=== PATIENT | male | born 1975 | race Caucasian/White ===

== ENCOUNTER 2021-10-15 10:24 | Emergency (ER) | payer MEDICAID, SELFPAY ==
[2021-10-15 10:43] VITALS: BP 158/100; PULSE 83; RESP 18; TEMP 36; O2SAT 98; BMI 33.9
--- NOTE | 2021-10-15 10:55 | ED_ITS ---
HPI - Alcohol General Chief Complaint: ETOH/Substance Use Stated Complaint: Alcohol withdrawals/detox Time Seen by Provider: 10/15/21 10:54 Source: patient Mode of arrival: ambulatory Limitations: no limitations History of Present Illness MD complaint: alcohol withdrawal, alcohol dependence and desires rehab Last drink: Hours (ago) (took a shot this AM) Chronic alcohol use: Yes Previous visits for alcohol intoxication: Yes Recent trauma: No Associated symptoms: nausea and tremors Treatments prior to arrival: none Related Data Allergies Allergy/AdvReac Type Severity Reaction Status Date / Time codeine [CODEINE] Allergy Unknown CONSTIPATIO Verified 10/15/21 10:42 N Review of Systems Review of Systems: Constitutional : No Fever, No Chills ENT/Mouth : No Ear Pain, No Nasal Congestion, No sore throat Eyes: No Eye Pain, No Swelling, No Redness Cardiovascular : No Chest Pain, No SOB Respiratory : No Cough, No Sputum, No Dyspnea Gastrointestinal : pos Nausea, pos Vomiting, No Diarrhea, No Hematochezia, No Melena Genitourinary : No Dysuria, No Urinary Frequency, No Hematuria Musculoskeletal : No Myalgias Skin : No Skin Lesions, No rash Neuro : pos Weakness, No Numbness, No Paresthesias, No Dizziness, No Headache Psych : positive Anxiety, positive Depression, no SI/HI Heme/Lymph: No Lymphadenopathy Endocrine : No Polyuria, No Polydipsia All other systems reviewed and are negative [facility] Past Medical History Attestation statement: The following information was validated with the patient. Medical History Alcoholism HTN (hypertension) Substance abuse Social History Social History (Updated 10/15/21 @ 11:29 by Elaina Saunders DO) Alcohol intake: current Patient Tobacco Use Status: Current someday Tobacco user Substance Use Type: Crack/Cocaine Advance Directives: No Advance Directives Information Provided: Yes Physical Exam Vital Signs: Vital Signs: Last Vital Signs Temp 96.8 F 10/15/21 10:43 Pulse 96 10/15/21 14:50 Resp 20 10/15/21 14:50 BP 150/81 H 10/15/21 14:50 Pulse Ox 98 10/15/21 10:43 BMI result Body Mass Index 33.9 Appearance: Alert. Oriented X3. No acute distress. Anxious Eyes: Pupils equal, round and reactive to light. ENT: Pharynx normal. Neck: Normal inspection. Neck supple. CVS: tachycardic heart rate and rhythm. Pulses normal. Respiratory: No respiratory distress. Breath sounds normal. Abdomen: Soft and nontender. Skin: Skin warm and dry. Normal skin color. Normal skin turgor. Extremities: No lower extremity edema. No calf ttp Neuro: Oriented X 3. No motor deficit. No sensory deficit. slight tremor Course Course Course Narrative: patint looks much better at this time trying to get a bed with detox - recovery team helping patient looks much better, medically cleared for detox MDM - Alcohol MDM Narrative Medical decision making narrative: 46 yo male with hx of HTN, ETOH abuse rel apsed 5 months ago, did use cocaine recently here with c/o n/v and feeling shaky at this time will need labs, IVF, IV ativan for withdrawal. Will attempt to improve him if no response will admit vs detox - recovery coaches aware. Lab Data Result diagrams: 10/15/21 11:27 10/15/21 11:27 Labs: Lab Results 10/15/21 10/15/21 10/15/21 Range/Units 11:27 11:27 11:27 WBC 8.8 (4.8-10.8) X10*3/uL RBC 4.85 (4.60-5.80) X10*6/uL Hgb 14.8 (14.0-18.0) g/dl Hct 43.5 (42.0-52.0) % MCV 89.7 (80.0-98.0) fL MCH 30.5 (27.0-33.0) pg MCHC 34.0 (31.0-36.0) g/dl RDW 15.4 (11.0-16.0) % Plt Count 370 (160-400) X10*3/uL MPV 8.2 L (9.4-12.4) fL Immature Gran % (Auto) 0.3 (0.0-0.4) % Neut % (Auto) 83.0 H (45-73) % Lymph % (Auto) 11.9 L (20-40) % [place] % (Auto) 4.1 (2-11) % Eos % (Auto) 0.0 (0-4) % Baso % (Auto) 0.7 (0-2) % Lymph # (Auto) 1.0 L (1.2-4.9) X10*3/uL [place] # (Auto) 0.4 (0.1-1.2) X10*3/uL Eos # (Auto) 0.0 (0.0-0.4) X10*3/uL Baso # (Auto) 0.1 (0.0-0.2) X10*3/uL Abs Immat Gran (auto) 0.03 (0.00-0.03) X10*3/uL Absolute Neuts (auto) 7.3 (2.0-8.3) x10*3/uL Absolute Nucleated RBC 0.000 (0.0-0.012) X10*3/uL Nucleated RBC % (auto) 0.0 (0.0-0.2) /100WBC Sodium 141 (135-145) mmol/L Potassium 4.0 (3.3-5.1) mmol/L Chloride 105 (96-108) mmol/L Carbon Dioxide 21 L (22-29) mmol/L Anion Gap 19 (12-20) BUN 14 (9-16) mg/dL Creatinine 0.95 (0.5-1.4) mg/dL Estim Creat Clear Calc 102.7 Estimated GFR > 60 Random Glucose 112 (60-115) mg/dL Calcium 9.7 (8.4-10.2) mg/dL Magnesium 1.6 (1.6-2.6) mg/dL Total Bilirubin 0.6 (0.0-1.0) mg/dL Direct Bilirubin 0.2 (0.0-0.5) mg/dL AST 40 H (5-37) U/L ALT 36 (0-40) U/L Alkaline Phosphatase 96 (39-117) U/L Total Protein 8.0 (6.5-8.0) g/dL Albumin 4.5 (3.5-5.0) g/dL Lipase 57 (8-78) U/L Urine Opiates Screen (Not Detect) Urine Fentanyl Screen (Not Detect) Ur Barbiturates Screen (Not Detect) Ur Phencyclidine Scrn (Not Detect) Ur Amphetamines Screen (Not Detect) U Benzodiazepines Scrn (Not Detect) Urine Cocaine Screen (Not Detect) U Marijuana (THC) Screen (Not Detect) Ethyl Alcohol mg/dL COVID-19 (MATILDE) Negative (Negative) COVID-19 Clin Com See Note 10/15/21 10/15/21 Range/Units 11:27 13:36 WBC (4.8-10.8) X10*3/uL RBC (4.60-5.80) X10*6/uL Hgb (14.0-18.0) g/dl Hct (42.0-52.0) % MCV (80.0-98.0) fL MCH (27.0-33.0) pg MCHC (31.0-36.0) g/dl RDW (11.0-16.0) % Plt Count (160-400) X10*3/uL MPV (9.4-12.4) fL Immature Gran % (Auto) (0.0-0.4) % Neut % (Auto) (45-73) % Lymph % (Auto) (20-40) % [place] % (Auto) (2-11) % Eos % (Auto) (0-4) % Baso % (Auto) (0-2) % Lymph # (Auto) (1.2-4.9) X10*3/uL [place] # (Auto) (0.1-1.2) X10*3/uL Eos # (Auto) (0.0-0.4) X10*3/uL Baso # (Auto) (0.0-0.2) X10*3/uL Abs Immat Gran (auto) (0.00-0.03) X10*3/uL Absolute Neuts (auto) (2.0-8.3) x10*3/uL Absolute Nucleated RBC (0.0-0.012) X10*3/uL Nucleated RBC % (auto) (0.0-0.2) /100WBC Sodium (135-145) mmol/L Potassium (3.3-5.1) mmol/L Chloride (96-108) mmol/L Carbon Dioxide (22-29) mmol/L Anion Gap (12-20) BUN (9-16) mg/dL Creatinine (0.5-1.4) mg/dL Estim Creat Clear Calc Estimated GFR Random Glucose (60-115) mg/dL Calcium (8.4-10.2) mg/dL Magnesium (1.6-2.6) mg/dL Total Bilirubin (0.0-1.0) mg/dL Direct Bilirubin (0.0-0.5) mg/dL AST (5-37) U/L ALT (0-40) U/L Alkaline Phosphatase (39-117) U/L Total Protein (6.5-8.0) g/dL Albumin (3.5-5.0) g/dL Lipase (8-78) U/L Urine Opiates Screen Not Detected (Not Detect) Urine Fentanyl Screen POSITIVE H (Not Detect) Ur Barbiturates Screen Not Detected (Not Detect) Ur Phencyclidine Scrn Not Detected (Not Detect) Ur Amphetamines Screen Not Detected (Not Detect) U Benzodiazepines Scrn Not Detected (Not Detect) Urine Cocaine Screen POSITIVE H (Not Detect) U Marijuana (THC) Screen POSITIVE H (Not Detect) Ethyl Alcohol 34 mg/dL COVID-19 (MATILDE) (Negative) COVID-19 Clin Com ECG Data ECG #1: Attestation: I personally reviewed and interpreted this ECG as follows: ECG interpretation date: 10/15/21 ECG interpretation time: 12:02 Interpretation: Rate: 87 Rhythm: NSR [place]: left Normal P waves. Normal JOHN. incomplete RBBB ST T wave : normal no KOKO qTC: normal prior studies: no acute ischemia The study has been interpreted contemporaneously by me. . Discharge Plan Discharge Clinical Impression: Alcohol withdrawal syndrome Patient Disposition: Home, Self-Care Instructions: Abuse of Alcohol (ED), Alcohol Withdrawal (ED) Additional Instructions: return to ED for any worsening symptoms or concerns please go to detox
--- NOTE | 2021-10-15 11:05 | ECG_ITS ---
Test Reason : ETOH Blood Pressure : / mmHG Vent. Rate : 087 BPM Atrial Rate : 087 BPM P-R Int : 162 ms QRS Dur : 098 ms QT Int : 358 ms P-R-T Axes : 053 -26 012 degrees QTc Int : 430 ms Normal sinus rhythm with sinus arrhythmia Incomplete right bundle branch block Borderline ECG When compared with ECG of 13-MAR-2004 21:54, No significant change was found Referred By: Elaina Saunders Electronically Signed By:Malcom Leslie
[2021-10-15 11:33] LABS: MANUAL DIFF FLAG NO
[2021-10-15] MEDS: 0.9 % Sodium Chloride 1,000 ML 999 ML IVCONT ×2 (11:34→12:43)
[2021-10-15] MEDS: LORazepam 2 MG/ML VIAL IVPUSH (11:34)
[2021-10-15] MEDS: ondansetron HCL 4 MG/2 ML VIAL IVPUSH (11:34)
[2021-10-15 11:35] LABS: Basophils Absolute Auto 0.1 X10*3/uL (0.0-0.2); Basophils Percent Auto 0.7 % (0-2); Hematocrit 43.5 % (42.0-52.0); Hemoglobin 14.8 g/dl (14.0-18.0); Imm Gran Abs Auto 0.03 X10*3/uL (0.00-0.03); Imm Gran Pct Auto 0.3 % (0.0-0.4); Lymphocytes Percent Auto 11.9 % (20-40); Mean Corpuscular Hemoglobin 30.5 pg (27.0-33.0); Mean Corpuscular Volume 89.7 fL (80.0-98.0); Mean Platelet Volume 8.2 fL (9.4-12.4); Monocytes Absolute Auto 0.4 X10*3/uL (0.1-1.2); Monocytes Percent Auto 4.1 % (2-11); Neutrophils Absolute Auto 7.3 x10*3/uL (2.0-8.3); Platelet Count 370 X10*3/uL (160-400); Red Blood Count 4.85 X10*6/uL (4.60-5.80); Red Cell Distribution Width 15.4 % (11.0-16.0); White Blood Count 8.8 X10*3/uL (4.8-10.8)
[2021-10-15 11:49] LABS: Ethanol 34 mg/dL
[2021-10-15 11:54] LABS: Alanine Aminotransferase 36 U/L (0-40); Albumin Level 4.5 g/dL (3.5-5.0); Alkaline Phosphatase 96 U/L (39-117); Anion Gap 19 (12-20); Aspartate Amino Transferase 40 U/L (5-37); Bilirubin Direct 0.2 mg/dL (0.0-0.5); Bilirubin Total 0.6 mg/dL (0.0-1.0); Blood Urea Nitrogen 14 mg/dL (9-16); Calcium 9.7 mg/dL (8.4-10.2); Carbon Dioxide 21 mmol/L (22-29); Chloride 105 mmol/L (96-108); Creatinine Clr Calc Pharmacy 102.7; Estimated Glomerular Filt Rate > 60; Glucose Random 112 mg/dL (60-115); Lipase 57 U/L (8-78); Magnesium 1.6 mg/dL (1.6-2.6); Sodium 141 mmol/L (135-145)
[2021-10-15 12:05] LABS: COVID-19 Test Negative (Negative)
--- NOTE | 2021-10-15 12:30 | MHC.RECOVSUP ---
? Reason for consult:Recovery Support o Current location:ED22 o Identified substance use concern: ETOH - Withdrawal - Seeking ATS (detox) - Support ? Intervention: o ATS bed search started/completed/in process o MAT started or to be started o Community resources provided o Harm reduction discussion ? Plan: o Referral to CCC o Bed search in progress to o Patient to follow up with [facility] after discharge ? Additional information: Patient seeking detox, currently have a bed pending with [facility]. Patient given community resources and pt waiting for a bed.
[2021-10-15] MEDS: chlordiazePOXIDE HCl 25 MG CAPSULE 50 MG PO (13:48)
[2021-10-15 13:51] VITALS: BP 152/113; PULSE 105; RESP 14
[2021-10-15 14:01] LABS: Amphetamine Screen Urine Not Detected (Not Detect); Barbiturates, Urine Not Detected (Not Detect); Benzodiazepines Screen Urine Not Detected (Not Detect); Cannabinoid Screen Urine POSITIVE (Not Detect); Cocaine Screen Urine POSITIVE (Not Detect); Fentanyl, urine POSITIVE (Not Detect); Opiate Screen Urine Not Detected (Not Detect); Phencyclidine Screen Urine Not Detected (Not Detect)
[2021-10-15 14:50] VITALS: BP 150/81; PULSE 96; RESP 20
--- NOTE | 2021-10-15 15:41 | MHC.RECOVRN ---
Pt accepted to [facility] ATS in [place]. Pt will have clothes/belongings dropped off at [facility] around 7PM and can then be discharged to [facility]. Oma at [facility] aware that pt will be presenting around 9PM. Discussed with Dr. Saunders as well as CARE Team.
[2021-10-15] MEDS: chlordiazePOXIDE HCl 25 MG CAPSULE 75 MG PO (16:00)
== END 2021-10-15 18:12 | disposition home or self-care (01) ==
PROVIDERS: Emergency Provider Emergency Medicine
DX: F10.239 Alcohol dependence with withdrawal, unspecified (principal); Y90.1 Blood alcohol level of 20-39 mg/100 ml; R11.0 Nausea; R25.1 Tremor, unspecified; Z20.822 Contact with and (suspected) exposure to COVID-19; Z79.899 Other long term (current) drug therapy
CPT/HCPCS: 36415; 80048; 80076; 80307; 82077; 83690; 83735; 85025; 87635; 93005; 96361; 96374; 96375; 99284; J2060; J2405

== ENCOUNTER 2021-10-28 14:38 | Emergency (ER) | payer MEDICAID, SELFPAY ==
[2021-10-28 14:55] VITALS: BP 128/85; BP 200/100; PULSE 100; PULSE 102; RESP 18; O2SAT 94; O2SAT 99; BMI 33.9
--- NOTE | 2021-10-28 15:09 | ED.GENADULT ---
HPI - General Adult General Chief complaint: ETOH/Substance Use Stated complaint: ETOH,CHRONIC BACK PAIN,HIGH BP 200/112 Time Seen by Provider: 10/28/21 14:42 Source: patient, EMS and old records reviewed History of Present Illness HPI narrative: Patient with several medical complaints. 1. Back pain, acute on chronic. Patient with a history of spondylolisthesis L5 on S1. Has been on gabapentin for this in the past but has no primary care physician and is not taking any meds current week. No recent traumas other than a fall. No bowel or bladder incontinence. Complains of pain radiating down his leg. He states it is 10 on 10 and the worst it has ever been. 2. Alcohol use disorder. Patient with recent visit here, 2 weeks ago for alcohol withdrawal. At the time he was placed and detox and was tear. He was there for 4 days but left stating the Valium made him sick. He states he had 10 shots today. Denies withdrawal symptoms at the moment. He states he needs a ?level 4 ?detox center. He has not been any other detox facilities other than the 1 in was 2. 3. Hypertension. Patient states he used to be on propranolol for hypertension but since he has no PCP has not been on any medications. Blood pressure was systolic of 200 for EMS. Currently in the emergency department is much better controlled 128/85. 4. Homelessness. Patient called an ambulance from his tent in [facility] He has a primary care appointment set up in December, but that is an emergent [place]. He states he will take a bus if needed. He states he has had 2 doses of COVID-19 vaccine, last 1 in May Related Data Allergies Allergy/AdvReac Type Severity Reaction Status Date / Time codeine [CODEINE] Allergy Unknown CONSTIPATIO Verified 10/15/21 10:42 N diazepam [From Valium] AdvReac Hypertensio Verified 10/28/21 15:01 n Review of Systems Constitutional: Constitutional: Denies fever(s) Cardiovascular: Comments: No chest pain Respiratory: Comments: No cough or difficulty breathing Gastrointestinal: Comments: No nausea vomiting Musculoskeletal: Comments: Back pain radiating down leg Integumentary/Breasts: Comments: No rash Neurologic: Comments: Difficulty walking but no other signs of weakness PMFSH Past Medical History Medical History Alcoholism HTN (hypertension) Substance abuse Social History Social History (Updated 10/15/21 @ 11:29 by Elaina Saunders DO) Alcohol intake: current Patient Tobacco Use Status: Current someday Tobacco user Substance Use Type: Crack/Cocaine Advance Directives: No Advance Directives Information Provided: No Physical Exam Vital Signs: Vital Signs: Last Vital Signs Pulse 102 H 10/28/21 14:55 Resp 18 10/28/21 14:55 BP 128/85 10/28/21 14:55 Pulse Ox 99 10/28/21 14:55 BMI result Body Mass Index 33.9 Course Course Course Narrative: Alcohol use disorder Acute on chronic back pain with radiculopathy without evidence of neurologic compromise Hypertension, untreated Homelessness Ativan and Toradol and gabapentin ordered, but patient stated he wanted to leave to have a cigarette and left AMA before treatment here in the emergency department. Ambulates without difficulty We encouraged he stay and seek help but he declines. Although likely intoxicated, he is not slurring his words and appears capable of making his own healthcare decisions, and does not have any apparent immediately life or limb threatening conditions Discharge Plan Discharge Clinical Impression: Alcohol use disorder, moderate, dependence Sciatica Qualifiers: Laterality: unspecified laterality Qualified Code(s): M54.30 - Sciatica, unspecified side Patient Disposition: Left Against Medical Advice Instructions: Alcohol Use Disorder (ED), Sciatica (ED)
--- NOTE | 2021-10-28 15:19 | PC.NURSE ---
pt ambulating around the ed with a steady gait. he was asking to go out to smoke a cigarette, he was educated on the policy and that he cannot leave campus an ER pt. He then became verbally abrasive and collected his belongings and left the ED. is aware that the patient has eloped.
== END 2021-10-28 15:20 | disposition left against medical advice (07) ==
PROVIDERS: Emergency Provider Emergency Medicine
DX: F10.20 Alcohol dependence, uncomplicated (principal); Y90.9 Presence of alcohol in blood, level not specified; M54.40 Lumbago with sciatica, unspecified side; I10 Essential (primary) hypertension; F14.10 Cocaine abuse, uncomplicated
CPT/HCPCS: 99281

== ENCOUNTER 2021-10-29 15:08 | Emergency (ER) | payer MEDICAID, SELFPAY ==
[2021-10-29] MEDS: LORazepam 1 MG TABLET 2 MG PO (16:04)
[2021-10-29] MEDS: Ibuprofen 600 MG TABLET PO (16:22)
[2021-10-29] MEDS: Acetaminophen 325 MG TABLET 650 MG PO (16:22)
[2021-10-29 16:30] VITALS: BP 180/112; PULSE 111; RESP 18; TEMP 36.8; O2SAT 97; BMI 33.9
--- NOTE | 2021-10-29 16:55 | PC.NURSE ---
Patient escorted by staff and security in to pod was able to communicate issues with this nurse and EXPELL[employer] WORKER Carlos. Aware of plan of care to have labs drawn and speak with CARE team. Will continue to monitor.
[2021-10-29 17:10] LABS: MANUAL DIFF FLAG NO
[2021-10-29 17:13] LABS: Basophils Absolute Auto 0.1 X10*3/uL (0.0-0.2); Basophils Percent Auto 0.9 % (0-2); Eosinophils Absolute Auto 0.1 X10*3/uL (0.0-0.4); Eosinophils Percent Auto 0.8 % (0-4); Hematocrit 42.9 % (42.0-52.0); Hemoglobin 14.5 g/dl (14.0-18.0); Imm Gran Abs Auto 0.06 X10*3/uL (0.00-0.03); Imm Gran Pct Auto 0.6 % (0.0-0.4); Lymphocytes Percent Auto 28.6 % (20-40); Mean Corpuscular HGB Conc 33.8 g/dl (31.0-36.0); Mean Corpuscular Hemoglobin 29.9 pg (27.0-33.0); Mean Corpuscular Volume 88.5 fL (80.0-98.0); Mean Platelet Volume 8.5 fL (9.4-12.4); Monocytes Absolute Auto 0.6 X10*3/uL (0.1-1.2); Monocytes Percent Auto 6.1 % (2-11); Neutrophils Absolute Auto 6.7 x10*3/uL (2.0-8.3); Platelet Count 384 X10*3/uL (160-400); Red Blood Count 4.85 X10*6/uL (4.60-5.80); Red Cell Distribution Width 14.7 % (11.0-16.0); White Blood Count 10.5 X10*3/uL (4.8-10.8)
[2021-10-29 17:28] LABS: Ethanol 57 mg/dL
[2021-10-29 17:29] LABS: COVID-19 Test Negative (Negative); IDNOW Serial# 9DD0AD1C
[2021-10-29 17:31] LABS: Amphetamine Screen Urine Not Detected (Not Detect); Barbiturates, Urine Not Detected (Not Detect); Benzodiazepines Screen Urine POSITIVE (Not Detect); Cannabinoid Screen Urine POSITIVE (Not Detect); Cocaine Screen Urine Not Detected (Not Detect); Fentanyl, urine Not Detected (Not Detect); Opiate Screen Urine Not Detected (Not Detect); Phencyclidine Screen Urine Not Detected (Not Detect)
[2021-10-29 17:32] LABS: Alanine Aminotransferase 47 U/L (0-40); Albumin Level 4.4 g/dL (3.5-5.0); Alkaline Phosphatase 114 U/L (39-117); Anion Gap 14 (12-20); Aspartate Amino Transferase 35 U/L (5-37); Bilirubin Total 0.4 mg/dL (0.0-1.0); Blood Urea Nitrogen 9 mg/dL (9-16); Calcium 9.9 mg/dL (8.4-10.2); Carbon Dioxide 25 mmol/L (22-29); Chloride 107 mmol/L (96-108); Creatinine Clr Calc Pharmacy 86.3; Estimated Glomerular Filt Rate > 60; Glucose Random 89 mg/dL (60-115); Sodium 142 mmol/L (135-145); Total Protein 7.8 g/dL (6.5-8.0)
--- NOTE | 2021-10-29 17:59 | PC.NURSE ---
speaking to crisis staff at this time
--- NOTE | 2021-10-29 18:14 | ED.PSYCH ---
HPI - Psych General Chief Complaint: Psychiatric Symptoms Stated Complaint: Crisis Time Seen by Provider: 10/29/21 15:53 Source: patient Mode of arrival: ambulatory Limitations: no limitations History of Present Illness HPI Narrative: Patient presents to ED for medical and psych clearance for detox. Patient spoke with a detox program was informed that he would need to be seen and cleared medically and evaluated by crisis due to psych history. Patient was in parking lot and became aggressive toward myself and ED staff when he realized his can not stay with him in the ED due to no visitor rule due to covid pandemic. As per patient is not compliant with psych meds and she want him to be evaluated. Patient was not suicidal/ homicidal. believes crisis and detox evaluation is necesarry so patient was Section 12 and brought to the ED. Patient and states he has a bed at a detox program and just needs be medically and crisis evaluated. Related Data Allergies Allergy/AdvReac Type Severity Reaction Status Date / Time codeine [CODEINE] Allergy Unknown CONSTIPATIO Verified 10/15/21 10:42 N diazepam [From Valium] AdvReac Hypertensio Verified 10/28/21 15:01 n Review of Systems Review of Systems: Yes all other systems are reviewed and are negative [facility] Past Medical History Medical History Alcoholism HTN (hypertension) Substance abuse Social History Social History (Updated 10/15/21 @ 11:29 by Elaina Saunders DO) Alcohol intake: current Patient Tobacco Use Status: Current someday Tobacco user Substance Use Type: Crack/Cocaine Advance Directives: No Advance Directives Information Provided: No Physical Exam Vital Signs: Vital Signs: Last Vital Signs Temp 98.3 F 10/29/21 18:24 Pulse 110 H 10/29/21 18:24 Resp 16 10/29/21 18:24 BP 145/115 H 10/29/21 18:24 Pulse Ox 97 10/29/21 18:24 BMI result Body Mass Index 33.9 Const: General: cooperative, healthy appearing, comfortable, no acute distress, well developed, alert, awake and Physically active Orientation/consciousness: patient oriented x3 HENMT: Head: Yes normal to inspection, Yes No palpable skull fracture present, Yes normocephalic, Yes atraumatic and No abrasion Eyes: General: appearance normal, both eyes and all related structures Neck: Neck: Yes normal visual inspection, Yes full ROM, Yes no lymphadenopathy, Yes no meningeal signs, Yes trachea midline, Yes supple, No anterior neck swelling and No tender Chest: Chest palpation & inspection: normal inspection of the chest and normal palpation of entire chest wall Resp: Effort & Inspection: normal respiratory effort and able to speak in complete sentences Auscultation: clear to auscultation bilaterally Cardio: Jugular venous distension: no JVD Heart sounds: S1 normal heart sound present and S2 normal heart sound present GI: Inspection: Yes normal to inspection and No abdominal wall ecchymosis Palpation (GI): Soft to palpation, not firm, nontender, no guarding and not rigid : General: No CVA tenderness and Yes no CVA tenderness Back/Spine/Pelvis: Back: no CVA tenderness, No CVA tenderness and No back tenderness Skin: General skin exam: no rashes or lesions noted and elasticity normal Neuro: General: patient oriented x3, gait normal, no meningeal signs and CN's II-XI intact bilaterally Cranial nerves: Yes CN's II-XII intact bilaterally Extrem: General: Yes normal to inspection and Yes full ROM Psych: Appearance: grossly normal, well kempt and not disheveled Course Course Course Narrative: Labs and care team. Patient hypertensive due to blood pressure being taking well patient was arguing with security and medical staff. Reevaluation(s) Reevaluation #1: Patient labs are normal. Patient medically clean. Care team consulted Leonila evaluated patient states patient could be discharged and given referral for outpatient detox for detox. Patient will call detox program where he has a bed tomorrow morning to go to facility. patient picked up by . Patient is A0x3 and calm. Time: 18:16 MDM - Psych MDM Narrative Medical decision making narrative: Detox Lab Data Result diagrams: 10/29/21 17:05 10/29/21 17:05 Labs: Lab Results 10/29/21 10/29/21 10/29/21 Range/Units 17:05 17:05 17:05 WBC 10.5 (4.8-10.8) X10*3/uL RBC 4.85 (4.60-5.80) X10*6/uL Hgb 14.5 (14.0-18.0) g/dl Hct 42.9 (42.0-52.0) % MCV 88.5 (80.0-98.0) fL MCH 29.9 (27.0-33.0) pg MCHC 33.8 (31.0-36.0) g/dl RDW 14.7 (11.0-16.0) % Plt Count 384 (160-400) X10*3/uL MPV 8.5 L (9.4-12.4) fL Immature Gran % (Auto) 0.6 H (0.0-0.4) % Neut % (Auto) 63.0 (45-73) % Lymph % (Auto) 28.6 (20-40) % [place] % (Auto) 6.1 (2-11) % Eos % (Auto) 0.8 (0-4) % Baso % (Auto) 0.9 (0-2) % Lymph # (Auto) 3.0 (1.2-4.9) X10*3/uL [place] # (Auto) 0.6 (0.1-1.2) X10*3/uL Eos # (Auto) 0.1 (0.0-0.4) X10*3/uL Baso # (Auto) 0.1 (0.0-0.2) X10*3/uL Abs Immat Gran (auto) 0.06 H (0.00-0.03) X10*3/uL Absolute Neuts (auto) 6.7 (2.0-8.3) x10*3/uL Absolute Nucleated RBC 0.000 (0.0-0.012) X10*3/uL Nucleated RBC % (auto) 0.0 (0.0-0.2) /100WBC Sodium 142 (135-145) mmol/L Potassium 4.0 (3.3-5.1) mmol/L Chloride 107 (96-108) mmol/L Carbon Dioxide 25 (22-29) mmol/L Anion Gap 14 (12-20) BUN 9 (9-16) mg/dL Creatinine 1.13 (0.5-1.4) mg/dL Estim Creat Clear Calc 86.3 Estimated GFR > 60 Random Glucose 89 (60-115) mg/dL Calcium 9.9 (8.4-10.2) mg/dL Total Bilirubin 0.4 (0.0-1.0) mg/dL AST 35 (5-37) U/L ALT 47 H (0-40) U/L Alkaline Phosphatase 114 (39-117) U/L Total Protein 7.8 (6.5-8.0) g/dL Albumin 4.4 (3.5-5.0) g/dL Urine Opiates Screen (Not Detect) Urine Fentanyl Screen (Not Detect) Ur Barbiturates Screen (Not Detect) Ur Phencyclidine Scrn (Not Detect) Ur Amphetamines Screen (Not Detect) U Benzodiazepines Scrn (Not Detect) Urine Cocaine Screen (Not Detect) U Marijuana (THC) Screen (Not Detect) Ethyl Alcohol mg/dL COVID-19 (MATILDE) Negative (Negative) COVID-19 Clin Com See Note 10/29/21 10/29/21 Range/Units 17:05 17:05 WBC (4.8-10.8) X10*3/uL RBC (4.60-5.80) X10*6/uL Hgb (14.0-18.0) g/dl Hct (42.0-52.0) % MCV (80.0-98.0) fL MCH (27.0-33.0) pg MCHC (31.0-36.0) g/dl RDW (11.0-16.0) % Plt Count (160-400) X10*3/uL MPV (9.4-12.4) fL Immature Gran % (Auto) (0.0-0.4) % Neut % (Auto) (45-73) % Lymph % (Auto) (20-40) % [place] % (Auto) (2-11) % Eos % (Auto) (0-4) % Baso % (Auto) (0-2) % Lymph # (Auto) (1.2-4.9) X10*3/uL [place] # (Auto) (0.1-1.2) X10*3/uL Eos # (Auto) (0.0-0.4) X10*3/uL Baso # (Auto) (0.0-0.2) X10*3/uL Abs Immat Gran (auto) (0.00-0.03) X10*3/uL Absolute Neuts (auto) (2.0-8.3) x10*3/uL Absolute Nucleated RBC (0.0-0.012) X10*3/uL Nucleated RBC % (auto) (0.0-0.2) /100WBC Sodium (135-145) mmol/L Potassium (3.3-5.1) mmol/L Chloride (96-108) mmol/L Carbon Dioxide (22-29) mmol/L Anion Gap (12-20) BUN (9-16) mg/dL Creatinine (0.5-1.4) mg/dL Estim Creat Clear Calc Estimated GFR Random Glucose (60-115) mg/dL Calcium (8.4-10.2) mg/dL Total Bilirubin (0.0-1.0) mg/dL AST (5-37) U/L ALT (0-40) U/L Alkaline Phosphatase (39-117) U/L Total Protein (6.5-8.0) g/dL Albumin (3.5-5.0) g/dL Urine Opiates Screen Not Detected (Not Detect) Urine Fentanyl Screen Not Detected (Not Detect) Ur Barbiturates Screen Not Detected (Not Detect) Ur Phencyclidine Scrn Not Detected (Not Detect) Ur Amphetamines Screen Not Detected (Not Detect) U Benzodiazepines Scrn POSITIVE H (Not Detect) Urine Cocaine Screen Not Detected (Not Detect) U Marijuana (THC) Screen POSITIVE H (Not Detect) Ethyl Alcohol 57 mg/dL COVID-19 (MATILDE) (Negative) COVID-19 Clin Com Discharge Plan Discharge Clinical Impression: Alcohol use Patient Disposition: Home, Self-Care Instructions: Alcohol Use Disorder (ED) Additional Instructions: You were cleared by crisis. Your medical cleared for detox. Please call your detox program for your bed tomorrow morning. Return to the ED immediately for any suicidal/homicidal ideation, auditory/visual hallucinations, physical complaints, or any other concerning symptoms. Please follow-up with therapist and Primary care provider Discharge Date/Time: 10/29/21 18:27 Print Language: Salvadorean
[2021-10-29 18:24] VITALS: BP 145/115; PULSE 110; RESP 16; TEMP 36.8; O2SAT 97
--- NOTE | 2021-10-29 18:25 | PC.NURSE ---
Patient is alert and oriented x 4 lung sounds are clear skin is pink warm and dry speaks in full sentences without difficulty. verbalized understanding of discharge instruction left with detox paperwork and belongings
== END 2021-10-29 18:27 | disposition home or self-care (01) ==
PROVIDERS: Physician Assistant; Emergency Provider Emergency Medicine
DX: F10.20 Alcohol dependence, uncomplicated (principal); Y90.2 Blood alcohol level of 40-59 mg/100 ml; I10 Essential (primary) hypertension; Z91.14 Patient's other noncompliance with medication regimen; Z20.822 Contact with and (suspected) exposure to COVID-19
CPT/HCPCS: 36415; 80053; 80307; 82077; 85025; 87635; 99283; 99284

== ENCOUNTER 2024-09-04 11:09 | Emergency (ER) | payer MEDICAID, SELFPAY ==
--- NOTE | ~2024-09-04 | US_ITS ---
EXAMINATION: US TRIPLEX LOWER EXTREMITY, RIGHT CLINICAL INFORMATION: Pain evaluate for DVT COMPARISON: Ultrasound lower extremity venous Doppler right from 06/23/2019 TECHNIQUE: Color-flow triplex imaging with spectral analysis and compression Doppler were performed on the right lower extremity. FINDINGS: Respiratory variation, normal compression and augmented flow are noted throughout the right lower extremity. The visualized common femoral vein, superficial femoral vein, profunda femoral vein, popliteal vein and midcalf peroneal and posterior tibial venous segments show no evidence of deep venous thrombosis. Contralateral common femoral vein is patent. There is no Haynes's cyst. Region of the right mid lateral side is unremarkable. US/US venous duplex LE RT IMPRESSION: No evidence of deep venous thrombosis involving the right lower extremity. Electronically signed by: Dada Persaud MD 09/04/2024 12:02 PM EDT
--- NOTE | 2024-09-04 11:21 | ED.GENADULT ---
HPI - General Adult General Chief complaint: General Medical Stated complaint: blood clot r leg-sent by pcp Time Seen by Provider: 09/04/24 11:30 Source: patient Mode of arrival: ambulatory Limitations: no limitations History of Present Illness ED Provider: Jayden Finney HPI narrative: Patient is a 49-year-old male who presents emergency department for evaluation of right lower extremity pain and swelling over the past 2 months to his anterior thigh. He states he has not sought evaluation for this yet. Denies numbness or tingling to the leg. Denies history of VTE/malignancy. Reports no fevers or chills. Endorses history of IV drug abuse, but not over the past 3 months Related Data Allergies Allergy/AdvReac Type Severity Reaction Status Date / Time codeine [CODEINE] Allergy Unknown CONSTIPATIO Verified 09/04/24 11:23 N diazepam [From Valium] AdvReac Hypertensio Verified 09/04/24 11:23 n Review of Systems Review of Systems: Yes all other systems are reviewed and are negative PMFSH Past Medical History Attestation statement: The following information was validated with the patient. Source: old records reviewed Medical History Substance abuse HTN (hypertension) Alcoholism Social History Social History (Updated 10/15/21 @ 11:29 by Pricilla Saunders DO) Alcohol intake: current Patient Tobacco Use Status: Current someday Tobacco user Substance Use Type: Crack/Cocaine Advance Directives: No Advance Directives Information Provided: No Do you have a plan to hurt others: No Plan Physical Exam ED Vital Signs: Vital Signs - 24 hr 09/04/24 11:22 Temperature 98.2 F Pulse Rate 64 Respiratory Rate 18 Blood Pressure 151/79 H Pulse Oximetry 100 Oxygen Delivery Method Room Air BMI result Body Mass Index 36.8 Appearance: Alert.?Oriented to person, place and time. No acute distress.?Normal affect. CVS: Heart sounds normal. Normal heart rate and rhythm.? Pulses normal.?? Respiratory: No respiratory distress.? Lung sounds clear to auscultation bilaterally?? Abdomen: Soft and non-tender. Normoactive bowel sounds. Skin: Skin warm and dry.? Normal skin color.? Neuro: Moves all extremities spontaneously. Sensation intact bilaterally.Ambulates with normal steady gait. Course Course Course Narrative: This is a rapid medical exam. Deferred additional HPI, ROS, PE to primary provider. 49 yo male with history of HTN, DJD, sciatica, COPD, mental health, former OUD/alcohol use (previous IVDA, >3 months ago) here with complaints of right leg swelling/pain x 2 months. Will obtain labs, US Rosangela Ortiz APRN Medical Decision Making Medical Decision Making [facility] Narrative: Patient is a 49-year-old male past medical history HTN, DJD, sciatica, COPD, mental health, former OUD/alcohol use (previous IVDA, >3 months ago) presenting for evaluation of right lower extremity redness swelling and pain as per HPI. Serum labs as well as a venous duplex ultrasound were ordered from initial triage; CBC without leukocytosis, has a mild normocytic anemia that does not meet transfusion criteria, no thrombocytopenia. Normal coag studies. No electrolyte derangement. No ROSALBA. LFTs within normal range. At the time of my initial evaluation patient was wearing pants had yet to change into a hospital attire, when I re-presented to the room pump house technician was at bedside performing scan, following this patient walked out of the emergency department reporting to registration that he needed to have a cigarette. I saw no evidence of erythema of the extremity to appreciate any obvious asymmetrical swelling, was unable to assess for reported warmth or whether there was any tenderness to this area on examination before he left. Venous duplex ultrasound has resulted and is without evidence of DVT. Pulses were palpated, I suspect it is unlikely that he had an arterial occlusion extremity not cool or pulseless. Differential Diagnosis Differential Diagnoses: The differential diagnosis associated with the presentation includes (See narrative above) Admission/Observation Consideration of admission/observation: Escalation of care including admission/observation considered (See narrative above) Lab Data [facility] Lab Attestation statement: I reviewed the patient's lab results. (See narrative above) 09/04/24 11:32 09/04/24 11:32 Labs: Lab Results 09/04/24 Range/Units 11:32 WBC 8.1 (4.8-10.8) X10*3/uL RBC 4.34 L (4.60-5.80) X10*6/uL Hgb 12.9 L (14.0-18.0) g/dl Hct 37.8 L (42.0-52.0) % MCV 87.1 (80.0-98.0) fL MCH 29.7 (27.0-33.0) pg MCHC 34.1 (31.0-36.0) g/dl RDW 13.9 (11.0-16.0) % Plt Count 312 (160-400) X10*3/uL MPV 9.0 L (9.4-12.4) fL Immature Gran % (Auto) 0.4 (0.0-0.4) % Neut % (Auto) 61.4 (45-73) % Lymph % (Auto) 22.5 (20-40) % [place] % (Auto) 12.0 H (2-11) % Eos % (Auto) 2.8 (0-4) % Baso % (Auto) 0.9 (0-2) % Lymph # (Auto) 1.8 (1.2-4.9) X10*3/uL [place] # (Auto) 1.0 (0.1-1.2) X10*3/uL Eos # (Auto) 0.2 (0.0-0.4) X10*3/uL Baso # (Auto) 0.1 (0.0-0.2) X10*3/uL Abs Immat Gran (auto) 0.03 (0.00-0.03) X10*3/uL Absolute Neuts (auto) 5.0 (2.0-8.3) x10*3/uL Absolute Nucleated RBC 0.000 (0.0-0.012) X10*3/uL Nucleated RBC % (auto) 0.0 (0.0-0.2) /100WBC PT 11.1 (10.9-12.4) SEC INR 1.0 (0.9-1.1) Sodium 136 (135-145) mmol/L Potassium 4.3 (3.3-5.1) mmol/L Chloride 104 (96-108) mmol/L Carbon Dioxide 26 (22-29) mmol/L Anion Gap 10 L (12-20) BUN 14 (9-16) mg/dL Creatinine 0.86 (0.5-1.4) mg/dL Estim Creat Clear Calc 114.5 Estimated GFR > 60 Random Glucose 89 (60-115) mg/dL Calcium 9.3 D (8.4-10.2) mg/dL Total Bilirubin 0.3 (0.0-1.0) mg/dL AST 16 (5-37) U/L ALT 19 (0-40) U/L Alkaline Phosphatase 82 (39-117) U/L Total Protein 7.1 (6.5-8.0) g/dL Albumin 4.2 (3.5-5.0) g/dL Independent Interpretation I performed an independent interpretation of an: Ultrasound (No DVT) Radiology Impression Discussion of test interpretation with radiology: I have reviewed the radiologist's reading. Radiologist Impression: US/US venous duplex LE RT IMPRESSION: No evidence of deep venous thrombosis involving the right lower extremity. External Record Review External record reviewed: Outpatient record Discharge Plan Discharge Clinical Impression: Lower extremity pain, right Patient Disposition: Left W/O Completing Treatment Print Language: Macedonian
[2024-09-04 11:22] VITALS: BP 151/79; PULSE 64; RESP 18; TEMP 36.8; O2SAT 100; BMI 36.8
[2024-09-04 11:43] LABS: MANUAL DIFF FLAG NO
[2024-09-04 11:45] LABS: Basophils Absolute Auto 0.1 X10*3/uL (0.0-0.2); Basophils Percent Auto 0.9 % (0-2); Eosinophils Absolute Auto 0.2 X10*3/uL (0.0-0.4); Eosinophils Percent Auto 2.8 % (0-4); Hematocrit 37.8 % (42.0-52.0); Hemoglobin 12.9 g/dl (14.0-18.0); Imm Gran Abs Auto 0.03 X10*3/uL (0.00-0.03); Imm Gran Pct Auto 0.4 % (0.0-0.4); Lymphocytes Absolute Auto 1.8 X10*3/uL (1.2-4.9); Lymphocytes Percent Auto 22.5 % (20-40); Mean Corpuscular HGB Conc 34.1 g/dl (31.0-36.0); Mean Corpuscular Hemoglobin 29.7 pg (27.0-33.0); Mean Corpuscular Volume 87.1 fL (80.0-98.0); Neutrophils Percent Auto 61.4 % (45-73); Platelet Count 312 X10*3/uL (160-400); Red Blood Count 4.34 X10*6/uL (4.60-5.80); Red Cell Distribution Width 13.9 % (11.0-16.0); White Blood Count 8.1 X10*3/uL (4.8-10.8)
[2024-09-04 11:50] LABS: Prothrombin Time 11.1 SEC (10.9-12.4)
[2024-09-04 12:06] LABS: Alanine Aminotransferase 19 U/L (0-40); Albumin Level 4.2 g/dL (3.5-5.0); Alkaline Phosphatase 82 U/L (39-117); Anion Gap 10 (12-20); Aspartate Amino Transferase 16 U/L (5-37); Bilirubin Total 0.3 mg/dL (0.0-1.0); Blood Urea Nitrogen 14 mg/dL (9-16); Calcium 9.3 mg/dL (8.4-10.2); Carbon Dioxide 26 mmol/L (22-29); Chloride 104 mmol/L (96-108); Creatinine Clr Calc Pharmacy 114.5; Estimated Glomerular Filt Rate > 60; Glucose Random 89 mg/dL (60-115); Potassium 4.3 mmol/L (3.3-5.1); Sodium 136 mmol/L (135-145); Total Protein 7.1 g/dL (6.5-8.0)
[2024-09-04 13:04] VITALS: BP 00/00; PULSE 0; RESP 0; TEMP -17.7; TEMP 0; O2SAT 0
== END 2024-09-04 13:06 | disposition home or self-care (01) ==
PROVIDERS: Nurse Practitioner Family; Emergency Provider Emergency Medicine; PCP Family Medicine
DX: M79.604 Pain in right leg (principal); R60.0 Localized edema; I10 Essential (primary) hypertension; Z79.899 Other long term (current) drug therapy
CPT/HCPCS: 36415; 80053; 85025; 85610; 93971; 99282; 99283

== ENCOUNTER 2024-09-18 11:52 | Emergency (ER) | payer MEDICAID, SELFPAY ==
--- NOTE | 2024-09-18 11:54 | ED.GENADULT ---
HPI - General Adult General Chief complaint: Dizziness Stated complaint: dizzy-?blood sugar Source: patient Mode of arrival: ambulatory Limitations: no limitations History of Present Illness ED Provider: Amparo Nowak PA-C HPI narrative: Patient is a 49 year old assigned male at with a history of HTN and pre-diabetes presenting to the emergency department today requesting to have his blood sugar checked. Patient states that he has been having dizziness and feeling off. Patient states that he is concerned it is his sugar because he was told fairly recently that he is pre-diabetic. Patient denies any lightheadedness, abdominal pain, nausea, vomiting, fever, chills, blurry vision, double vision, loss of vision, chest pain, difficulty breathing, shortness of breath, back pain, night sweats, pain with urination, increased urinary frequency, increased urinary urgency, blood in his urine or stool, syncope or a near syncopal episode, recent trauma or falls, bowel incontinence, bladder incontinence, or any other complaints at this time. Relieving factors: none Exacerbating factors: none Associated symptoms: denies other symptoms Treatments prior to arrival: none Related Data Allergies Allergy/AdvReac Type Severity Reaction Status Date / Time codeine [CODEINE] Allergy Unknown CONSTIPATIO Verified 09/18/24 11:58 N diazepam [From Valium] AdvReac Hypertensio Verified 09/04/24 11:23 n Review of Systems Constitutional: Constitutional: Reports no additional constitutional complaints, Denies chills, Denies fever(s) and Denies night sweats Eyes: Eyes: Reports no additional eye complaints, Denies blurry vision, Denies change in vision, Denies diplopia, Denies eye discharge, Denies loss of vision and Denies eye pain ENT: Reports dizziness Cardiovascular: Cardiovascular: Reports no additional cardiovascular complaints, Denies chest pain, Denies lightheadedness, Denies Loss of Consciousness and Denies dyspnea Respiratory: Respiratory: Reports no additional respiratory complaints and Denies dyspnea Gastrointestinal: Gastrointestinal: Reports no additional gastrointestinal complaints, Denies abdominal pain, Denies melena, Denies hematochezia, Denies change in bowel habits and Denies change in stool character Genitourinary: Genitourinary: Reports no additional male genitourinary complaints, Denies hematuria, Denies oliguria, Denies difficulty urinating, Denies dysuria, Denies urinary frequency, Denies urinary hesitancy, Denies urinary incontinence and Denies urinary urgency Musculoskeletal: Musculoskeletal: Reports no additional musculoskeletal complaints, Denies numbness and Denies tingling Neurologic: Reports dizziness, Denies loss of vision, Denies numbness and Denies tingling Psychiatric: Psychiatric: Reports no additional psychiatric complaints Endocrine: Endocrine: Reports no additional endocrine complaints Hematologic/Lymphatic: Hematologic/Lymphatic: Reports no additional hematologic/lymphatic complaints Allergic/Immunologic: Allergic/Immunologic: Reports no additional allergic/immunologic complaints [facility] Past Medical History Attestation statement: The following information was validated with the patient. Source: old records reviewed and nursing notes reviewed Medical History Substance abuse HTN (hypertension) Alcoholism Social History Social History Alcohol intake: current Patient Tobacco Use Status: Current someday Tobacco user Substance Use Type: Crack/Cocaine Advance Directives: No Advance Directives Information Provided: No Physical Exam ED Vital Signs: Vital Signs - 24 hr 09/18/24 11:57 Temperature 95.8 F L Pulse Rate 74 Respiratory Rate 20 Blood Pressure 141/89 H Pulse Oximetry 95 Oxygen Delivery Method Room Air BMI result Body Mass Index 35.0 Const General: cooperative, no acute distress, alert and awake Nutritional Appearance: well nourished Orientation/consciousness: patient oriented x3 Limitations: no limitations HENMT Head: Yes normal to inspection and Yes atraumatic Ears: hearing grossly normal bilaterally and external ears normal General nose exam: Normal external nose present, no nasal discharge noted and no epistaxis Face and sinus: Yes normal facial exam, No abrasion and No laceration Mouth: Normal oral and palatal mucosa present, no drooling and no muffled voice Eyes General: appearance normal, both eyes and all related structures Periorbital: periorbital findings normal Eyelids: Yes eyelids normal Conjunctivae: conjunctivae normal Pupils: Equal, round and reactive pupils present EOM: EOMs intact bilaterally Neck Neck: Yes normal visual inspection, Yes full ROM and Yes no lymphadenopathy Chest Chest palpation & inspection: normal inspection of the chest Resp Effort & Inspection: normal respiratory effort and able to speak in complete sentences GI Inspection: Yes normal to inspection Neuro General: patient oriented x3 and moves all extremities Cranial nerves: Yes Equal, round and reactive pupils present Cognition (Neuro): normal cognition Extrem General: Yes normal to inspection, Yes full ROM and Yes capillary refill normal Psych Appearance: grossly normal Mental Status: mental status grossly normal Affect: normal affect Attitude: cooperative Thought process: Normal thought process present Thought content: Normal thought content present Insight: Good insight present (Psych) Course Course Course Narrative: RME performed by Amparo Nowak PA-C. Patient is a 49 year old assigned male at presenting to the emergency department with concerns about blood sugar. Patient states he has been having dizziness over the last few hours and is feeling unstable while riding his bike. Detailed physical exam and review of systems are deferred to the restaurant inspector. EKG, labs, imaging, and swabs ordered. Patient placed back in the waiting room pending room availability and results. Medical Decision Making Medical Decision Making [facility] Narrative: Patient is a 49 year old assigned male at with a history of HTN and pre-diabetes presenting to the emergency department today with dizziness. Patient's limited physical exam performed in triage was unremarkable. Patient's blood work was unremarkable. Patient's EKG was unremarkable. Patient left the department without completing treatment. Patient left the department before myself or any of the other emergency department clinicians could explain to or review with the patient; physical exam findings, test results, need or lack there of for additional testing, need or lack there of for a procedure to be performed, need or lack there of for hospital admission / transfer, need or lack there of for prescription medication, treatment options, or a treatment plan. Differential Diagnosis Differential Diagnoses: The differential diagnosis associated with the presentation includes Dizziness Hypoglycemia Admission/Observation Consideration of admission/observation: Escalation of care including admission/observation considered Patient would have been admitted to the hospital had he completed his work up and it had any findings where hospital admission was appropriate, his clinical presentation warranted hospital admission, had myself or any other emergency sales department supervisor had the ability to discuss need or lack there of for hospital admission, and the patient hadn't left the department without completing treatment. Lab Data [facility] Lab Attestation statement: I reviewed the patient's lab results. My interpretation of these results are in the [facility] Rationale portion of this note. 09/18/24 12:17 09/18/24 12:17 Labs: Lab Results 09/18/24 09/18/24 Range/Units 12:02 12:17 WBC 8.1 (4.8-10.8) X10*3/uL RBC 4.80 (4.60-5.80) X10*6/uL Hgb 14.1 (14.0-18.0) g/dl Hct 40.7 L (42.0-52.0) % MCV 84.8 (80.0-98.0) fL MCH 29.4 (27.0-33.0) pg MCHC 34.6 (31.0-36.0) g/dl RDW 13.5 (11.0-16.0) % Plt Count 342 (160-400) X10*3/uL MPV 8.9 L (9.4-12.4) fL Immature Gran % (Auto) 0.2 (0.0-0.4) % Neut % (Auto) 51.1 (45-73) % Lymph % (Auto) 33.9 (20-40) % [place] % (Auto) 6.4 (2-11) % Eos % (Auto) 7.0 H (0-4) % Baso % (Auto) 1.4 (0-2) % Lymph # (Auto) 2.7 (1.2-4.9) X10*3/uL [place] # (Auto) 0.5 (0.1-1.2) X10*3/uL Eos # (Auto) 0.6 H (0.0-0.4) X10*3/uL Baso # (Auto) 0.1 (0.0-0.2) X10*3/uL Abs Immat Gran (auto) 0.02 (0.00-0.03) X10*3/uL Absolute Neuts (auto) 4.1 (2.0-8.3) x10*3/uL Absolute Nucleated RBC 0.000 (0.0-0.012) X10*3/uL Nucleated RBC % (auto) 0.0 (0.0-0.2) /100WBC Sodium 141 (135-145) mmol/L Potassium 4.4 (3.3-5.1) mmol/L Chloride 107 (96-108) mmol/L Carbon Dioxide 21 L (22-29) mmol/L Anion Gap 17 (12-20) BUN 15 (9-16) mg/dL Creatinine 1.05 (0.5-1.4) mg/dL Estim Creat Clear Calc 91.3 Estimated GFR > 60 POC Glucose 110 (60-115) mg/dL Random Glucose 134 H (60-115) mg/dL Calcium 9.9 D (8.4-10.2) mg/dL Magnesium 2.1 (1.6-2.6) mg/dL Total Bilirubin 0.3 (0.0-1.0) mg/dL AST 17 (5-37) U/L ALT 16 (0-40) U/L Alkaline Phosphatase 98 (39-117) U/L Troponin I High Sens < 2.7 (<3.5-35.0) ng/L Total Protein 8.0 (6.5-8.0) g/dL Albumin 4.7 (3.5-5.0) g/dL TSH 1.79 (0.32-4.0) uIU/mL Influenza Type A (PCR) NEGATIVE (Negative) Influenza Type B (PCR) NEGATIVE (Negative) RSV RNA Qual (PCR) NEGATIVE (Negative) SARS-CoV-2 RNA (RT-PCR) NEGATIVE (Negative) Independent Interpretation I performed an independent interpretation of an: Plain X-Ray Interpretation: My interpretation is in agreement with the radiologist's impression of this imaging study. EXAMINATION: US TRIPLEX LOWER EXTREMITY, RIGHT CLINICAL INFORMATION: Pain evaluate for DVT COMPARISON: Ultrasound lower extremity venous Doppler right from 06/23/2019 TECHNIQUE: Color-flow triplex imaging with spectral analysis and compression. Doppler were performed on the right lower extremity. FINDINGS: Respiratory variation, normal compression and augmented flow are noted throughout the right lower extremity. The visualized common femoral vein, superficial femoral vein, profunda femoral vein, popliteal vein and midcalf peroneal and posterior tibial venous segments show no evidence of deep venous thrombosis. Contralateral common femoral vein is patent. There is no Haynes's cyst. Region of the right mid lateral side is unremarkable. US/US venous duplex LE RT IMPRESSION: No evidence of deep venous thrombosis involving the right lower extremity. Electronically signed by: Dada Persaud MD 09/04/2024 12:02 PM EDT Dictated By: Dada Persaud MD Signed By: Electronically signed by Dada Persaud MD 09/04/24 1202 Radiology Impression Discussion of test interpretation with radiology: I have reviewed the radiologist's reading. Discharge Plan Discharge Clinical Impression: Dizziness Patient Disposition: Left W/O Completing Treatment Discharge Date/Time: 09/18/24 14:48
--- NOTE | 2024-09-18 11:56 | ECG_ITS ---
Test Reason : DIZZINESS Blood Pressure : / mmHG Vent. Rate : 065 BPM Atrial Rate : 065 BPM P-R Int : 144 ms QRS Dur : 086 ms QT Int : 406 ms P-R-T Axes : 017 -17 003 degrees QTc Int : 422 ms Normal sinus rhythm Minimal voltage criteria for LVH, may be normal variant ( R in aVL ) Borderline ECG When compared with ECG of 15-OCT-2021 11:55, No significant change was found Referred By: Amparo Nowak Electronically Signed By:Malcom Leslie
[2024-09-18 11:57] VITALS: BP 141/89; PULSE 74; RESP 20; TEMP 35.4; O2SAT 95; BMI 35.0
[2024-09-18 12:23] LABS: MANUAL DIFF FLAG NO
[2024-09-18 12:25] LABS: Basophils Absolute Auto 0.1 X10*3/uL (0.0-0.2); Basophils Percent Auto 1.4 % (0-2); Eosinophils Absolute Auto 0.6 X10*3/uL (0.0-0.4); Hematocrit 40.7 % (42.0-52.0); Hemoglobin 14.1 g/dl (14.0-18.0); Imm Gran Abs Auto 0.02 X10*3/uL (0.00-0.03); Imm Gran Pct Auto 0.2 % (0.0-0.4); Lymphocytes Absolute Auto 2.7 X10*3/uL (1.2-4.9); Lymphocytes Percent Auto 33.9 % (20-40); Mean Corpuscular HGB Conc 34.6 g/dl (31.0-36.0); Mean Corpuscular Hemoglobin 29.4 pg (27.0-33.0); Mean Corpuscular Volume 84.8 fL (80.0-98.0); Mean Platelet Volume 8.9 fL (9.4-12.4); Monocytes Absolute Auto 0.5 X10*3/uL (0.1-1.2); Monocytes Percent Auto 6.4 % (2-11); Neutrophils Absolute Auto 4.1 x10*3/uL (2.0-8.3); Neutrophils Percent Auto 51.1 % (45-73); Platelet Count 342 X10*3/uL (160-400); Red Cell Distribution Width 13.5 % (11.0-16.0); White Blood Count 8.1 X10*3/uL (4.8-10.8)
[2024-09-18 12:38] LABS: Alanine Aminotransferase 16 U/L (0-40); Albumin Level 4.7 g/dL (3.5-5.0); Alkaline Phosphatase 98 U/L (39-117); Anion Gap 17 (12-20); Aspartate Amino Transferase 17 U/L (5-37); Bilirubin Total 0.3 mg/dL (0.0-1.0); Blood Urea Nitrogen 15 mg/dL (9-16); Calcium 9.9 mg/dL (8.4-10.2); Carbon Dioxide 21 mmol/L (22-29); Chloride 107 mmol/L (96-108); Creatinine Clr Calc Pharmacy 91.3; Estimated Glomerular Filt Rate > 60; Glucose Random 134 mg/dL (60-115); Magnesium 2.1 mg/dL (1.6-2.6); Potassium 4.4 mmol/L (3.3-5.1); Sodium 141 mmol/L (135-145)
[2024-09-18 12:46] LABS: Troponin-I High Sensitivity < 2.7 ng/L (<3.5-35.0)
[2024-09-18 12:59] LABS: TSH reflex Free T4 1.79 uIU/mL (0.32-4.0)
[2024-09-18 13:05] LABS: Influenza A PCR NEGATIVE (Negative); Influenza B PCR NEGATIVE (Negative); Resp Syncy Virus RNA Qual PCR NEGATIVE (Negative); SARS COV2 PCR INHOUSE NEGATIVE (Negative)
[2024-09-18 13:19] LABS: Glucose, Whole Blood 110 mg/dL (60-115)
== END 2024-09-18 14:48 | disposition left against medical advice (07) ==
LOC: HO.ED 14:20
PROVIDERS: Physician Assistant Medical; Emergency Provider Emergency Medicine; PCP Family Medicine
DX: R42 Dizziness and giddiness (principal); R73.03 Prediabetes; R94.31 Abnormal electrocardiogram [ECG] [EKG]; Z03.818 Encounter for observation for suspected exposure to other biological agents ruled out; Z79.899 Other long term (current) drug therapy
CPT/HCPCS: 0241U; 36415; 80053; 82947; 83735; 84443; 84484; 85025; 93005; 99283

== ENCOUNTER → 2024-09-18 11:56 | Outpatient (BNV) | payer MEDICAID, SELFPAY | PROVIDERS: Emergency Provider Emergency Medicine; PCP Family Medicine; Visit Provider Internal Medicine Cardiovascular Disease | DX: R42 Dizziness and giddiness (principal); R94.31 Abnormal electrocardiogram [ECG] [EKG] | CPT/HCPCS: 93010 ==

== ENCOUNTER 2024-09-28 12:40 | Outpatient (REF) | payer MEDICAID, SELFPAY ==
[2024-09-28 13:02] LABS: MANUAL DIFF FLAG NO
[2024-09-28 13:49] LABS: Basophils Absolute Auto 0.1 X10*3/uL (0.0-0.2); Basophils Percent Auto 0.9 % (0-2); Eosinophils Absolute Auto 0.4 X10*3/uL (0.0-0.4); Eosinophils Percent Auto 5.1 % (0-4); Hematocrit 39.5 % (42.0-52.0); Hemoglobin 13.1 g/dl (14.0-18.0); Imm Gran Abs Auto 0.04 X10*3/uL (0.00-0.03); Imm Gran Pct Auto 0.5 % (0.0-0.4); Lymphocytes Absolute Auto 2.7 X10*3/uL (1.2-4.9); Lymphocytes Percent Auto 36.1 % (20-40); Mean Corpuscular HGB Conc 33.2 g/dl (31.0-36.0); Mean Corpuscular Hemoglobin 28.9 pg (27.0-33.0); Mean Platelet Volume 9.3 fL (9.4-12.4); Monocytes Absolute Auto 0.6 X10*3/uL (0.1-1.2); Monocytes Percent Auto 7.7 % (2-11); Neutrophils Absolute Auto 3.7 x10*3/uL (2.0-8.3); Neutrophils Percent Auto 49.7 % (45-73); Platelet Count 340 X10*3/uL (160-400); Red Blood Count 4.54 X10*6/uL (4.60-5.80); Red Cell Distribution Width 13.6 % (11.0-16.0); White Blood Count 7.5 X10*3/uL (4.8-10.8)
[2024-09-28 13:59] LABS: Estimated Average Glucose 111 mg/dL; Hemoglobin A1C 131.0413 umol/L; Hemoglobin A1c % 5.5 % (<6.0); Total Hemoglobin (HGBA1C) 3538.3364 umol/L
[2024-09-28 14:19] LABS: Alanine Aminotransferase 20 U/L (0-40); Albumin Level 4.4 g/dL (3.5-5.0); Alkaline Phosphatase 87 U/L (39-117); Anion Gap 11 (12-20); Aspartate Amino Transferase 18 U/L (5-37); Bilirubin Total 0.3 mg/dL (0.0-1.0); Blood Urea Nitrogen 13 mg/dL (9-16); Calcium 9.6 mg/dL (8.4-10.2); Carbon Dioxide 30 mmol/L (22-29); Chloride 104 mmol/L (96-108); Cholesterol 234 mg/dL (<200); Estimated Glomerular Filt Rate > 60; Glucose Random 91 mg/dL (60-115); HDL Cholesterol 40 mg/dL (>40); LDL Cholesterol Calculated 136 mg/dL (<100); Potassium 4.8 mmol/L (3.3-5.1); Sodium 140 mmol/L (135-145); Total Protein 7.4 g/dL (6.5-8.0); Triglycerides 292 mg/dL (<150)
[2024-09-29 11:27] LABS: Free Prostate Spec Ag 0.8 ng/mL; Percent Free Prostate Spec Ag 14 % (calc) (>25); Prostate Specific Ag Total 5.9 ng/mL (< OR = 4.0)
== END 2024-09-28 12:41 | disposition home or self-care (01) ==
LOC: HO.LAB 12:40
PROVIDERS: PCP Family Medicine; Visit Provider Family Medicine
DX: R97.20 Elevated prostate specific antigen [PSA] (principal); Z79.899 Other long term (current) drug therapy
CPT/HCPCS: 36415; 80053; 80061; 83036; 84154; 85025

== ENCOUNTER 2024-10-04 09:18 | Outpatient (AMB) | payer MEDICAID, SELFPAY ==
--- NOTE | 2024-10-04 09:38 | MHC.AM.SUB ---
Intake Visit Reasons: Intake Allergies codeine [CODEINE] Allergy (Unknown, Verified 09/18/24 11:58) CONSTIPATION diazepam [From Valium] Adverse Reaction (Verified 09/04/24 11:23) Hypertension HPI HPI Intake: Details: Patient presents for intake and continuation of treatment of OUD Currently on methadone 150mg daily Less than one year on methadone Reports he does not like methadone --constipation, groggy Would like to switch back to buprenorphine mono product Suboxone makes him vomit When prescribed Subutex he was taking it for a few months He states he remembers feeling best on this medication He acknowledges that he has not had much time in recovery in the community Numerous incarcerations 10-12 detox admissions 2 [address] (self referred) Alcohol -last drink in July -reports extensive withdrawal hx, unclear if seizures ever occurred Social: -recently moved into a room in [place] -previously homeless -identifies his cousin as a support -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 Kingsley Review of Systems Const Reports as per HPI and Reports no additional complaints Physical Exam Const General: cooperative, healthy appearing and well groomed Nutritional Appearance: average body habitus Orientation/consciousness: patient oriented x3 Limitations: no limitations Neuro General: patient oriented x3 Psych Appearance: well kempt Speech and movement: Clear speech present Affect: normal affect and Animated affect present (at times ) Attitude: cooperative Thought process: Circumstantial thought process present Thought content: Normal thought content present Insight: Fair insight present (Psych) Judgement: Fair judgement present (Psych) Assessment & Plan Assessment & Plan (1) Opioid use disorder, severe, dependence: Code(s): F11.20 - Opioid dependence, uncomplicated Category: Medical Plan: plan to transition to buprenorphine mono product from methadone continue methadone for now and at next visit plan for transition --using tabs TIAGO signed to obtain lab work from PCP office (2) Alcohol use disorder, severe, dependence: Code(s): F10.20 - Alcohol dependence, uncomplicated Category: Medical Plan: relapse prevention discussion follow up 3 weeks [facility] Medical History Substance abuse HTN (hypertension) Alcoholism Social History Alcohol intake: current Patient Tobacco Use Status: Current someday Tobacco user Substance Use Type: Crack/Cocaine MAT Intake Nursing Intake Reason for visit: would like to switch from methadone to suboxone Are you currently using?: Yes What are you taking?: heroine Referral Source: [facility] Details: Patient is not forthecoming regarding his drug use, when asking him health questions he continued to give me his phone to read his my chart history. Substance Abuse History Substance Abuse History (includes route, frequency and quantity): Heroin, Methadone and Alcohol Age of first use: didn't discuss Details: Patient initially states I drink thats it when questioned why he was on methadone he said Oh I shoot coke, and then because they messed me up with meds I had to use heroine . Social History Children: 4 Current mode of transportation?: uses pt1 Where are you currently residing?: Rents a room in [place] Drug Use Have you ever shared needles?: Yes Have you ever belonged to a needle exchange program?: Yes Do you buy needles at a pharmacy?: Yes Have you ever overdosed?: Yes Number of lifetime overdoses: 1 Have you ever been hospitalized for an overdose?: Yes Was Naloxone administered?: Yes Recovery History Have you had any periods of recovery?: No
== END 2024-10-04 10:19 | disposition home or self-care (01) ==
PROVIDERS: PCP Family Medicine; Visit Provider Nurse Practitioner Psychiatric/Mental Health
DX: F11.20 Opioid dependence, uncomplicated (principal); F10.20 Alcohol dependence, uncomplicated
CPT/HCPCS: 99204

== ENCOUNTER → 2024-10-04 09:18 | Outpatient (BNVA) | payer MEDICAID, SELFPAY | PROVIDERS: PCP Family Medicine; Visit Provider Nurse Practitioner Psychiatric/Mental Health | DX: F11.20 Opioid dependence, uncomplicated (principal); F10.20 Alcohol dependence, uncomplicated; Z51.81 Encounter for therapeutic drug level monitoring | CPT/HCPCS: 99212 ==

== ENCOUNTER 2024-10-14 08:05 | Emergency (ER) | payer MEDICAID, SELFPAY ==
--- NOTE | ~2024-10-14 | CT_ITS ---
EXAMINATION: CT FACIAL BONES WITH CONTRAST CLINICAL INFORMATION: Dental abscess on the right. COMPARISON: None available. TECHNIQUE: Contiguous axial images through the maxillofacial bones using 3 mm collimation following the IV contrast administration 85 cc Omnipaque 350 strength without reported immediate complications. Soft tissue and bone algorithm. Sagittal and coronal reformatted images acquired. This CT examination was performed using dose optimization techniques as appropriate, variously including the following: *Automated exposure control *Adjustment of mA and/or kV according to patient size (this includes techniques or standardized protocols for targeted exams where dose is matched to indication/reason for exam; i.e. extremities or head) *Use of iterative reconstruction technique DLP: 447 mGy-cm FINDINGS: Periapical hypodensity at the maxillary alveolar ridge of the right second molar. There is a 10 mm x 8 mm fluid collection along the buccal margin of the maxillary right second molar. I do not see gross lingual extension. Polypoid mucosal thickening, maxillary sinuses. Old traumatic deformities in the nasal bones. [employer] spaces, parapharyngeal spaces and carotid spaces demonstrate no gross mass or fluid collection. There is thickening of the lingual epiglottic midline ligament. Tympanic cavities and mastoid cells are aerated. No fluid collections masses or hematoma in the intraconal or extraconal compartments of the orbits. Salivary glands demonstrate no gross masses or calcifications. Prominent lymph nodes likely reactive. CT/CT facial bones w IV con IMPRESSION: Periapical abscess with a 10 x 8 mm buccal margin extension centered at the maxillary right second molar. Electronically signed by: Emeka Robison MD 10/14/2024 12:00 PM [facility]
[2024-10-14 08:06] VITALS: BP 164/98; PULSE 69; RESP 18; TEMP 36; O2SAT 100; BMI 35.6
--- NOTE | 2024-10-14 08:35 | ED.DENTAL ---
HPI - Dental/Oral General Chief complaint: Dental/Oral Stated complaint: Dental pain Time Seen by Provider: 10/14/24 08:35 Source: patient Mode of arrival: ambulatory Limitations: no limitations History of Present Illness ED Provider: Tate FOURNIER Narrative: Patient is a 49-year-old male presenting to the emergency department with complaint of severe dental pain since yesterday. Reports that he had a root canal with a crown 2 months ago, ever since has had sensitivity in that area. This past week began using nicotine gum to quit smoking, and pain has increased. Overnight pain was so severe he almost called 911. Took Tylenol and ibuprofen without relief. This morning he woke with right sided facial swelling. Denies fevers, discharge/drainage. MD Complaint: tooth pain Location: Tooth # Teeth map: 1. buccal gingival erythema and tenderness, no fluctuance, crown intact Onset (ago): day(s) Duration: worsening Severity: severe Relieving factors: nothing Exacerbating factors: chewing Treatment prior to arrival: oral analgesic Related Data Previous Rx's ?Medication ?Instructions ?Recorded amoxicillin 875 mg-potassium 1 tab PO BID #20 tabs 10/14/24 clavulanate 125 mg tablet ibuprofen 600 mg tablet 600 mg PO Q6H PRN pain #20 tabs 10/14/24 Allergies Allergy/AdvReac Type Severity Reaction Status Date / Time codeine [CODEINE] Allergy Unknown CONSTIPATIO Verified 10/14/24 08:09 N diazepam [From Valium] AdvReac Hypertensio Verified 10/14/24 08:09 n Review of Systems Review of Systems: As per HPI. Yes all other systems are reviewed and are negative Constitutional: Constitutional: Reports as per HPI [facility] Past Medical History Medical History Substance abuse HTN (hypertension) Alcoholism Social History Social History Alcohol intake: current Patient Tobacco Use Status: Current someday Tobacco user Substance Use Type: Crack/Cocaine Advance Directives: No Advance Directives Information Provided: Yes Physical Exam Vital Signs: Vital Signs: Last Vital Signs Temp 98.0 F 10/14/24 11:19 Pulse 53 10/14/24 11:19 Resp 13 10/14/24 11:19 BP 149/73 H 10/14/24 11:19 Pulse Ox 98 10/14/24 11:19 O2 Del Method Room Air 10/14/24 11:19 BMI result Body Mass Index 35.6 Vital signs have been reviewed and appear to be correct. Blood pressure elevated. Heart rate normal. Respiratory rate normal. Temperature normal. Oxygen saturation normal. Const: General: cooperative, healthy appearing and no acute distress Orientation/consciousness: oriented to person, oriented to place, oriented to time and patient oriented x3 Limitations: no limitations HEENT: Head: Yes normocephalic and Yes atraumatic Ears: external ears normal General nose exam: Normal external nose present Face and sinus: No face symmetric (right sided swelling to cheek) and Yes sinus tenderness (maxillary) Mouth: Normal oral and palatal mucosa present, lip normal, tongue normal, oropharynx normal and moist mucous membranes Teeth and gingiva: dentition normal Teeth image: 1. buccal gingival erythema and tenderness, no fluctuance, crown intact Throat: Yes uvula midline and No uvular edema Eyes: Pupils: Equal, round and reactive pupils present Neck: Neck: Yes normal visual inspection, Yes no lymphadenopathy and Yes supple Resp: Effort & Inspection: normal respiratory effort and able to speak in complete sentences Auscultation: clear to auscultation bilaterally Cardio: Rate: regular rate Rhythm: regular rhythm Heart sounds: S1 normal heart sound present and S2 normal heart sound present GI: Palpation (GI): Soft to palpation and nontender Auscultation: normoactive bowel sounds : General: Yes no CVA tenderness Back/Spine/Pelvis: Back: no CVA tenderness Skin: General skin exam: elasticity normal and turgor normal Neuro: General: oriented to person, oriented to place, oriented to time, patient oriented x3, moves all extremities, no focal motor deficits and CN's II-XI intact bilaterally Cranial nerves: Yes Equal, round and reactive pupils present Cognition (Neuro): normal cognition Extrem: General: Yes full ROM, Yes no pedal edema and Yes no calf tenderness Psych: Mental Status: mental status grossly normal Affect: normal affect Thought process: Normal thought process present Medications Administered Discontinued Medications Generic Name Dose Route Start Last Admin Trade Name Freq PRN Reason Stop Dose Admin Iohexol 85 ml 10/14/24 09:54 10/14/24 09:54 Iohexol 350 Mg/Ml 75 Ml Infus..Btl IV 10/14/24 09:55 85 ml ONCE ONE Administration Ketorolac Tromethamine 30 mg 10/14/24 08:39 10/14/24 09:10 Ketorolac Tromethamine 30 Mg/Ml Vial IM 10/14/24 08:40 30 mg ONCE ONE Administration Medical Decision Making Medical Decision Making [facility] Narrative: Patient is a 49-year-old male presenting to the emergency department with complaint of severe dental pain since yesterday. On exam patient is awake, A+Ox3, BP elevated likely due to pain, VS otherwise WNL, afebrile, normal neurological exam without focal deficits, physical exam findings as above. Given reported symptoms and physical exam findings, initial differential includes dental infection, dental abscess. Do not suspect Jose's angina. Labs notable for no leukocytosis. CT notable for periapical abscess. My interpretation is in agreement with the radiologist's interpretation. Upon reassessment, abscess now palpable. Topical lidocaine applied. Abscess drained as per procedure note, patient tolerated well. Will discharge on Augmentin. Instructed patient to schedule follow up appointment with dentist as soon as possible. Return precautions discussed. Patient verbalized understanding of and agreement with plan. Differential Diagnosis Differential Diagnoses: The differential diagnosis associated with the presentation includes As per [facility] Admission/Observation Consideration of admission/observation: Escalation of care including admission/observation considered Patient would have been admitted to the hospital had their work up had any findings where hospital admission was appropriate and their clinical presentation warranted hospital admission. Lab Data [facility] Lab Attestation statement: I reviewed the patient's lab results. As per [facility] 10/14/24 09:15 10/14/24 09:15 Labs: Lab Results 10/14/24 Range/Units 09:15 WBC 10.2 (4.8-10.8) X10*3/uL RBC 4.30 L (4.60-5.80) X10*6/uL Hgb 12.7 L (14.0-18.0) g/dl Hct 37.1 L (42.0-52.0) % MCV 86.3 (80.0-98.0) fL MCH 29.5 (27.0-33.0) pg MCHC 34.2 (31.0-36.0) g/dl RDW 13.3 (11.0-16.0) % Plt Count 309 (160-400) X10*3/uL MPV 8.9 L (9.4-12.4) fL Immature Gran % (Auto) 0.5 H (0.0-0.4) % Neut % (Auto) 70.9 (45-73) % Lymph % (Auto) 17.2 L (20-40) % [place] % (Auto) 7.3 (2-11) % Eos % (Auto) 3.2 (0-4) % Baso % (Auto) 0.9 (0-2) % Lymph # (Auto) 1.8 (1.2-4.9) X10*3/uL [place] # (Auto) 0.8 (0.1-1.2) X10*3/uL Eos # (Auto) 0.3 (0.0-0.4) X10*3/uL Baso # (Auto) 0.1 (0.0-0.2) X10*3/uL Abs Immat Gran (auto) 0.05 H (0.00-0.03) X10*3/uL Absolute Neuts (auto) 7.3 (2.0-8.3) x10*3/uL Absolute Nucleated RBC 0.000 (0.0-0.012) X10*3/uL Nucleated RBC % (auto) 0.0 (0.0-0.2) /100WBC Sodium 141 (135-145) mmol/L Potassium 3.9 (3.3-5.1) mmol/L Chloride 109 H (96-108) mmol/L Carbon Dioxide 27 (22-29) mmol/L Anion Gap 9 L (12-20) BUN 9 (9-16) mg/dL Creatinine 0.75 (0.5-1.4) mg/dL Estim Creat Clear Calc 129.0 Estimated GFR > 60 Random Glucose 124 H (60-115) mg/dL Calcium 9.6 (8.4-10.2) mg/dL Total Bilirubin 0.3 (0.0-1.0) mg/dL AST 18 (5-37) U/L ALT 21 (0-40) U/L Alkaline Phosphatase 81 (39-117) U/L Total Protein 7.0 (6.5-8.0) g/dL Albumin 4.0 (3.5-5.0) g/dL Independent Interpretation I performed an independent interpretation of an: CT Scan Interpretation: CT notable for periapical abscess. Radiology Impression Discussion of test interpretation with radiology: I have reviewed the radiologist's reading. Radiologist Impression: CT/CT facial bones w IV con IMPRESSION: Periapical abscess with a 10 x 8 mm buccal margin extension centered at the maxillary right second molar. External Record Review External record reviewed: Inpatient record, Office record and Outpatient record Prescription Management I considered prescription management with: Pain Medication and Antibiotic Procedures Abscess I/D Site: oral (periapical right upper) Side (if applicable): right Local Anesthetic: other anesthetic (topical lidocaine) Technique: needle aspiration Amount of fluid expressed (mL): 1 Discharge Plan Discharge Clinical Impression: Dental abscess Patient Disposition: Home, Self-Care Instructions: Dental Abscess (ED) Additional Instructions: You were evaluated in the emergency department today for complaint of dental pain. You are being treated for a dental abscess/infection with antibiotics. Please complete the full course of antibiotics as prescribed even if your symptoms improve. IT IS IMPORTANT THAT YOU FOLLOW UP WITH YOUR DENTIST. We recommend that you take 600 mg of ibuprofen or 650 mg Tylenol every 6 hours as needed for pain. If necessary, you can alternate these medications every 3 hours. For example, at 9:00 a.m. take Tylenol, then at noon take ibuprofen, then at 3:00 p.m. take Tylenol, etc.. Return to the emergency department if you develop worsening pain, swelling, difficulty swallowing, difficulty breathing, fever, or any other concerning symptoms. Prescriptions: New amoxicillin-pot clavulanate 875-125 mg tablet 1 tab PO BID Qty: 20 0RF ibuprofen 600 mg tablet 600 mg PO Q6H PRN (Reason: pain) Qty: 20 0RF Print Language: Ivorian
[2024-10-14] MEDS: Ketorolac Tromethamine 30 MG/ML VIAL IM (09:10)
[2024-10-14 09:24] LABS: MANUAL DIFF FLAG NO
[2024-10-14 09:27] LABS: Basophils Absolute Auto 0.1 X10*3/uL (0.0-0.2); Basophils Percent Auto 0.9 % (0-2); Eosinophils Absolute Auto 0.3 X10*3/uL (0.0-0.4); Eosinophils Percent Auto 3.2 % (0-4); Hematocrit 37.1 % (42.0-52.0); Hemoglobin 12.7 g/dl (14.0-18.0); Imm Gran Abs Auto 0.05 X10*3/uL (0.00-0.03); Imm Gran Pct Auto 0.5 % (0.0-0.4); Lymphocytes Absolute Auto 1.8 X10*3/uL (1.2-4.9); Lymphocytes Percent Auto 17.2 % (20-40); Mean Corpuscular HGB Conc 34.2 g/dl (31.0-36.0); Mean Corpuscular Hemoglobin 29.5 pg (27.0-33.0); Mean Corpuscular Volume 86.3 fL (80.0-98.0); Mean Platelet Volume 8.9 fL (9.4-12.4); Monocytes Absolute Auto 0.8 X10*3/uL (0.1-1.2); Monocytes Percent Auto 7.3 % (2-11); Neutrophils Absolute Auto 7.3 x10*3/uL (2.0-8.3); Neutrophils Percent Auto 70.9 % (45-73); Platelet Count 309 X10*3/uL (160-400); Red Cell Distribution Width 13.3 % (11.0-16.0); White Blood Count 10.2 X10*3/uL (4.8-10.8)
[2024-10-14 09:43] LABS: Alanine Aminotransferase 21 U/L (0-40); Alkaline Phosphatase 81 U/L (39-117); Anion Gap 9 (12-20); Aspartate Amino Transferase 18 U/L (5-37); Bilirubin Total 0.3 mg/dL (0.0-1.0); Blood Urea Nitrogen 9 mg/dL (9-16); Calcium 9.6 mg/dL (8.4-10.2); Carbon Dioxide 27 mmol/L (22-29); Chloride 109 mmol/L (96-108); Estimated Glomerular Filt Rate > 60; Glucose Random 124 mg/dL (60-115); Potassium 3.9 mmol/L (3.3-5.1); Sodium 141 mmol/L (135-145)
[2024-10-14] MEDS: iohexoL 350 MG/ML 75 ML INFUS..BTL 85 ML IV (09:54)
[2024-10-14 11:19] VITALS: BP 149/73; PULSE 53; RESP 13; TEMP 36.7; O2SAT 98
[2024-10-14 13:52] VITALS: BP 149/73; PULSE 53; RESP 13; TEMP 36.7; O2SAT 98
== END 2024-10-14 13:53 | disposition home or self-care (01) ==
PROVIDERS: Registered Nurse Emergency; Emergency Provider Emergency Medicine Emergency Medical Services; PCP Family Medicine
DX: K04.7 Periapical abscess without sinus (principal); K08.89 Other specified disorders of teeth and supporting structures; F19.10 Other psychoactive substance abuse, uncomplicated; F17.210 Nicotine dependence, cigarettes, uncomplicated
CPT/HCPCS: 36415; 41800; 70487; 80053; 85025; 96372; 99283; 99284; J1885; Q9967

== ENCOUNTER → 2024-10-14 08:38 | Outpatient (BNV) | payer MEDICAID, SELFPAY | PROVIDERS: Emergency Provider Emergency Medicine Emergency Medical Services; PCP Family Medicine; Visit Provider Radiology Diagnostic Radiology | DX: K04.7 Periapical abscess without sinus (principal) | CPT/HCPCS: 70487 ==

== ENCOUNTER 2024-10-28 09:01 | Outpatient (AMB) | payer MEDICAID, SELFPAY ==
--- NOTE | 2024-10-28 09:28 | A.OFFVISCC_ITS ---
Intake Visit Reasons: MAT Office Allergies codeine [CODEINE] Allergy (Unknown, Verified 10/14/24 08:09) CONSTIPATION diazepam [From Valium] Adverse Reaction (Verified 10/14/24 08:09) Hypertension HPI HPI MAT Office: Details: Patient presents for follow up for OUD Plan to transition to buprenorphine from Suboxone [facility] -aware of transition plan Reviewed transition plan verbally and in writing Discussed what to expect, how to address side effects and slowing down cross taper if needed Records from PCP reviewed medication list to be updated Review of Systems Const Reports as per HPI and Reports no additional complaints Physical Exam Const General: cooperative, healthy appearing, no acute distress and well groomed Orientation/consciousness: patient oriented x3 Limitations: no limitations Neuro General: patient oriented x3 Psych Appearance: well kempt Speech and movement: Normal speech and movement present Affect: normal affect Attitude: cooperative Thought process: Normal thought process present Thought content: Normal thought content present Insight: Good insight present (Psych) Judgement: Good judgement present (Psych) Assessment & Plan Assessment & Plan (1) Opioid use disorder, severe, dependence: Code(s): F11.20 - Opioid dependence, uncomplicated Category: Medical Plan: * will start cross titration once buprenorphine picked up * RN to check in next week * follow up with t/w 10 days (2) Alcohol use disorder, severe, dependence: Code(s): F10.20 - Alcohol dependence, uncomplicated Category: Medical Plan: * relapse prevention discussion Medications: New buprenorphine HCl 8 mg sublingual TID 21 tabs 0RF buprenorphine HCl 2 mg sublingual BID 8 tabs 0RF PFSH Medical History Substance abuse HTN (hypertension) Alcoholism Social History Alcohol intake: current Patient Tobacco Use Status: Current someday Tobacco user Substance Use Type: Crack/Cocaine
== END 2024-10-28 10:11 | disposition home or self-care (01) ==
PROVIDERS: PCP Family Medicine; Visit Provider Nurse Practitioner Psychiatric/Mental Health
DX: F11.20 Opioid dependence, uncomplicated (principal); F10.20 Alcohol dependence, uncomplicated
CPT/HCPCS: 99214

== ENCOUNTER → 2024-10-28 09:01 | Outpatient (BNVA) | payer MEDICAID, SELFPAY | PROVIDERS: PCP Family Medicine; Visit Provider Nurse Practitioner Psychiatric/Mental Health | DX: F11.20 Opioid dependence, uncomplicated (principal); F10.20 Alcohol dependence, uncomplicated; Z51.81 Encounter for therapeutic drug level monitoring | CPT/HCPCS: 99212 ==

== ENCOUNTER → 2024-11-03 12:59 | Outpatient (BNVA) | payer MEDICAID, SELFPAY | PROVIDERS: PCP Family Medicine ==

== ENCOUNTER 2024-11-07 12:52 | Outpatient (AMB) | payer MEDICAID, SELFPAY ==
--- NOTE | 2024-11-07 13:11 | MHC.AM.SUB ---
Intake Visit Reasons: MAT Office Allergies codeine [CODEINE] Allergy (Unknown, Verified 10/14/24 08:09) CONSTIPATION diazepam [From Valium] Adverse Reaction (Verified 10/14/24 08:09) Hypertension HPI HPI MAT Office: Details: Patient presents for follow up Taking 8mgBID Should stop methadone now --informed patient of that Denies any side effects Tolerating transition due for refill on 11/10 Applying for work Review of Systems Const Reports as per HPI and Reports no additional complaints Physical Exam Const General: cooperative, healthy appearing, no acute distress and well groomed Orientation/consciousness: patient oriented x3 Limitations: no limitations Neuro General: patient oriented x3 Psych Appearance: well kempt Speech and movement: Normal speech and movement present Affect: normal affect Attitude: cooperative Thought process: Normal thought process present Thought content: Normal thought content present Insight: Good insight present (Psych) Judgement: Good judgement present (Psych) Assessment & Plan Assessment & Plan (1) Opioid use disorder, severe, dependence: Code(s): F11.20 - Opioid dependence, uncomplicated Category: Medical Plan: should be completely off of methadone buprenorphine 8mg TID follow up one week (2) Alcohol use disorder, severe, dependence: Code(s): F10.20 - Alcohol dependence, uncomplicated Category: Medical Plan: relapse prevention discussion [facility] Medical History Substance abuse HTN (hypertension) Alcoholism Social History Alcohol intake: current Patient Tobacco Use Status: Current someday Tobacco user Substance Use Type: Crack/Cocaine
== END 2024-11-07 13:42 | disposition home or self-care (01) ==
PROVIDERS: PCP Family Medicine; Visit Provider Nurse Practitioner Psychiatric/Mental Health
DX: F11.20 Opioid dependence, uncomplicated (principal); F10.20 Alcohol dependence, uncomplicated
CPT/HCPCS: 99214

== ENCOUNTER → 2024-11-07 12:52 | Outpatient (BNVA) | payer MEDICAID, SELFPAY | PROVIDERS: PCP Family Medicine; Visit Provider Nurse Practitioner Psychiatric/Mental Health | DX: F11.20 Opioid dependence, uncomplicated (principal); F10.20 Alcohol dependence, uncomplicated | CPT/HCPCS: 99212 ==

== ENCOUNTER 2024-11-16 10:31 | Outpatient (AMB) | payer MEDICAID, SELFPAY ==
--- NOTE | 2024-11-16 10:51 | A.OFFVISCC_ITS ---
Intake Visit Reasons: MAT Office Allergies codeine [CODEINE] Allergy (Unknown, Verified 10/14/24 08:09) CONSTIPATION diazepam [From Valium] Adverse Reaction (Verified 10/14/24 08:09) Hypertension HPI HPI MAT Office: Details: Patient presents for follow up Currently taking 8mg TID nausea in AM --subsided body aches in the AM and late in the day sleeping okay--some sweating, but not awful nightmares related to drinking taking 7am 1pm and 7pm Review of Systems Const Reports as per HPI Physical Exam Const General: cooperative, healthy appearing, anxious and well groomed Nutritional Appearance: average body habitus Orientation/consciousness: patient oriented x3 Limitations: no limitations Neuro General: patient oriented x3 Psych Appearance: well kempt Speech and movement: Normal speech and movement present Affect: normal affect and Anxious affect present Attitude: cooperative Thought process: Normal thought process present Thought content: Normal thought content present Insight: Good insight present (Psych) Judgement: Good judgement present (Psych) PFSH Medical History Substance abuse HTN (hypertension) Alcoholism Social History Alcohol intake: current Patient Tobacco Use Status: Current someday Tobacco user Substance Use Type: Crack/Cocaine Assessment & Plan Assessment & Plan (1) Opioid use disorder, severe, dependence: Code(s): F11.20 - Opioid dependence, uncomplicated Category: Medical Plan: * continue suboxone at current dose * relapse prevention discussion * follow up one week (2) Alcohol use disorder, severe, dependence: Code(s): F10.20 - Alcohol dependence, uncomplicated Category: Medical Plan: * relapse prevention discussion Medications: Refilled buprenorphine HCl 8 mg sublingual TID 21 tabs 0RF
== END 2024-11-16 11:27 | disposition home or self-care (01) ==
PROVIDERS: PCP Family Medicine; Visit Provider Nurse Practitioner Psychiatric/Mental Health
DX: F11.20 Opioid dependence, uncomplicated (principal); F10.20 Alcohol dependence, uncomplicated
CPT/HCPCS: 99214

== ENCOUNTER → 2024-11-16 10:31 | Outpatient (BNVA) | payer MEDICAID, SELFPAY | PROVIDERS: PCP Family Medicine; Visit Provider Nurse Practitioner Psychiatric/Mental Health | DX: F11.20 Opioid dependence, uncomplicated (principal); F10.20 Alcohol dependence, uncomplicated | CPT/HCPCS: 99212 ==

== ENCOUNTER 2024-11-23 09:59 | Outpatient (AMB) | payer MEDICAID, SELFPAY ==
--- NOTE | 2024-11-23 10:41 | A.OFFVISCC_ITS ---
Intake Visit Reasons: MAT Office Allergies codeine [CODEINE] Allergy (Unknown, Verified 10/14/24 08:09) CONSTIPATION diazepam [From Valium] Adverse Reaction (Verified 10/14/24 08:09) Hypertension HPI HPI MAT Office: Details: Patient presents for OUD treatment follow up Currently prescribed Suboxone 24mg daily Taking 16mg in AM and 8mg later in the day Reporting increase in cravings Has been trying to keep busy --working, meetings discussed increasing dose patient agreeable--unclear if insurance will cover 4x/day, patient aware of this Review of Systems Const Reports as per HPI Physical Exam Const General: cooperative, healthy appearing, anxious and well groomed Nutritional Appearance: average body habitus Orientation/consciousness: patient oriented x3 Limitations: no limitations Neuro General: patient oriented x3 Psych Appearance: well kempt Speech and movement: Normal speech and movement present Affect: normal affect and Anxious affect present Attitude: cooperative Thought process: Normal thought process present Thought content: Normal thought content present Insight: Good insight present (Psych) Judgement: Good judgement present (Psych) [facility] Medical History Substance abuse HTN (hypertension) Alcoholism Social History Alcohol intake: current Patient Tobacco Use Status: Current someday Tobacco user Substance Use Type: Crack/Cocaine Assessment & Plan Assessment & Plan (1) Opioid use disorder, severe, dependence: Code(s): F11.20 - Opioid dependence, uncomplicated Category: Medical Plan: * increase suboxone to 8mg QID--if approved by insurance * follow up one week (2) Alcohol use disorder, severe, dependence: Code(s): F10.20 - Alcohol dependence, uncomplicated Category: Medical Plan: * relapse prevention discussion * continue AA meetings Medications: New polyethylene glycol 3350 17 grams PO DAILY PRN 238 grams 0RF constipation Changed From buprenorphine HCl 8 mg sublingual TID 21 tabs 0RF To buprenorphine HCl 8 mg sublingual QID 28 tabs 0RF Discontinued amoxicillin-pot clavulanate 875-125 mg Discontinued Reason: Patient Completed Course 1 tab PO BID 20 tabs 0RF buprenorphine HCl Discontinued Reason: Doctor's Order 2 mg sublingual BID 8 tabs 0RF
== END 2024-11-23 10:56 | disposition home or self-care (01) ==
PROVIDERS: PCP Family Medicine; Visit Provider Nurse Practitioner Psychiatric/Mental Health
DX: F11.20 Opioid dependence, uncomplicated (principal); F10.20 Alcohol dependence, uncomplicated
CPT/HCPCS: 99214

== ENCOUNTER → 2024-11-23 09:59 | Outpatient (BNVA) | payer MEDICAID, SELFPAY | PROVIDERS: PCP Family Medicine; Visit Provider Nurse Practitioner Psychiatric/Mental Health | DX: F11.20 Opioid dependence, uncomplicated (principal); F10.20 Alcohol dependence, uncomplicated; Z51.81 Encounter for therapeutic drug level monitoring | CPT/HCPCS: 99212 ==

== ENCOUNTER 2024-11-29 07:36 | Outpatient (REF) | payer MEDICAID, SELFPAY ==
--- NOTE | ~2024-11-29 | XR_ITS ---
EXAMINATION: XR KNEE 4 OR MORE VIEWS RIGHT HISTORY: ON GOING HIP AND KNEE PAIN COMPARISON: There are no prior studies available for comparison. FINDINGS: Four views of the right knee are submitted. Osseous mineralization is normal. There is no fracture or dislocation. The joint spaces are preserved. The soft tissues are unremarkable. XR/XR knee RT 4V IMPRESSION: Unremarkable examination of the right knee. Electronically signed by: Fuentes Dewitt MD 11/29/2024 01:26 PM [facility]
--- NOTE | ~2024-11-29 | XR_ITS ---
EXAMINATION: XR HIP 2 OR MORE VIEWS RIGHT HISTORY: ON GOING HIP PAIN COMPARISON: There are no prior studies for comparison. FINDINGS: Two views of the right hip are submitted. Osseous mineralization is normal. There is no fracture or dislocation. The joint space is maintained. The soft tissues are unremarkable. XR/XR hip RT min 2V IMPRESSION: Unremarkable examination of the right hip. Electronically signed by: Fuentes Dewitt MD 11/29/2024 01:26 PM [facility]
== END 2024-11-29 07:37 | disposition home or self-care (01) ==
LOC: HO.XRAY 07:36
PROVIDERS: PCP Family Medicine; Visit Provider Family Medicine
DX: M25.551 Pain in right hip (principal); M24.851 Other specific joint derangements of right hip, not elsewhere classified
CPT/HCPCS: 73502; 73564

== ENCOUNTER → 2024-11-29 07:41 | Outpatient (BNV) | payer MEDICAID, SELFPAY | PROVIDERS: PCP Family Medicine; Visit Provider Radiology Diagnostic Radiology | DX: M25.561 Pain in right knee (principal); M25.551 Pain in right hip | CPT/HCPCS: 73502; 73564 ==

== ENCOUNTER 2024-11-30 10:29 | Outpatient (AMB) | payer MEDICAID, SELFPAY ==
--- NOTE | 2024-11-30 10:42 | MHC.AM.SUB ---
Intake Visit Reasons: MAT Office Allergies codeine [CODEINE] Allergy (Unknown, Verified 10/14/24 08:09) CONSTIPATION diazepam [From Valium] Adverse Reaction (Verified 10/14/24 08:09) Hypertension HPI HPI MAT Office: Details: Patient presents for XOCHILT treatment follow up Dose increased last week to 8mg QID finds that it was helpful with cravings Received a stay away order from his residence Slept on the floor of [employer] last evening send rx to [facility] pharmacy follow up 2 weeks Review of Systems Const Reports as per HPI and Reports difficulty sleeping Physical Exam Const General: cooperative and well groomed Orientation/consciousness: patient oriented x3 Limitations: no limitations Neuro General: patient oriented x3 Psych Appearance: well kempt Speech and movement: Normal speech and movement present Affect: Blunted affect present Attitude: cooperative Thought process: Circumstantial thought process present Thought content: Normal thought content present Insight: Good insight present (Psych) Judgement: Good judgement present (Psych) PFSH Medical History Substance abuse HTN (hypertension) Alcoholism Social History Alcohol intake: current Patient Tobacco Use Status: Current someday Tobacco user Substance Use Type: Crack/Cocaine Assessment & Plan Assessment & Plan (1) Opioid use disorder, severe, dependence: Code(s): F11.20 - Opioid dependence, uncomplicated Category: Medical Plan: continue suboxone at current dose follow up 2 weeks Medications: Refilled buprenorphine HCl 8 mg sublingual QID 56 tabs 0RF
--- OUTSIDE RECORDS SUMMARY | 2024-11-30 11:38 | XMS_ITS | Clinical Summary ---
Author Organization [employer] Address [address] [place] [address] [address] [place] [address] Care Team Providers Care Human Performance Consultant Name Role Phone Roberta Wilde MD Primary Care Provider [phone] Allergies Active Allergy Reactions Criticality Noted Date Comments Codeine 06/01/2021 Other reaction(s): constipation Medications * This document contains information received from the source organization and may not represent a complete record from that organization. nicotine polacrilex (Nicorette) 4 MG gumIndications: Cigarette nicotine dependence without complication Chew 1 each (4 mg) if needed for smoking cessation. 100 each 11 09/07/20 24 Active traZODone (Desyrel) 50 MG tabletIndicatio ns:Antisocial personality disorder (CMS/HCC) Take 1 tablet (50 mg) by mouth if needed at bedtime for sleep. 90 tablet 10/10/20 24 025 Active sertraline (Zoloft) 100 MG tabletIndicatio ns:Antisocial personality disorder (CMS/HCC) Take 1 tablet (100 mg) by mouth Once per day. 90 tablet 10/10/20 24 025 Active propranolol (Inderal) 40 MG tabletIndicatio ns:Antisocial personality disorder (CMS/HCC),Impul se control disorder Take 1 tablet (40 mg) by mouth 2 times daily. 180 tablet 10/10/20 24 025 Active gabapentin (Neurontin) 600 MG tabletIndicatio ns:Chronic midline low back pain with bilateral sciatica,Alcoho l use disorder, severe, in early remission (CMS/HCC) Take 1 tablet (600 mg) by mouth 3 times daily. 90 tablet 10/10/20 24 Active cetirizine (ZyrTEC) 10 MG tabletIndicatio ns:Allergic rhinitis, unspecified seasonality, unspecified trigger Take 1 tablet (10 mg) by mouth if needed each day for allergies. 90 tablet 10/10/20 24 025 Active carBAMazepine (TEGretol) 200 MG tabletIndicatio ns:Antisocial personality disorder (CMS/HCC) Take 1 tablet (200 mg) by mouth 2 times daily. 180 tablet 10/10/20 24 025 Active ARIPiprazole (Abilify) 5 MG tabletIndicatio ns:Antisocial personality disorder (CMS/HCC) Take 1 tablet (5 mg) by mouth Once per day. 90 tablet 10/10/20 24 025 Active tiZANidine (Zanaflex) 4 MG tabletIndicatio ns:Chronic midline low back pain with bilateral sciatica Take 1 tablet (4 mg) by mouth 3 times daily for 20 days. 60 tablet 10/12/20 24 Active fluticasone (Flonase) 50 MCG/ACT nasal sprayIndication s:Allergic rhinitis, unspecified seasonality, unspecified trigger Administer 2 sprays into each nostril Once per day. 16 g 11 10/12/20 24 025 Active lidocaine (Lidoderm) 5 % patchIndication s:Chronic midline low back pain with bilateral sciatica Apply 1 patch topically Once per day. 30 patch 2 10/12/20 24 Active albuterol (Ventolin HFA) 108 (90 Base) MCG/ACT inhalerIndicati ons:Mild intermittent asthma, unspecified whether complicated Inhale 2 puffs every 4 (four) hours if needed for wheezing or shortness of breath. 8 g 5 10/12/20 24 025 Active busPIRone (Buspar) 30 MG tabletIndicatio ns:Antisocial personality disorder (CMS/HCC) Take 1 tablet (30 mg) by mouth 2 times daily. 180 tablet 10/26/20 24 025 Active methylphenidate (Ritalin) 10 MG tabletIndicatio ns:Antisocial personality disorder (CMS/HCC),ADHD, impulsive type,Impulse control disorder Take 1 tablet (10 mg) by mouth at noon and 1 tablet (10 mg) in the evening. Do all this for 28 days. 56 tablet 10/26/20 24 Active tamsulosin (Flomax) 0.4 MG 24 hr capsuleIndicati ons:Abnormal prostate specific antigen (PSA) Take 1 capsule (0.4 mg) by mouth Once per day. 90 capsule 11/23/19 25 025 Active lisdexamfetamin e (Vyvanse) 50 MG capsuleIndicati ons:Antisocial personality disorder (CMS/HCC),ADHD, impulsive type Take 1 capsule (50 mg) by mouth in the morning for 9 days. 9 capsule 11/23/19 25 025 Active acetaminophen (Tylenol) 500 MG tabletIndicatio ns:Chronic midline low back pain with bilateral sciatica Take 2 tablets (1,000 mg) by mouth 3 times daily. 540 tablet 08/18/20 24 025 tamsulosin (Flomax) 0.4 MG 24 hr capsuleIndicati ons:Abnormal prostate specific antigen (PSA) Take 1 capsule (0.4 mg) by mouth Once per day. 90 capsule 10/10/20 24 025 Discontinued(R eorder (will not trigger notification to Pharmacy)) lisdexamfetamin e (Vyvanse) 50 MG capsuleIndicati ons:Antisocial personality disorder (CMS/HCC),ADHD, impulsive type Take 1 capsule (50 mg) by mouth in the morning for 28 days. 28 capsule 10/26/20 24 025 Discontinued(R eorder (will not trigger notification to Pharmacy)) Active Problems Problem Noted Date Diagnosed Date Unsheltered homelessness 10/26/2023 Alcohol use disorder, severe, in early remission 01/21/2023 Antisocial personality disorder 01/21/2023 Sheltered homelessness 01/21/2023 ADHD, impulsive type 01/21/2023 Slow transit constipation 01/21/2023 Allergic rhinitis 01/21/2023 Chronic midline low back pain with bilateral sci atica 01/21/2023 Impulse control disorder 01/21/2023 Morbid obesity 01/21/2023 Abnormal prostate specific antigen (PSA) 023 Vitamin D deficiency 01/21/2023 BMI 35.0-35.9,adult 01/21/2023 Encounters Date Type Department Care Team Description 11/24/2024 Telephone [place] [address] [address] Roberta Wilde MD PT1 11/23/[address] [address] Roberta Wilde MD Abnormal prostate specific antigen (PSA); Chronic midline low back pain with bilateral sciatica; Alcohol use disorder, severe, in early remission (CMS/HCC); Antisocial personality disorder (CMS/HCC); ADHD, impulsive type; Impulse control disorder 11/11/2024 9:20 AM EST Office Visit [address] [address] Roberta Wilde MD Colon cancer screening (Primary Dx); Right hip pain; Right hip crepitus; Need for vaccination 11/11/[address] [address] Roberta Wilde MD PT-1 11/09/2024 Travel 10/25/[address] [address] Roberta Wilde MD Antisocial personality disorder (CMS/HCC); ADHD, impulsive type; Impulse control disorder 10/21/[address] [address] Roberta Wilde MD PT-1 Problem 10/15/2024 Travel 10/14/2024 Orders Only [facility] [address] [place] [address] Roberta Wilde MD 10/14/[address] [address] Roberta Wilde MD PT1 10/11/[address] [address] Roberta Wilde MD PT1 10/11/[address] [address] Roberta Wilde MD Med Refill 10/11/2024 Refill [facility] [address] [place] [address] Roberta Wilde MD Chronic midline low back pain with bilateral sciatica; Allergic rhinitis, unspecified seasonality, unspecified trigger; Mild intermittent asthma, unspecified whether complicated 10/10/2024 Patient Outreach [address] [address] Leonila Shipman Med Management 10/10/2024 Orders Only [address] [address] Roberta Wilde MD Antisocial personality disorder (CMS/HCC); Abnormal prostate specific antigen (PSA); Impulse control disorder; Chronic midline low back pain with bilateral sciatica; Alcohol use disorder, severe, in early remission (CMS/HCC); Allergic rhinitis, unspecified seasonality, unspecified trigger 10/07/[address] [address] JhonnyFebruary Case Management 10/07/2024 Telephone [facility] [address] [place] [address] Roberta Wilde MD Prior Authorization 10/05/2024 Patient Outreach [address] [address] Alee Cramer Med Management 09/30/2024 Telephone [facility] [address] [place] [address] Roberta Wilde MD Prior Authorization (No PA needed for generic vyvanse) 09/29/2024 Patient Outreach [address] [address] Leonila Shipman Med Management 09/28/[address] [address] Roberta Wilde MD Chronic midline low back pain with bilateral sciatica; Alcohol use disorder, severe, in early remission (CMS/HCC); Antisocial personality disorder (CMS/HCC) 09/27/[address] [address] Roberta Wilde MD Antisocial personality disorder ([facility]/HCC); ADHD, impulsive type 09/26/[address] [address] Roberta Wilde MD PT-1 09/22/2024 Patient Outreach [address] [address] Umberto Leonila 09/21/2024 4:00 PM EST Telemedicine [address] [address] Roberta Wilde MD Allergic rhinitis, unspecified seasonality, unspecified trigger; Antisocial personality disorder (CMS/HCC); ADHD, impulsive type; Impulse control disorder; Chronic midline low back pain with bilateral sciatica; Alcohol use disorder, severe, in early remission ([facility]/HCC); Mild intermittent asthma, unspecified whether complicated 09/21/[address] [address] Roberta Wilde MD Med Refill 09/20/[address] [address] Roberta Wilde MD PT1 09/20/[address] [address] Roberta Wilde MD PT1 09/20/2024 Orders Only [facility] [address] [place] [address] Roberta Wilde MD 09/19/[address] [address] Roberta Wilde MD Hospital Follow-up; Dizziness; Care Coordination 09/16/[address] [address] LauritaTrupti floydLEE Care Management 09/16/[address] [address] Roberta Wilde MD PT-1 09/15/2024 Patient Outreach [address] [address] ShipmanLeonila 09/15/2024 Travel 09/13/[address] [address] Mayra Barry Care Management 09/09/2024 12:00 PM EDT Office Visit [address] [address] Roberta Wilde MD ADHD, impulsive type (Primary Dx); Antisocial personality disorder (CMS/HCC); Impulse control disorder 09/09/2024 Orders Only [facility] Information Management [address] [place] [address] Roberta Wilde MD 09/08/[address] [address] Roberta Wilde MD Prior Authorization 09/08/2024 Travel 09/07/[address] [address] Roberta Wilde MD PT-1 09/06/[address] [address] Roberta Wilde MD Allergic rhinitis, unspecified seasonality, unspecified trigger; Antisocial personality disorder (CMS/HCC); Impulse control disorder 09/05/2024 Orders Only [facility] Management [address] [place] [address] Roberta Wilde MD 09/05/2024 Patient Outreach [address] [address] Jane Estrada CHW - resource list mailed 09/05/2024 Telephone [facility] [address] [id number] Roberta Wilde MD Hospital Follow-up from Last 3 Months Immunizations Name Administration Dates Next Due Hep B, adult 10/19/2016,09/15/2016 Influenza injectable quadrivalent preservative f ree 07/27/2018 Influenza, IIV3, injectable 09/17/2016 Influenza, Injectable, MDCK, w/preservative 01/2025 Influenza, trivalent, adjuvanted 09/02/2017 Moderna Covid-19 Vaccine 12+ 11/11/2024 Pneumococcal Polysaccharide PPSV23 08/15/2014 Tdap 01/19/2013 Family History Medical History Relation Name Comments Coronary artery disease Father Heart attack Father x2 Prostate cancer Father Coronary artery disease Mother OCD Sister Relation Name Status Comments Father Mother Sister Social History Tobacco Use Types Packs/Day Years Used Date Smoking Tobacco: Every Day Cigarettes Started: 06/30/1983 Tobacco Cessation:Ready to Q uit: Not Asked; Counseling Given: Not Answered Housing Stability Answer Date Recorded What is your housing situation today? I have housing today, but I am worried about losing housing in the future 09/16/[address] you li ve. Do you have problems with any of the following? I am not sure 09/16/2024 Food Insecurity Answer Date Recorded Within the past 12 months, y ou worried that your food would run out before you got money to buy more: Often true 2023 Within the past 12 months,th e food you bought just didn't last and you didn't have enough money to get more: Sometimes True 09/16/2024 Transportation Answer Date Recorded In the past 12 months, has l ack of transportation kept you from medical appts, meetings, work or from getting things needed for daily living? No 09/16/2024 Utilities Answer Date Recorded In the past 12 months, has t he electric, gas, oil or water company threatened to shut off services in your home? No 09/16/2024 Internet Access Answer Date Recorded Internet Access Q1 Yes 09/16/2024 Internet Access Q2 Not on file 09/16/2024 Sex and Gender Information Value Date Recorded Sex Assigned at Male 12/18/2022 11:35 AM EST Legal Sex Male 8:40 PM EDT Gender Identity Male 12/18/2022 11:35 AM EST Sexual Orientation Straight 07/29/2023 12 :01 PM EDT Last Filed Vital Signs Vital Sign Reading Time Taken Comments Blood Pressure 178/95 11/11/2024 9:12 AM EST Pulse 60 11/11/2024 9:12 AM EST Temperature 36.4 ??C (97.6 ??F) 11/11/2024 9:12 AM ES T Respiratory Rate 18 11/11/2024 9:12 AM EST Oxygen Saturation 92% 09/09/2024 11:51 AM EDT Inhaled Oxygen Concentration - - Weight 101 kg (222 lb) 11/11/2024 9:12 AM EST Height 177.8 cm (5' 10 ) 08/03/2023 10:20 AM EDT Body Mass Index 31.85 08/03/2023 10:20 AM EDT Plan of Treatment Upcoming Encounters Date Type Department Care Team (Late st Contact Info) Description 12/21/2024 10:40 AM EST Office Visit [place] [facility] [address] [place] [address] Roberta Wilde MD [address] [place] [address] Health Maintenance Due Date Last Done Comments CT Colonography 1973 Colonoscopy 1973 Colorectal Cancer Screening 1973 Depression Screening 1973 FIT DNA/Cologuard 1973 FIT 1973 FOBT 1973 HIV Screening 1973 Sigmoidoscopy 1973 Alcohol/Substance Use Screening 1985 Hepatitis C Screening 1991 Hepatitis A Vaccines (1 of 2 - Risk 2-dose series) 1992 Pneumococcal Vaccine: Pediatrics (0 to 5 Years) and At-Risk Patients (6 to 64 Years) (2 of 2 - PCV) 08/15/2015 08/15/2014 Hepatitis B Vaccines (3 of 3 - 19+ 3-dose series) 03/15/2017 10/19/2016, 09/15/2016 Dental X-Ray: Bitewings 04/29/2019 04/28/2018 Dental Oral Exam 07/05/2019 01/04/2019, 04/28/2018 Dental Prophylaxis 07/05/2019 01/04/2019, 05/25/2018 DTaP/Tdap/Td Vaccines (2 - Td or Tdap) 01/19/2023 01/19/2013 Zoster Vaccines (1 of 2) 2023 Influenza Vaccine (#1) 2024 , 07/27/2018, 09/02/2017, Additional history exists Tobacco Screening 09/09/2025 09/09/2024 SDOH Screening 09/16/2025 09/16/2024 Dental X-Ray: Full Mouth 07/21/2027 07/20/2024, 04/10 Lipid Panel 09/28/2029 09/28/2024, 02/04/2023 RSV Patients and Patients Aged 60 years or older (1 - 1-dose 75+ series) 2048 COVID-19 Vaccine Completed 11/11/2024, , 04/07/2021 HIB Vaccines Aged Out No longer eligi ble based on patient's age to complete this topic HPV Vaccines Aged Out No longer eligi ble based on patient's age to complete this topic IPV Vaccines Aged Out No longer eligi ble based on patient's age to complete this topic Meningococcal Vaccine Aged Out No pam maria eligible based on patient's age to complete this topic RSV under 20 months Aged Out No longe r eligible based on patient's age to complete this topic Rotavirus Vaccines Aged Out No longer eligible based on patient's age to complete this topic Procedures Procedure Name Priority Date/Time Associated Diagnosis Comments XR KNEE 4+ VIEWS RIGHT Routine 11/29/2024 Right hip pain Right hip crepitus XR HIP 2 OR 3 VIEWS RIGHT Routine 11/29/2024 Right hip pain Right hip crepitus CT FACIAL BONES W CONTRAST Routine 10/14/2024 12:51 PM EST AMB REFERRAL TO UROLOGY STAT 09/29/2024 Abnormal prostate specific antigen (PSA) CBC WITH AUTO DIFFERENTIAL Routine 09/28/2024 buttermaker helper current use of antipsychotic medication COMPREHENSIVE METABOLIC PANEL Routine 09/28/2024 buttermaker helper current use of antipsychotic medication LIPID PANEL, STANDARD Routine 09/28/2024 USP current use of antipsychotic medication HEMOGLOBIN A1C Routine 09/28/2024 buttermaker helper current use of antipsychotic medication PROSTATE-SPECIFIC ANTIGEN (PSA), FREE:TOTAL RATIO REFLEX Routine 09/28/2024 Abnormal prostate specific antigen (PSA) ECG 12-LEAD Routine 09/18/2024 8:54 AM EST ECG 12-LEAD Routine 09/09/2024 2:22 PM EDT US VENOUS DUPLEX LE RT Routine 10:02 AM EDT Full PANORAMIC RADIOGRAPHIC IMAGE Routine 07/20/2024 2:30 PM EDT PROPHYLAXIS - ADULT Routine 01/04/2019 1 2:00 AM EST PERIODIC ORAL EVALUATION - ESTABLISHED PATIENT Routine 01/04/2019 12:00 AM EST DIAGNOSTIC - DIAGNOSTIC IMAGING - INTRAORAL - COMPREHENSIVE SERIES OF RADIOGRAPHIC IMAGES Routine 04/28/2018 12:00 AM EDT from Last 3 Months or Most Recently Relevant to Health Maintenance Results * XR Knee 4+ Views Right (11/29/2024) Anatomical Region Laterality Modality Lower Extremities, Knee Right Radiogra phic Imaging us Roberta Wilde MD IMG XR PROCEDURES Final Result * XR Hip 2 or 3 Views Right (11/29/2024) Anatomical Region Laterality Modality Lower Extremities, Hip Right Radiograp hic Imaging us Roberta Wilde MD IMG XR PROCEDURES Final Result * CT FACIAL BONES W CONTRAST (10/14/2024 12:51 PM EST) Anatomical Region Laterality Modality Computed Tomogra phy us Roberta Wilde MD IMG CT PROCEDURES Final Result * Referral to Urology (09/29/2024) us Roberta Wilde MD OUTPATIENT REFERRAL ORDERABLES Final Result * Prostate-specific Antigen (PSA), Free:Total Ratio Reflex (09/28/2024) Blood Venous blood specimen / Unknown us Roberta Wilde MD LAB BLOOD ORDERABLES Final Res ult [facility] [address] [place] [address], [place] [phone] * CBC auto differential (09/28/2024) Blood Venous blood specimen / Unknown us Roberta Wilde MD LAB BLOOD ORDERABLES Final Res ult Performing Organization Address [facility] de Phone Number [facility] [address] [place] [address], [place] [phone] * Hemoglobin A1c (09/28/2024) Blood Venous blood specimen / Unknown us Roberta Wilde MD LAB BLOOD ORDERABLES Final Res ult Performing Organization Address [facility] de Phone Number [facility] [address] [place] [address], [place] [phone] * Lipid Panel, Standard [address] (09/28/2024) Blood Venous blood specimen / Unknown us Roberta Wilde MD LAB BLOOD ORDERABLES Final Res ult Performing Organization Address [facility] de Phone Number [facility] [address] [place] [address], [place] [phone] * Comprehensive Metabolic Panel (09/28/2024) Blood Venous blood specimen / Unknown us Roberta Wilde MD LAB BLOOD ORDERABLES Final Res ult Performing Organization Address [facility] de Phone Number [facility] [address] [place] [address], [place] [phone] * ECG 12 lead (09/18/2024 8:54 AM EST) Only the most recent of2 resultswithin the time period is included. us Roberta Wilde MD ECG ORDERABLES Final Result * US VENOUS DUPLEX LE RT (09/04/2024 10:02 AM EDT) Anatomical Region Laterality Modality Abdomen Ultrasound us Roberta Wilde MD IMG US PROCEDURES Final Result from Last 3 Months Insurance [facility] C3 DENTAL-[facility] MEDICAID STAND ADULT Member Subscriber Plan / Payer ( [facility]Present[facility] Name:Ludwig Carson Relation to Subscriber:Self Name:Ludwig Carson Payer ID:Not on file Group ID:Not on file Type:Not on file Address: [address] [address] [address] [place] [id number] Care Teams Human Performance Consultant Relationship Specialty Start Date End Date Roberta Wilde MD [address] [place] [address] PCP - General Family Medicine 12/03/22
--- OUTSIDE RECORDS SUMMARY | 2024-11-30 11:38 | XMS_ITS | Encounter Summary ---
Author Organization [employer] Address [address] [place] [address] [address] [place] [address] Care Team Providers Care Travel Clerk Name Role Phone Roberta Wilde MD Primary Care Provider [phone] Reason for Visit * Reason Onset Date Comments PT-1 11/11/2024 Encounter Details Date Type Department Care Team (Late st Contact Info) Description 11/11/2024 Telephone [place] [facility] [address] [place] [address] Roberta Wilde MD [address] [place] [address] PT-1 Social History Tobacco Use Types Packs/Day Years Used Date Smoking Tobacco: Every Day Cigarettes Started: 06/30/1983 Housing Stability Answer Date Recorded What is [...] Orientation Straight 07/29/2023 12 :01 PM EDT documented as of this encounter Miscellaneous Notes * Telephone Encounter - Starr Johnson - 11/15/2024 11:03 AM EST PT-1 Request Number [id number] is authorized. * Telephone Encounter - Starr Johnson - 11/14/2024 2:04 PM EST PT-1 Request Number [id number] is Pending * Telephone Encounter - Shilpa Harrington - 11/11/2024 10:11 AM EST Pt would like to make sure he has PT-1 to [place] visit if & when it is scheduled documented in this encounter Plan of Treatment Upcoming Encounters Date Type Department Care Team (Late st Contact Info) Description 12/21/2024 10:40 AM EST Office Visit [place] [facility] [address] [place] [address] Roberta Wilde MD [address] [place] [address] documented as of this encounter Visit Diagnoses Not on filedocumented in this encounter Care Teams Travel Clerk Relationship Specialty Start Date End Date Roberta Wilde MD [address] [place], [place] PCP - General Family Medicine 12/03/22 documented as of this encounter
--- OUTSIDE RECORDS SUMMARY | 2024-11-30 11:38 | XMS_ITS | Encounter Summary ---
Author Organization [employer] Address [address] [place] [address] [address], [place] [address] Care Team Providers Care Coal Miner Name Role Phone Roberta Wilde MD Primary Care Provider [phone] Reason for Visit * Reason Onset Date Comments PT1 11/24/2024 Encounter Details Date Type Department Care Team (Late st Contact Info) Description 11/24/[address] [facility] [address] [place] [address] Roberta Wilde MD [address] [place] [address] PT1 Social History Tobacco Use Types Packs/Day Years [...] * Telephone Encounter - Starr Johnson - 11/24/2024 3:38 PM EST [id number] Ludwig Carson - 1975 [address] [facility] [address] Clinical & Support Options, [facility] - [address] [place] [address] [address] 11/24/2025 Frequency - 4 per Week - Duration 12 Month(s) Escort:Yes Wheelchair:No Transportation Phone: [facility] [phone] Authorized * Telephone Encounter - Starr Johnson - 11/24/2024 3:28 PM EST PT-1 Request Number [id number] is Pending * Telephone Encounter - Magi Lee - 11/24/2024 2:45 PM EST Pt-1 Request/Renewal: request Name of Treating Provider/Treating Facility: [facility] Address of Treating Facility: [address] [place] [address] Number of Visits Requested: 4 visit a week Patient's Physical Address: [address] [place], [place] [address]Mitch ESPINOZA [facility] [address] Date of Upcoming Appt: 12/07 No oxygen No wheelchair No feed grinder documented in this encounter Plan of Treatment Upcoming Encounters Date Type Department Care Team (Late st Contact Info) Description 12/21/2024 10:40 AM EST Office Visit [place] [facility] [address] [place] [address] Roberta Wilde MD 70 [facility] [place] [facility] [address] documented as of this encounter Visit Diagnoses Not on filedocumented in this encounter Care Teams Coal Miner Relationship Specialty Start Date End Date Roberta Wilde MD [address] [place] [address] PCP - General Family Medicine 12/03/22 documented as of this encounter
--- OUTSIDE RECORDS SUMMARY | 2024-11-30 11:38 | XMS_ITS | Encounter Summary ---
Author Organization [employer] Address [address] [place] [address] 7 [place] [address] Care Team Providers Care Mission Manager Name Role Phone Roberta Wilde MD Primary Care Provider [phone] Reason for Visit * Reason Onset Date Comments Med Refill 11/23/2024 Encounter Details Date Type Department Care Team (Late st Contact Info) Description 11/23/2024 Refill [place] [facility] [address] [place] [address] Roberta Wilde MD [address] [place] [address] Abnormal prostate specific antigen (PSA); Chronic midline low back pain with bilateral sciatica; Alcohol use disorder, severe, in early remission (CMS/HCC); Antisocial personality disorder (CMS/HCC); ADHD, impulsive type; Impulse control disorder Social History Tobacco Use Types Packs/Day Years [...] * Telephone Encounter - Starr Johnson - 11/23/2024 12:06 PM EST Masspat Last fill Date: 10.29.24 Masspat sold Date: 10.31.24 Last OV: 11.11.24 Next OV: none Last UTOX: none CSA Date: None DNF Date: 11.26.24 documented in this encounter Plan of Treatment Upcoming Encounters Date Type Department Care Team (Late st Contact Info) Description 12/21/2024 10:40 AM EST Office Visit [place] [facility] [address] [place] [address] Roberta Wilde MD [address] [place] [address] documented as of this encounter Visit Diagnoses Diagnosis Abnormal prostate specific antigen (PSA) Chronic midline low back pain with bilateral sciatica Alcohol use disorder, severe, in early remission (CMS/HCC) Antisocial personality disorder (CMS/HCC) Antisocial personality disorder ADHD, impulsive type Impulse control disorder Impulse control disorder, unspecified documented in this encounter Care Teams Mission Manager Relationship Specialty Start Date End Date Roberta iWlde MD [address] [place] [address] PCP - General Family Medicine 12/03/22 documented as of this encounter
--- OUTSIDE RECORDS SUMMARY | 2024-11-30 11:39 | XMS_ITS | Encounter Summary ---
Author Organization [employer] Address [address] [place] [address] 7 [place] [address] Care Team Providers Care Psychology Assistant Name Role Phone Roberta Wilde MD Primary Care Provider Encounter Details Date Type Department Care Team (Late st Contact Info) Description 07/21/[address] [facility] [address] [place] [address] Roberta Wilde MD [address] [place] [address] Social History Tobacco Use Types Packs/Day Years Used Date Smoking Tobacco: Every Day Cigarettes Started: 06/30/1983 Sex and Gender Information Value Date Recorded Sex Assigned at Male 12/18/2022 11:35 AM EST Legal Sex Male 8:40 PM EDT Gender Identity Male 12/18/2022 11:35 AM EST Sexual Orientation Straight 07/29/2023 12 :01 PM EDT documented as of this encounter Miscellaneous Notes * Telephone Encounter - Solange Vásquez - 07/21/2024 2:21 PM EDT Patient calling again about his pain * Telephone Encounter - Solange Vásquez - 07/21/2024 8:41 AM EDT Patient is in a lot of pain and the meds he was prescribed and where he is they would not give him the med what they gave him did not even touch his pain would like to speak to dr Reid documented in this encounter Plan of Treatment Upcoming Encounters Date Type Department Care Team (Late st Contact Info) Description 12/21/2024 10:40 AM EST Office Visit [place] [facility] [address] [place] [address] Roberta Wilde MD [address] [place] [address] documented as of this encounter Visit Diagnoses Not on filedocumented in this encounter Care Teams Psychology Assistant Relationship Specialty Start Date End Date Roberta iWlde MD 70 [facility] [place] [address] PCP - General Family Medicine 12/03/22 documented as of this encounter
--- OUTSIDE RECORDS SUMMARY | 2024-11-30 11:39 | XMS_ITS | Encounter Summary ---
Author Organization [employer] Address [address] [place] [address] 7 [place] [address] Care Team Providers Care Enterprise Engineer Name Role Phone Roberta Wilde MD Primary Care Provider [phone] Reason for Visit * Reason Comments Med Refill Encounter Details Date Type Department Care Team (Late st Contact Info) Description 06/19/2024 Refill [place] [facility] [address] [place] [address] Roberta Wilde MD [address] [place] [address] Antisocial personality disorder (CMS/HCC); ADHD, impulsive type Social History Tobacco Use Types Packs/Day Years Used Date Smoking Tobacco: Every Day Cigarettes Started: 06/30/1983 Sex and Gender Information Value Date Recorded Sex Assigned at Male 12/18/2022 11:35 AM EST Legal Sex Male 8:40 PM EDT Gender Identity Male 12/18/2022 11:35 AM EST Sexual Orientation Straight 07/29/2023 12 :01 PM EDT documented as of this encounter Miscellaneous Notes * Telephone Encounter - Shania Marquis [place] - 06/20/2024 3:41 PM EDT Ritalin 20mg 28 day supply Masspat Last fill Date: 09/01/23 Last OV: 08/24/23 Next OV: 07/06/24 Last UTOX: 08/27/23 CSA Date: 01/30/23 DNF Date: documented in this encounter Plan of Treatment Upcoming Encounters Date Type Department Care Team (Late st Contact Info) Description 12/21/2024 10:40 AM EST Office Visit [place] [facility] [address] [place] [address] Roberta Wilde MD [address] [place] [address] documented as of this encounter Visit Diagnoses Diagnosis Antisocial personality disorder (CMS/[facility]) Antisocial personality disorder ADHD, impulsive type documented in this encounter Care Teams Enterprise Engineer Relationship Specialty Start Date End Date Roberta Wilde MD [address] [place] [address] PCP - General Family Medicine 12/03/22 documented as of this encounter
--- OUTSIDE RECORDS SUMMARY | 2024-11-30 11:39 | XMS_ITS | Encounter Summary ---
Author Organization [employer] Address [address] [place] [address] [place] [address] Care Team Providers Care Manager Social Responsibility Name Role Phone Roberta Wilde MD Primary Care Provider [phone] Reason for Visit * Reason Onset Date Comments Med Refill 07/24/2023 Encounter Details Date Type Department Care Team (Late st Contact Info) Description 07/24/2023 Refill [facility] [address] [place] [address] Roberta Wilde MD [address] [place] [address] Chronic midline low back pain with bilateral sciatica; Vitamin D deficiency; ADHD, impulsive type; Antisocial personality disorder (CMS/HCC) Social History Tobacco Use Types Packs/Day Years Used Date Smoking Tobacco: Every Day Cigarettes Started: 06/30/1983 Sex and Gender Information Value Date Recorded Sex Assigned at Male 12/18/2022 11:35 AM EST Legal Sex Male 8:40 PM EDT Gender Identity Male 12/18/2022 11:35 AM EST Sexual Orientation Straight 07/29/2023 12 :01 PM EDT documented as of this encounter Miscellaneous Notes * Telephone Encounter - Shannan Escobar - 07/24/2023 10:46 AM EDT Masspat Last fill Date: Gabapentin 04/03/23 Vyvanse 50mg 03/31 lorazepam 1mg 03/30/23 Last OV:03/27/23 Next OV: non pending Last UTOX:09/17/2021 CSA Date:02/04/23 documented in this encounter Plan of Treatment Upcoming Encounters Date Type Department Care Team (Late st Contact Info) Description 12/21/2024 10:40 AM EST Office Visit [place] [facility] [address] [place] [address] Roberta Wilde MD [address] [place] [address] documented as of this encounter Visit Diagnoses Diagnosis Chronic midline low back pain with bilateral sciatica Vitamin D deficiency ADHD, impulsive type Antisocial personality disorder (CMS/HCC) Antisocial personality disorder documented in this encounter Care Teams Manager Social Responsibility Relationship Specialty Start Date End Date Roberta Wilde MD [address] [place] [address] PCP - General Family Medicine 12/03/22 documented as of this encounter
--- OUTSIDE RECORDS SUMMARY | 2024-11-30 11:39 | XMS_ITS | Encounter Summary ---
Author Organization [employer] Address [address] [place] [address] [address] [place] [address] Care Team Providers Care Lumber Handler Name Role Phone Roberta Wilde MD Primary Care Provider [phone] Encounter Details Date Type Department Care Team (Late st Contact Info) Description 09/20/2024 Orders Only [facility] [address] [place] [address] Roberta Wilde MD [address] [place] [address] Social History Tobacco Use Types Packs/Day Years [...] PM EDT documented as of this encounter Plan of Treatment Upcoming Encounters Date Type Department Care Team (Late st Contact Info) Description 12/21/2024 10:40 AM EST Office Visit [place] [facility] [address] [place] [address] Roberta Wilde MD [address] [place] [address] documented as of this encounter Procedures Procedure Name Priority Date/Time Associated Diagnosis Comments ECG 12-LEAD Routine 09/18/2024 8:54 AM EST documented in this encounter Results * ECG 12 lead (09/18/2024 8:54 AM EST) us Roberta Wilde MD ECG ORDERABLES Final Result documented in this encounter Visit Diagnoses Not on filedocumented in this encounter Care Teams Lumber Handler Relationship Specialty Start Date End Date Roberta Wilde MD [address] [place] [address] PCP - General Family Medicine 12/03/22 documented as of this encounter
--- OUTSIDE RECORDS SUMMARY | 2024-11-30 11:39 | XMS_ITS | Encounter Summary ---
Author Organization [employer] Address [address] [place] [address] 7[address] [place] [address] Care Team Providers Care Chute Loader Name Role Phone Roberta Wilde MD Primary Care Provider [phone] Encounter Details Date Type Department Care Team (Latest Contact Info) Description 11/09/2024 Travel Social History Tobacco Use Types Packs/Day Years [...] 12/21/2024 10:40 AM EST Office Visit Ana [facility] [address] [facility] [address] Roberta Wilde MD [address] [place] [address] documented as of this encounter Visit Diagnoses Not on filedocumented in this encounter Care Teams Chute Loader Relationship Specialty Start Date End Date Roberta Wilde MD 70 [place] [address] PCP - General Family Medicine 12/03/22 documented as of this encounter
--- OUTSIDE RECORDS SUMMARY | 2024-11-30 11:39 | XMS_ITS | Encounter Summary ---
Author Organization [employer] Address [address] [facility] 7 [place] [address] Care Team Providers Care Activated Sludge Attendant Name Role Phone Roberta Wilde MD Primary Care Provider [phone] Reason for Visit * Reason Comments Case Management Encounter Details Date Type Department Care Team (Babak st Contact Info) Description 10/07/2024 Telephone [facility] [address] [place] [address] JhonnyFebruary Case Management Social History Tobacco Use Types Packs/Day Years [...] Description 12/21/2024 10:40 AM EST Office Visit [place] [facility] [address] [place] [address] Roberta Wilde MD [address] [place] [address] documented as of this encounter Visit Diagnoses Not on filedocumented in this encounter Care Teams Activated Sludge Attendant Relationship Specialty Start Date End Date Roberta Wilde MD [address] [place] [address] PCP - General Family Medicine 12/03/22 documented as of this encounter
--- OUTSIDE RECORDS SUMMARY | 2024-11-30 11:39 | XMS_ITS | Encounter Summary ---
Author Organization [employer] Address [address] [place] [address] 7[address] [place] [address] Care Team Providers Care Spinning Doffer Name Role Phone Roberta Wilde MD Primary Care Provider [phone] Encounter Details Date Type Department Care Team (Late st Contact Info) Description 10/14/2024 Orders Only [facility] [address] [place] [address] Roberta Wilde MD [address] [place] [address] Social History Tobacco Use Types Packs/Day Years [...] 12/21/2024 10:40 AM EST Office Visit Ana [facility] [address] [place] [address] Roberta Wilde MD [address] [place] [address] documented as of this encounter Procedures Procedure Name Priority Date/Time Associated Diagnosis Comments CT FACIAL BONES W CONTRAST Routine 10/14/2024 12:51 PM EST documented in this encounter Results * CT FACIAL BONES W CONTRAST (10/14/2024 12:51 PM EST) Anatomical Region Laterality Modality Computed Tomogra phy us Roberta Wilde MD IMG CT PROCEDURES Final Result documented in this encounter Visit Diagnoses Not on filedocumented in this encounter Care Teams Spinning Doffer Relationship Specialty Start Date End Date Roberta Wilde MD [address] [place] [address] PCP - General Family Medicine 12/03/22 documented as of this encounter
--- OUTSIDE RECORDS SUMMARY | 2024-11-30 11:39 | XMS_ITS | Encounter Summary ---
Author Organization [facility] [employer] Address [address] [place] [address] [address] [address] Care Team Providers Care Predatory Animal Exterminator Name Role Phone Roberta Wilde MD Primary Care Provider [phone] Encounter Details Date Type Department Care Team (Late Contact Info) Description 09/05/2024 Orders Only [facility] [address] [place] [address] Roberta Wilde MD [address] [place] [address] Social History Tobacco Use Types Packs/Day Years [...] Description 12/21/2024 10:40 AM EST Office Visit [facility] [address] [place] [address] Roberta Wilde MD [address] [place] [address] documented as of this encounter Procedures Procedure Name Priority Date/Time Associated Diagnosis Comments US VENOUS DUPLEX LE RT Routine 09/04/2024 10:02 AM EDT documented in this encounter Results * US VENOUS DUPLEX LE RT (09/04/2024 10:02 AM EDT) Anatomical Region Laterality Modality Abdomen Ultrasound us Roberta Wilde MD IMG US PROCEDURES Final Result documented in this encounter Visit Diagnoses Not on filedocumented in this encounter Care Teams Predatory Animal Exterminator Relationship Specialty Start Date End Date Roberta Wilde MD [address] [place] [address] PCP - General Family Medicine 12/03/22 documented as of this encounter
--- OUTSIDE RECORDS SUMMARY | 2024-11-30 11:39 | XMS_ITS | Encounter Summary ---
Author Organization [employer] Address [address] [place] [address] [address] [place] [address] Care Team Providers Care Wire Coiler Machine Operator Name Role Phone Roberta Wilde MD Primary Care Provider [phone] Reason for Visit * Reason Comments Med Refill Encounter Details Date Type Department Care Team (Late st Contact Info) Description 09/28/2024 Refill [place] [facility] [address] [place] [address] Roberta Wilde MD [address] [place] [address] Chronic midline low back pain with bilateral sciatica; Alcohol use disorder, severe, in early remission (CMS/HCC); Antisocial personality disorder (CMS/HCC) Social History Tobacco [...] * Telephone Encounter - Starr Johnson - 09/28/2024 11:45 AM EST Duplicates for all 3 medications documented in this encounter Plan of Treatment Upcoming Encounters Date Type Department Care Team (Late st Contact Info) Description 12/21/2024 10:40 AM EST Office Visit [place] [facility] [address] [place] [address] Roberta Wilde MD [address] [place] [address] documented as of this encounter Visit Diagnoses Diagnosis Chronic midline low back pain with bilateral sciatica Alcohol use disorder, severe, in early remission (CMS/HCC) Antisocial personality disorder (CMS/HCC) Antisocial personality disorder documented in this encounter Care Teams Wire Coiler Machine Operator Relationship Specialty Start Date End Date Roberta Wilde MD [address] [place] [address] PCP - General Family Medicine 12/03/22 documented as of this encounter
--- OUTSIDE RECORDS SUMMARY | 2024-11-30 11:39 | XMS_ITS | Encounter Summary ---
Author Organization [facility] [employer] Address [address] [place] [address] Care Team Providers Care Homicide Investigator Name Role Phone Roberta Wilde MD Primary Care Provider [phone] Reason for Referral * Imaging (Routine) - Pending Review Specialty Diagnoses / Procedures Referred By Lukas hong Referred To Contact Radiology Diagnoses Right hip pain Right hip crepitus Procedures XR Knee 4+ Views Right Roberta Wilde MD [address] [place], [place] Phone: tel: fax: [facility] Referral ID Status Reason Start Date Expiration Date V isits Requested Visits Authorized [id number] Pending Review 11/11/2024 11/11/2025 1 1 * Imaging (Routine) - Pending Review Specialty Diagnoses / Procedures Referred By Lukas hong Referred To Contact Radiology Diagnoses Right hip pain Right hip crepitus Procedures XR Hip 2 or 3 Views Right Roberta Wilde MD [address] [place], [place] Phone: tel: fax: [facility] Referral ID Status Reason Start Date Expiration Date V isits Requested Visits Authorized [id number] Pending Review 11/11/2024 11/11/2025 1 1 Reason for Visit * Reason Comments Follow-up Encounter Details Date Type Department Care Team (Late st Contact Info) Description 11/11/2024 9:20 AM EST Office Visit [place] [facility] [address] [place] [address] Roberta Wilde MD [address] [place], [place] Colon cancer screening (Primary Dx); Right hip pain; Right hip crepitus; Need for vaccination Social History Tobacco Use Types Packs/Day Years [...] PM EDT documented as of this encounter Last Filed Vital Signs Vital Sign Reading Time Taken Comments Blood Pressure 178/95 11/11/2024 9:12 AM EST Pulse 60 11/11/2024 9:12 AM EST Temperature 36.4 ??C (97.6 ??F) 11/11/2024 9:12 AM ES T Respiratory Rate 18 11/11/2024 9:12 AM EST Oxygen Saturation - - Inhaled Oxygen Concentration - - Weight 101 kg (222 lb) 11/11/2024 9:12 AM EST Height - - Body Mass Index 31.85 08/03/2023 10:20 AM EDT documented in this encounter Progress Notes * Roberta Wilde MD - 11/11/2024 9:20 AM EST Subjective Ludwig Carson is a 49 y.o. male who presents for chronic care f/u HISTORY OF PRESENT ILLNESS: Experiencing urinary urgency and incontinence for approximately 15 years, with symptoms worsening to the point of needing pull-ups at night to prevent bedwetting. Currently taking Flomax, which provides some relief, but still struggling with symptoms. Financial concerns about the cost of recommended medical tests, such as cystoscopy, to further investigate urinary issues. Recently transitioned from Methadone to Subutex, now on the third day, and experiencing withdrawal symptoms including pain, nausea, and diarrhea. Right leg is causing significant issues, with numbness, pain, and difficulty in mobility, leading to tripping and dragging the leg. Pain is particularly severe in the knee and ankle, with a history of remote trauma to the ankle. Early degenerative changes noted in the knee. Facing housing instability, currently living with a friend of the family without a formal lease, considered sheltered homeless. Challenges with Social Security and health insurance paperwork, seekingassistance to manage these tasks. Interested in receiving flu and COVID vaccinations, as well as undergoing colon cancer screening. Current Outpatient Medications Medication Sig Dispense Refill acetaminophen (Tylenol) 500 MG tablet Take 2 tablets (1,000 mg) by mouth 3 times daily. 540 tablet 0 albuterol (Ventolin HFA) 108 (90 Base) MCG/ACT inhaler Inhale 2 puffs every 4 (four) hours if needed for wheezing or shortness of breath. 8 g 5 ARIPiprazole (Abilify) 5 MG tablet Take 1 tablet (5 mg) by mouth Once per day. 90 tablet 0 busPIRone (Buspar) 30 MG tablet Take 1 tablet (30 mg) by mouth 2 times daily. 180 tablet 0 carBAMazepine (TEGretol) 200 MG tablet Take 1 tablet (200 mg) by mouth 2 times daily. 180 tablet 0 cetirizine (ZyrTEC) 10 MG tablet Take 1 tablet (10 mg) by mouth if needed each day for allergies. 90 tablet 0 fluticasone (Flonase) 50 MCG/ACT nasal spray Administer 2 sprays into each nostril Once per day. 16g 11 lidocaine (Lidoderm) 5 % patch Apply 1 patch topically Once per day. 30 patch 2 lisdexamfetamine (Vyvanse) 50 MG capsule Take 1 capsule (50 mg) by mouth in the morning for 28 days. 28 capsule 0 methylphenidate (Ritalin) 10 MG tablet Take 1 tablet (10 mg) by mouth at noon and 1 tablet (10 mg) in the evening. Do all this for 28 days. 56 tablet 0 propranolol (Inderal) 40 MG tablet Take 1 tablet (40 mg) by mouth 2 times daily. 180 tablet 0 sertraline (Zoloft) 100 MG tablet Take 1 tablet (100 mg) by mouth Once per day. 90 tablet 0 tamsulosin (Flomax) 0.4 MG 24 hr capsule Take 1 capsule (0.4 mg) by mouth Once per day. 90 capsule 0 traZODone (Desyrel) 50 MG tablet Take 1 tablet (50 mg) by mouth if needed at bedtime for sleep. 90 tablet 0 gabapentin (Neurontin) 600 MG tablet Take 1 tablet (600 mg) by mouth 3 times daily. 90 tablet 0 nicotine polacrilex (Nicorette) 4 MG gum Chew 1 each (4 mg) if needed for smoking cessation. 100 each 11 tiZANidine (Zanaflex) 4 MG tablet Take 1 tablet (4 mg) by mouth 3 times daily for 20 days. 60 tablet 0 No current facility-administered medications for this visit. PAST MEDICAL, SURGICAL, SOCIAL AND FAMILY HISTORY: Reviewed and updated MEDICATIONS AND ALLERGIES: Reviewed and updated ROS: Ten system review negative, with the exception of those noted in the HPI and A&P PHYSICAL EXAMINATION: VITAL SIGNS: GENERAL: Well-appearing male in no acute distress. HEENT: No scleral icterus. Moist mucous membranes. No nasal discharge. PULMONARY: Breathing comfortably on room air. MUSCULOSKELETAL: Gait appropriate and symmetric. EXTREMITIES: Warm and well perfused. NEUROLOGIC: Motor function grossly intact. Imaging results: Imaging of the whole leg, knee, ankle, spine, and hips was performed previously. Results showed early degenerative changes in the knee, remote trauma in the ankle, and no significantdegenerative changes in the spine. No significant nerve impact in the low back spine. L5 pars defect without spondylolisthesis noted. Test results: Colon cancer screening test (Cologuard) ordered for home use. ASSESSMENT AND PLAN: Diagnoses and all orders for this visit: Colon cancer screening - Cologuard?? colon cancer screening; Future Right hip pain - XR Hip 2 or 3 Views Right; Future - XR Knee 4+ Views Right; Future Right hip crepitus - XR Hip 2 or 3 Views Right; Future - XR Knee 4+ Views Right; Future Need for vaccination - Influenza, MDCK, trivalent, preservative - Moderna COVID-19 Vaccine 12+ Urinary urgency and incontinence - Urinary urgency and incontinence have been ongoing for about 15 years. The urologist noted an increase in size but no physical issues other than the size increase. - Continue taking Flomax. Consider cystoscopy to assess bladder pressure and function. Transition from Methadone to Subutex - Transition from Methadone to Subutex is causing difficulties, including pain, nausea, and diarrhea. - Provide Imodium for diarrhea. Continue monitoring the transition. Leg pain and mobility issues - Leg pain, particularly in the knee and ankle, with tripping and difficulty in mobility. Previous imaging showed early degenerative changes in the knee and remote trauma in the ankle. - Order updated imaging for the knee and hip. Consider a medicated hip x-ray. Vaccinations - Flu and COVID vaccinations are due. - Administer flu and COVID vaccines today. Colon cancer screening - Due for colon cancer screening. - Order Cologuard test for at-home completion. Social Security and housing support - Difficulty with mobility and daily activities impacting ability to work. Currently sheltered homeless. - Support Section 8 voucher application. Assist with Social Security paperwork. documented in this encounter Plan of Treatment Upcoming Encounters Date Type Department Care Team (Late st Contact Info) Description 12/21/2024 10:40 AM EST Office Visit [place] [facility] [address] [place] [address] Roberta Wilde MD [address] [place] [address] Pending Results Name Type Priority Associated Diagnoses Date /Time Cologuard?? colon cancer screening Lab Routine Colon cancer screening 11/24/2024 1:04 PM EST Scheduled Orders Name Type Priority Associated Diagnoses Orde r Schedule Cologuard?? colon cancer screening Lab Routine Colon cancer screening Expected: 11/25/2024 (Approximate), Expires: 11/11/2025 documented as of this encounter Procedures Procedure Name Priority Date/Time Associated Diagnosis Comments XR KNEE 4+ VIEWS RIGHT Routine 11/29/2024 Right hip pain Right hip crepitus XR HIP 2 OR 3 VIEWS RIGHT Routine 11/29/2024 Right hip pain Right hip crepitus documented in this encounter Results * XR Knee 4+ Views Right (11/29/2024) Anatomical Region Laterality Modality Lower Extremities, Knee Right Radiogra phic Imaging us Roberta Wilde MD IMG XR PROCEDURES Final Result * XR Hip 2 or 3 Views Right (11/29/2024) Anatomical Region Laterality Modality Lower Extremities, Hip Right Radiograp hic Imaging us Roberta Wilde MD IMG XR PROCEDURES Final Result documented in this encounter Visit Diagnoses Diagnosis Colon cancer screening- Primary Special screening for malignant neoplasms, colon Right hip pain Pain in joint, pelvic region and thigh Right hip crepitus Need for vaccination Need for prophylactic vaccination and inoculation against unspecified single disease documented in this encounter Care Teams Homicide Investigator Relationship Specialty Start Date End Date Roberta Wilde MD [address] [place] [id number] PCP - General Family Medicine 12/03/22 documented as of this encounter
--- OUTSIDE RECORDS SUMMARY | 2024-11-30 11:39 | XMS_ITS | Encounter Summary ---
Author Organization [facility] [employer] Address [address] [place] [address] Care Team Providers Care Take Away Worker Name Role Phone Roberta Wilde MD Primary Care Provider [phone] Reason for Visit * Reason Onset Date Comments Med Refill 07/30/2023 Encounter Details Date Type Department Care Team (Late st Contact Info) Description 07/30/2023 Refill [facility] [address] [place] [address] Keri Davis FNP [address] [place] [address] ADHD, impulsive type Social History Tobacco Use [...] encounter Miscellaneous Notes * Telephone Encounter - CAMPOS Gann - 07/30/2023 7:41 PM EDT Already sent by Dr. Wilde. documented in this encounter Plan of Treatment Upcoming Encounters Date Type Department Care Team (Late st Contact Info) Description 12/21/2024 10:40 AM EST Office Visit [facility] MED[facility] [address] [place] [address] Roberta Wilde MD [address] [place] [address] documented as of this encounter Visit Diagnoses Diagnosis ADHD, impulsive type documented in this encounter Care Teams Take Away Worker Relationship Specialty Start Date End Date Roberta Wilde MD [address] [place] [address] PCP - General Family Medicine 12/03/22 documented as of this encounter
--- OUTSIDE RECORDS SUMMARY | 2024-11-30 11:39 | XMS_ITS | Encounter Summary ---
Author Organization [employer] Address [address] [place] [address] [address] [place] [address] Care Team Providers Care Dental Service Chief Name Role Phone Roberta Wilde MD Primary Care Provider [phone] Reason for Visit * Reason Onset Date Comments PT-1 08/24/2024 Encounter Details Date Type Department Care Team ([facility] st Contact Info) Description 08/24/2024 Telephone [facility] MED[facility] [address] [place], [place] [phone] Roberta Wilde MD [address] [place] [address] PT-1 Social History Tobacco Use Types Packs/Day [...] encounter Miscellaneous Notes * Telephone Encounter - CORRINE Candelario - 08/24/2024 11:36 AM EDT Active PT-1 for this pt for [address] approved 08/17/24, exp 08/17/25. * Telephone Encounter - Marina Flores - 08/24/2024 10:44 AM EDT Pt-1 Request/Renewal: Letter from [facility] Name of Treating Provider/Treating Facility: [facility] Address of Treating Facility: [address] [place] [address] Number of Visits Requested: N/A Patient's Physical Address: [address] [place] [address] Date of Expiration: documented in this encounter Plan of Treatment Upcoming Encounters Date Type Department Care Team (Late st Contact Info) Description 12/21/2024 10:40 AM EST Office Visit [place] [facility] [address] [place] [address] Roberta Wilde MD [address] [place] [address] documented as of this encounter Visit Diagnoses Not on filedocumented in this encounter Care Teams Dental Service Chief Relationship Specialty Start Date End Date Roberta Wilde MD [address] [place] [address] PCP - General Family Medicine 12/03/22 documented as of this encounter
--- OUTSIDE RECORDS SUMMARY | 2024-11-30 11:39 | XMS_ITS | Encounter Summary ---
Author Organization [employer] Address [address] [place] [address] [address], [place] [address] Care Team Providers Care Cell Cleaner Name Role Phone Roberta Wilde MD Primary Care Provider [phone] Reason for Visit * Reason Onset Date Comments PT-1 Problem 10/21/2024 Encounter Details Date Type Department Care Team (Late st Contact Info) Description 10/21/2024 Telephone [facility] MED[facility] [address] [place] [address] Roberta Wilde MD [address] [place] [address] PT-1 Problem Social History Tobacco Use Types Packs/Day Years [...] * Telephone Encounter - CORRINE Candelario - 10/21/2024 9:56 AM EST Per AG, this is all handled, spoke to pt he is aware. * Telephone Encounter - Rosa Morrell - 10/21/2024 9:46 AM EST Patient called and left a message stating that he got a letter in the mail stating that Dr. Wilde at [address] [place] [address] was not an acceptable drop point for a PT1. Would like a call back. documented in this encounter Plan of Treatment Upcoming Encounters Date Type Department Care Team (Late st Contact Info) Description 12/21/2024 10:40 AM EST Office Visit [place] [facility] [address] [place], [place] [phone] Roberta Wilde MD [address] [place] [address] documented as of this encounter Visit Diagnoses Not on filedocumented in this encounter Care Teams Cell Cleaner Relationship Specialty Start Date End Date Roberta Wilde MD [address] [place] [address] PCP - General Family Medicine 12/03/22 documented as of this encounter
--- OUTSIDE RECORDS SUMMARY | 2024-11-30 11:39 | XMS_ITS | Encounter Summary ---
Author Organization [facility] [employer] Address [address] [place] [address] [place], [place] [address] Care Team Providers Care Putty Patcher Name Role Phone Roberta Wilde MD Primary Care Provider [phone] Encounter Details Date Type Department Care Team (Late Contact Info) Description 09/09/2024 Orders Only [place] [facility] [address] [place] [address] Roberta Wilde MD [address] [place] [address] Social History Tobacco Use Types Packs/Day Years [...] Description 12/21/2024 10:40 AM EST Office Visit [facility] [address] [place] [address] Roberta Wilde MD [address] [place] [address] documented as of this encounter Procedures Procedure Name Priority Date/Time Associated Diagnosis Comments ECG 12-LEAD Routine 09/09/2024 2:22 PM EDT documented in this encounter Results * ECG 12 lead (09/09/2024 2:22 PM EDT) us Roberta Wilde MD ECG ORDERABLES Final Result documented in this encounter Visit Diagnoses Not on filedocumented in this encounter Care Teams Putty Patcher Relationship Specialty Start Date End Date Roberta Wilde MD [address] [place] [address] PCP - General Family Medicine 12/03/22 documented as of this encounter
--- OUTSIDE RECORDS SUMMARY | 2024-11-30 11:39 | XMS_ITS | Encounter Summary ---
Author Organization [employer] Address [address] [place] [address] [address] [place] [address] Care Team Providers Care Ice Cream Freezer Helper Name Role Phone Roberta Wilde MD Primary Care Provider [phone] Encounter Details Date Type Department Care Team (Late st Contact Info) Description 10/10/2024 Orders Only [place] [facility] [address] [place] [address] Roberta Wilde MD [address] [place] [address] Antisocial personality disorder (CMS/HCC); Abnormal prostate specific antigen (PSA); Impulse control disorder; Chronic midline low back pain with bilateral sciatica; Alcohol use disorder, severe, in early remission (CMS/HCC); Allergic rhinitis, unspecified seasonality, unspecified trigger Social History Tobacco Use Types Packs/Day Years [...] 12/21/2024 10:40 AM EST Office Visit [place] [facility] [address] [place] [address] Roberta Wilde MD [address] [place] [address] documented as of this encounter Visit Diagnoses Diagnosis Antisocial personality disorder (CMS/HCC) Antisocial personality disorder Abnormal prostate specific antigen (PSA) Impulse control disorder Impulse control disorder, unspecified Chronic midline low back pain with bilateral sciatica Alcohol use disorder, severe, in early remission (CMS/HCC) Allergic rhinitis, unspecified seasonality, unspecified trigger documented in this encounter Care Teams Ice Cream Freezer Helper Relationship Specialty Start Date End Date Roberta Wilde MD [address] [place] [address] PCP - General Family Medicine 12/03/22 documented as of this encounter
--- OUTSIDE RECORDS SUMMARY | 2024-11-30 11:39 | XMS_ITS | Encounter Summary ---
Author Organization [employer] Address [address] [place] [address] 7 [place] [address] Care Team Providers Care Double Corner Cutter Name Role Phone Roberta Wilde MD Primary Care Provider [phone] Reason for Visit * Reason Comments Care Management Encounter Details Date Type Department Care Team (Late st Contact Info) Description 09/13/2024 Telephone [place] [facility] [address] [place] [address] Mayra Barry Care Management Social History Tobacco Use Types Packs/Day [...] Description 12/21/2024 10:40 AM EST Office Visit [place] [facility] [address] [place] [address] Roberta Wilde MD [address] [place] [address] documented as of this encounter Visit Diagnoses Not on filedocumented in this encounter Care Teams Double Corner Cutter Relationship Specialty Start Date End Date Roberta Wilde MD [address] [place] [address] PCP - General Family Medicine 12/03/22 documented as of this encounter
--- OUTSIDE RECORDS SUMMARY | 2024-11-30 11:39 | XMS_ITS | Encounter Summary ---
Author Organization [employer] Address [address] [place] [address] [place] [address] Care Team Providers Care Meter And Service Line Inspector Name Role Phone Roberta Wilde MD Primary Care Provider [phone] Reason for Visit * Reason Onset Date Comments PT-1 08/17/2024 Encounter Details Date Type Department Care Team (Late st Contact Info) Description 08/17/2024 Telephone [facility] [address] [place], [place] [phone] Roberta Wilde MD [address] [place] [address] PT-1 Social History Tobacco Use Types Packs/Day [...] * Telephone Encounter - CORRINE Candelario - 08/17/2024 4:36 PM EDT PT-1 [id number] authorized * Telephone Encounter - CORRINE Candelario - 08/17/2024 11:30 AM EDT PT-1 request is submitted- [facility] PT-1 Request Number [id number] is Pending * Telephone Encounter - Marina Flores - 08/17/2024 10:51 AM EDT Pt-1 Request/Renewal: Letter From [facility] Name of Treating Provider/Treating Facility: [facility] Address of Treating Facility: [address] [place] [address] Number of Visits Requested: N/A Patient's Physical Address: [facility] [address] Letter has [address] [place] [address] Date of Expiration: 09/11/2024 documented in this encounter Plan of Treatment Upcoming Encounters Date Type Department Care Team (Late st Contact Info) Description 12/21/2024 10:40 AM EST Office Visit [place] [facility] [address] [place] [address] Roberta Wilde MD [address] [place] [address] documented as of this encounter Visit Diagnoses Not on filedocumented in this encounter Care Teams Meter And Service Line Inspector Relationship Specialty Start Date End Date Roberta Wilde MD [address] [place] [address] PCP - General Family Medicine 12/03/22 documented as of this encounter
--- OUTSIDE RECORDS SUMMARY | 2024-11-30 11:40 | XMS_ITS | Clinical Summary ---
Author Organization [facility] Address [address] [place] [address] Care Team Providers Care Down Filler Name Role Phone Moises Castellanos Primary Care Provider Medications propranoloL (INDERAL) 40 mg tablet Take 1 tablet (40 mg total) by mouth once a day. 90 tablet 1 Active cetirizine 10 mg capsule Take 10 mg by mouth once a day. 30 capsule 1 Active gabapentin (NEURONTIN) 600 mg tablet Take 1 tablet (600 mg total) by mouth 2 times a day. 70 capsule 1 Active fluticasone propionate (FLONASE) 50 mcg/actuation nasal spray Administer 2 sprays into each nostril once a day. 16 g 1 Active tiZANidine (ZANAFLEX) 4 mg tablet Take 1 tablet (4 mg total) by mouth nightly as needed for muscle spasms. 30 tablet 1 Active Social History Tobacco Use Types Packs/Day Years Used Date Smoking Tobacco: Never Assessed Sex and Gender Information Value Date Recorded Sex Assigned at Not on file Legal Sex Male 10:49 PM EST Gender Identity Not on file Sexual Orientation Not on file Last Filed Vital Signs Vital Sign Reading Time Taken Comments Blood Pressure 159/109 10/20/2021 12:54 AM EST Pulse 80 10/20/2021 12:54 AM EST Temperature 36.8 ??C (98.3 ??F) 10/19/2021 11:[address] Respiratory Rate 16 10/20/2021 12:54 AM EST Oxygen Saturation 98% 10/20/2021 12:54 AM EST Inhaled Oxygen Concentration - - Weight 95.3 kg (210 lb) 10/19/2021 11:04 PM EST Height 167.6 cm (5' 6 ) 10/19/2021 11:04 PM EST Body Mass Index 33.89 10/19/2021 11:04 PM EST Plan of Treatment Health Maintenance Due Date Last Done Comments Cologuard 1973 Colon Cancer Screening 1973 Colonoscopy 1973 FOBT / Fit Test 1973 HIV Screening 1973 Hepatitis C Screening 1973 Sigmoidoscopy 1973 Hepatitis B Vaccines (1 of 3 - 19+ 3-dose series) 1992 DTaP,Tdap,and Td Vaccines (2 - Td or Tdap) 01/19/2023 01/19/2013 Zoster Vaccines (1 of 2) 2023 Depression Screening and Follow-Up 11/09/2023 COVID-19 Vaccine (3 - 2023-2 5 season) 2024 04/28/2021, 04/07/2021 Influenza Vaccine (#1) 2024 8, 09/02/2017, 09/17/2016 Alcohol/Substance Use Screening 11/09/2024 RSV Vaccine (60+ years old a nd patients) (1 - 1-dose 75+ series) 2048 Pneumococcal Vaccine: Pediatric (0-5 Years) and At-Risk Patients (6-64 Years) Aged Out 08/15/2014 No longer eligible based on patient's age to complete this topic [facility] [place] [address] Care Teams Down Filler Relationship Specialty Start Date End Date Moises Castellanos [address] [place] [address] PCP - General Internal Medicine 10/09/21
--- OUTSIDE RECORDS SUMMARY | 2024-11-30 11:40 | XMS_ITS | Referral Summary ---
Author Organization [facility] Address [address] [place] [address] Care Team Providers Care Water Registrar Name Role Phone Moises Castellanos Primary Care Provider [phone] Medications propranoloL (INDERAL) 40 mg tablet Take [...] 10/19/2021 11:04 PM EST Plan of Treatment Not on file Insurance [place] [id number] Care Teams Water Registrar Relationship Specialty Start Date End Date Moises Casetllanos [facility] [place] [address] PCP - General Internal Medicine 10/09/21
== END 2024-11-30 11:36 | disposition home or self-care (01) ==
PROVIDERS: PCP Family Medicine; Visit Provider Nurse Practitioner Psychiatric/Mental Health
DX: F11.20 Opioid dependence, uncomplicated (principal)
CPT/HCPCS: 99213

== ENCOUNTER → 2024-11-30 10:29 | Outpatient (BNVA) | payer MEDICAID, SELFPAY | PROVIDERS: PCP Family Medicine; Visit Provider Nurse Practitioner Psychiatric/Mental Health | DX: F11.20 Opioid dependence, uncomplicated (principal); Z51.81 Encounter for therapeutic drug level monitoring | CPT/HCPCS: 99212 ==

== ENCOUNTER 2024-12-14 08:57 | Outpatient (AMB) | payer OTHER, SELFPAY ==
--- NOTE | 2024-12-14 08:58 | A.OFFVISCC_ITS ---
Intake Visit Reasons: MAT Tele Allergies codeine [CODEINE] Allergy (Unknown, Verified 10/14/24 08:09) CONSTIPATION diazepam [From Valium] Adverse Reaction (Verified 10/14/24 08:09) Hypertension HPI HPI MAT Tele: Details: Patient presents for follow up via telehealth Currently prescribed Suboxone 8mg QID Tolerating current dose --no longer experiencing body aches Feels it is very helpful, particularly with urges Reports he now has a place to stay Stable and has transportation set up Has been spending time with his son Review of Systems Const Reports as per HPI and Reports no additional complaints Telehealth Telehealth Telehealth Platform: Telephone Location of provider rendering services: practice address Location of patient: address on file Patient Identification confirmed using: Name, : Yes Telehealth method: voice only Patient verbally consented to treatment: Yes Patient verbally consented to billing insurance company: Yes Minutes spent on Phone/Video with Pt.: 15 PFSH Medical History Substance abuse HTN (hypertension) Alcoholism Social History Alcohol intake: current Patient Tobacco Use Status: Current someday Tobacco user Substance Use Type: Crack/Cocaine Assessment & Plan Assessment & Plan (1) Opioid use disorder, severe, dependence: Code(s): F11.20 - Opioid dependence, uncomplicated Category: Medical Plan: * continue suboxone at current dose * follow up 2 weeks Medications: Refilled buprenorphine HCl 8 mg sublingual QID 56 tabs 0RF
--- OUTSIDE RECORDS SUMMARY | 2024-12-14 09:10 | XMS_ITS | Encounter Summary ---
Author Organization [employer] Address [address] [place] [address] 7 [place] [address] Care Team Providers Care Raw Stock Drier Tender Name Role Phone Roberta Wilde MD Primary Care Provider [phone] Reason for Visit * Reason Onset Date Comments Med Refill 11/23/2024 Encounter Details Date Type Department Care Team (Late st Contact Info) Description 11/23/2024 Refill [place] [facility] [address] [place] [address] Roberta Wilde MD [address] [place] [address] Abnormal prostate specific antigen (PSA); Chronic midline [...] 12/21/2024 10:40 AM EST Office Visit [place] [facility] [address] [place] [address] Roberta Wilde MD [address] [place] [address] documented as of this encounter Visit Diagnoses Diagnosis Abnormal prostate specific antigen (PSA) Chronic midline low back pain with bilateral sciatica Alcohol use disorder, severe, in early remission (CMS/HCC) Antisocial personality disorder (CMS/HCC) Antisocial personality disorder ADHD, impulsive type Impulse control disorder Impulse control disorder, unspecified documented in this encounter Care Teams Raw Stock Drier Tender Relationship Specialty Start Date End Date Roberta Wilde MD [address] [place] [address] PCP - General Family Medicine 12/03/22 documented as of this encounter
--- OUTSIDE RECORDS SUMMARY | 2024-12-14 09:10 | XMS_ITS | Encounter Summary ---
Author Organization [employer] Address [address] [place] [address] [address] [place] [address] Care Team Providers Care Medical Technologist Microbiology Name Role Phone Roberta Wilde MD Primary Care Provider [phone] Encounter Details Date Type Department Care Team (Late st Contact Info) Description 10/14/2024 Orders Only [facility] [address] [place] [address] Roberta Wilde MD [address] [place] [address] Social History Tobacco Use Types Packs/Day Years [...] 10:40 AM EST Office Visit Ana [facility] [address] [place] [address] Roberta Wilde MD [address] [place] [address] documented as of this encounter Procedures Procedure [...] on filedocumented in this encounter Care Teams Medical Technologist Microbiology Relationship Specialty Start Date End Date Roberta Wilde MD [address] [place] [address] PCP - General Family Medicine 12/03/22 documented as of this encounter
--- OUTSIDE RECORDS SUMMARY | 2024-12-14 09:10 | XMS_ITS | Encounter Summary ---
Author Organization [employer] Address [address] [facility] 7 [place] [address] Care Team Providers Care Product Merchandiser Name Role Phone Roberta Wilde MD Primary Care Provider Reason for Visit * Reason Comments Case Management Encounter Details Date Type Department Care Team (Babak st Contact Info) Description 10/07/2024 Telephone [facility] [address] [place] [address] JhonnyFebruary Case Management Social History [...] Description 12/21/2024 10:40 AM EST Office Visit [place] [facility] [address] [place] [address] Roberta Wilde MD [address] [place] [address] documented as of this encounter Visit Diagnoses Not on filedocumented in this encounter Care Teams Product Merchandiser Relationship Specialty Start Date End Date Roberta Wilde MD [address] [place] [address] PCP - General Family Medicine 12/03/22 documented as of this encounter
--- OUTSIDE RECORDS SUMMARY | 2024-12-14 09:10 | XMS_ITS | Encounter Summary ---
Author Organization [employer] Address [address] [place] [address] [place] [address] Care Team Providers Care Base Cloth Inspector Name Role Phone Roberta Wilde MD Primary Care Provider [phone] Reason for Visit * Reason Onset Date Comments PT1 11/24/2024 Encounter Details Date Type Department Care Team (Late st Contact Info) Description 11/24/2024 Telephone [facility] [address] [place] [address] Roberta Wilde MD [address] [place] [address] PT1 Social History Tobacco Use Types Packs/Day [...] Starr Johnson - 11/24/2024 3:38 PM EST [id number] Ludwig Carson - 1975 [address] [facility] [address] Clinical & Support Options, [facility] [address] [place] [address] [address] 11/24/2025 Frequency - 4 per Week - Duration 12 Month(s) Escort:Yes Wheelchair:No Transportation Phone: [employer] [phone] Authorized * Telephone Encounter - Starr Johnson - 11/24/2024 3:28 PM EST PT-1 Request Number [id number] is Pending * Telephone Encounter - Magi Lee - 11/24/2024 2:45 PM EST Pt-1 Request/Renewal: request Name of Treating Provider/Treating Facility: [facility] Address of Treating Facility: [address] [place] [address] Number of Visits Requested: 4 visit a week Patient's Physical Address: [address] [place], [place] [address]Mitch ESPINOZA [facility] [address] Date of Upcoming Appt: 12/07 No oxygen No wheelchair No filemaker developer documented in this encounter Plan of Treatment Upcoming Encounters Date Type Department Care Team (Late st Contact Info) Description 12/21/2024 10:40 AM EST Office Visit [place] [facility] [address] [place] [address] Roberta Wilde MD [address] [facility] [place] [address] documented as of this encounter Visit Diagnoses Not on filedocumented in this encounter Care Teams Base Cloth Inspector Relationship Specialty Start Date End Date Roberta Wilde MD [address] [place] [address] PCP - General Family Medicine 12/03/22 documented as of this encounter
--- OUTSIDE RECORDS SUMMARY | 2024-12-14 09:10 | XMS_ITS | Encounter Summary ---
Author Organization [employer] Address [address] [place] [address] [address] [place] [address] Care Team Providers Care Peripheral Equipment Operator Name Role Phone Roberta Wilde MD Primary Care Provider [phone] Reason for Visit * Reason Comments Med Refill Encounter Details Date Type Department Care Team (Late st Contact Info) Description 09/28/2024 Refill [place] [facility] [address] [place] [address] Roberta Wilde MD [address] [place] [address] Chronic midline low back pain with bilateral [...] AM EST Office Visit Ana [facility] [address] [place] [address] Roberta Wilde MD [address] [place] [address] documented as of this encounter Visit Diagnoses Diagnosis Chronic midline low back pain with bilateral sciatica Alcohol use disorder, severe, in early remission (CMS/HCC) Antisocial personality disorder (CMS/HCC) Antisocial personality disorder documented in this encounter Care Teams Peripheral Equipment Operator Relationship Specialty Start Date End Date Roberta Wilde MD [address] [place] [address] PCP - General Family Medicine 12/03/22 documented as of this encounter
--- OUTSIDE RECORDS SUMMARY | 2024-12-14 09:10 | XMS_ITS | Encounter Summary ---
Author Organization [facility] [employer] Address [address] [place] [address] Care Team Providers Care Account Management Specialist Name Role Phone Roberta Wilde MD Primary Care Provider [phone] Reason for Visit * Reason Onset Date Comments Med Refill 07/30/2023 Encounter Details Date Type Department Care Team (Late st Contact Info) Description 07/30/2023 Refill [facility] [address] [place] [address] Keri Davis FNP [address] [place] [address] ADHD, impulsive type Social History Tobacco Use [...] Description 12/21/2024 10:40 AM EST Office Visit [facility] [address] [place] [address] Roberta Wilde MD [address] [place] [address] documented as of this encounter Visit Diagnoses Diagnosis ADHD, impulsive type documented in this encounter Care Teams Account Management Specialist Relationship Specialty Start Date End Date Roberta Wilde MD [address] [place] [address] PCP - General Family Medicine 12/03/22 documented as of this encounter
--- OUTSIDE RECORDS SUMMARY | 2024-12-14 09:10 | XMS_ITS | Encounter Summary ---
Author Organization [employer] Address [address] [place] [address] [address] [place] [address] Care Team Providers Care Coater Slate Name Role Phone Roberta Wilde MD Primary Care Provider [phone] Reason for Visit * Reason Onset Date Comments PT-1 11/11/2024 Encounter Details Date Type Department Care Team (Late st Contact Info) Description 11/11/2024 Telephone [place] [facility] [address] [place] [address] Roberta Wilde MD [address] [place] [address] PT-1 Social History Tobacco Use Types Packs/Day [...] 11/15/2024 11:03 AM EST PT-1 Request Number [id number] is authorized. * Telephone Encounter - Starr Johnson - 11/14/2024 2:04 PM EST PT-1 Request Number [id number] is Pending * Telephone Encounter - Shilpa Harrington - 11/11/2024 10:11 AM EST Pt would like to make sure he has PT-1 to [place] visit if & when it is scheduled documented in this encounter Plan of Treatment Upcoming Encounters Date Type Department Care Team (Late st Contact Info) Description 12/21/2024 10:40 AM EST Office Visit [place] [facility] [address] [place] [address] Roberta Wilde MD [address] [place] [address] documented as of this encounter Visit Diagnoses Not on filedocumented in this encounter Care Teams Coater Slate Relationship Specialty Start Date End Date Roberta Wilde MD [address] [place], [place] PCP - General Family Medicine 12/03/22 documented as of this encounter
--- OUTSIDE RECORDS SUMMARY | 2024-12-14 09:10 | XMS_ITS | Clinical Summary ---
Author Organization [employer] Address [address] [place] [address] 7t [place] [address] Care Team Providers Care Extension Service Supervisor Name Role Phone Roberta Wilde MD Primary Care Provider [phone] Allergies Active Allergy Reactions Criticality Noted Date [...] daily. 180 tablet 10/26/20 24 025 Active tamsulosin (Flomax) 0.4 MG 24 hr capsuleIndicati ons:Abnormal prostate specific antigen (PSA) Take 1 capsule (0.4 mg) by mouth Once per day. 90 capsule 11/23/19 25 025 Active methylphenidate (Ritalin) 10 MG tabletIndicatio ns:Antisocial personality disorder (CMS/HCC),ADHD, impulsive type,Impulse control disorder Take 1 tablet (10 mg) by mouth at noon and 1 tablet (10 mg) in the evening. Do all this for 28 days. 56 tablet 12/02/19 25 025 Active lisdexamfetamin e (Vyvanse) 50 MG capsuleIndicati ons:Antisocial personality disorder (CMS/HCC),ADHD, impulsive type Take 1 capsule (50 mg) by mouth in the morning for 20 days. 20 capsule 12/10/19 25 025 Active acetaminophen (Tylenol) 500 MG [...] eorder (will not trigger notification to Pharmacy)) methylphenidate (Ritalin) 10 MG tabletIndicatio ns:Antisocial personality disorder (CMS/HCC),ADHD, impulsive type,Impulse control disorder Take 1 tablet (10 mg) by mouth at noon and 1 tablet (10 mg) in the evening. Do all this for 28 days. 56 tablet 10/26/20 24 025 Discontinued(R eorder (will not [...] 9 days. 9 capsule 11/23/19 25 025 Discontinued(R eorder (will not trigger notification to Pharmacy)) lisdexamfetamin e (Vyvanse) 50 MG capsuleIndicati ons:Antisocial personality disorder (CMS/HCC),ADHD, impulsive type Take 1 capsule (50 mg) by mouth in the morning for 9 days. 9 capsule 12/02/19 25 025 Discontinued(R eorder (will not trigger notification to Pharmacy)) lisdexamfetamin e (Vyvanse) 50 MG capsuleIndicati ons:Antisocial personality disorder (CMS/HCC),ADHD, impulsive type Take 1 capsule (50 mg) by mouth in the morning for 20 days. Do not start before December 11, 2024. 20 capsule 12/11/19 25 025 Discontinued(R eorder (will not trigger notification [...] Encounters Date Type Department Care Team Description 12/09/2024 Telephone [facility] MEDICAL [address] [place] [address] Roberta Wilde MD Medication Problem; Med Refill 12/08/2024 Telephone [facility] [address] [place] [address] Roberta Wilde MD PT1 12/06/[address] [address] Roberta Wilde MD PT-1 12/06/[address] [address] Roberta Wilde MD Antisocial personality disorder (CMS/HCC); ADHD, impulsive type 12/01/2024 Refill [facility] [address] [place] [address] Roberta Wilde MD Antisocial personality disorder (CMS/HCC); ADHD, impulsive type; Impulse control disorder 11/24/[address] [address] Roberta Wilde MD PT1 11/23/[address] [address] Roberta Wilde MD Abnormal prostate specific antigen (PSA); Chronic midline low back pain with bilateral sciatica; Alcohol use disorder, severe, in early remission (CMS/HCC); Antisocial personality disorder (CMS/HCC); ADHD, impulsive type; Impulse control disorder 11/11/2024 9:20 AM EST Office Visit [address] [address] Roberta Wilde MD Colon cancer screening (Primary Dx); Right hip pain; Right hip crepitus; Need for vaccination 11/11/[address] [address] Roberta Wilde MD PT-1 11/09/2024 Travel 10/25/[address] [address] Roberta Wilde MD Antisocial personality disorder (CMS/HCC); ADHD, impulsive type; Impulse control disorder 10/21/[address] [address] Roberta Wilde MD PT-1 Problem 10/15/2024 Travel 10/14/2024 Orders Only [facility] [address] [place] [address] Roberta Wilde MD 10/14/[address] [address] Roberta Wilde MD PT1 10/11/[address] [address] Roberta Wilde MD PT1 10/11/[address] [address] Roberta Wilde MD Med Refill 10/11/[address] [address] Roberta Wilde MD Chronic midline low back pain with bilateral sciatica; Allergic rhinitis, unspecified seasonality, unspecified trigger; Mild intermittent asthma, unspecified whether complicated 10/10/2024 Patient Outreach [address] [address] Leonila Shipman Med Management 10/10/2024 Orders Only [address] [address] Roberta Wilde MD Antisocial personality disorder (CMS/HCC); Abnormal prostate specific antigen (PSA); Impulse control disorder; Chronic midline low back pain with bilateral sciatica; Alcohol use disorder, severe, in early remission (CMS/HCC); Allergic rhinitis, unspecified seasonality, unspecified trigger 10/07/[address] [phone] Mayra Barry Case Management 10/07/2024 Telephone [facility] [address] [place] [address] Roberta Wilde MD Prior Authorization 10/05/2024 Patient Outreach [address] [id number] Alee Cramer Med Management 09/30/[address] [address] Roberta Wilde MD Prior Authorization (No PA needed for generic vyvanse) 09/29/2024 Patient Outreach [address] [address] Leonila Shpiman Med Management 09/28/[address] [address] Roberta Wilde MD Chronic midline low back pain with bilateral sciatica; Alcohol use disorder, severe, in early remission (CMS/HCC); Antisocial personality disorder (CMS/HCC) 09/27/[address] [address] Roberta Wilde MD Antisocial personality disorder ([facility]/HCC); ADHD, impulsive type 09/26/[address] [address] Roberta Wilde MD PT-1 09/22/2024 Patient Outreach [address] [address] Leonila Shipman 09/21/2024 4:00 PM EST Telemedicine [address] [address] Roberta Wilde MD Allergic rhinitis, unspecified seasonality, unspecified trigger; Antisocial personality disorder ([facility]/HCC); ADHD, impulsive type; Impulse control disorder; Chronic midline low back pain with bilateral sciatica; Alcohol use disorder, severe, in early remission (CMS/HCC); Mild intermittent asthma, unspecified whether complicated 09/21/[address] [address] Roberta Wilde MD Med Refill 09/20/[address] [address] Roberta Wilde MD PT1 09/20/[address] [address] Roberta Wilde MD PT1 09/20/2024 Orders Only [facility] [address] [place] [address] Roberta Wilde MD 09/19/2024 Telephone [facility] MEDICAL [address] [place] [address] Roberta Wilde MD Hospital Follow-up; Dizziness; Care Coordination 09/16/2024 Telephone [facility] [address] [place] [address] Trupti Shay LICSW Care Management 09/16/[address] [facility] MEDICAL [address] [place] [address] Roebrta Wilde MD PT-1 09/15/2024 Patient Outreach [facility] MEDICAL [address] [place] [address] UmbertoLeonila 09/15/2024 Travel 09/13/2024 Telephone [facility] [address] [place] [address] Mayra Barry Care Management from Last 3 Months Immunizations Name Administration [...] t he electric, gas, oil or water [employer] threatened to shut off services in your [...] 12/21/2024 10:40 AM EST Office Visit Ana [facility] MEDICAL [address] [place], [place] [phone] Roberta Wilde MD [address] [place], [place] Health Maintenance Due Date Last Done Comments CT Colonography 1973 Colonoscopy 1973 Depression Screening 1973 FIT 1973 FOBT 1973 HIV Screening 1973 Sigmoidoscopy 1973 Alcohol/Substance Use Screening 1985 Family Planning (PISQ) 1988 Hepatitis C Screening 1991 Hepatitis A Vaccines (1 of 2 - Risk 2-dose series) 1992 Pneumococcal Vaccine: 50+ Years (2 of 2 - PCV) 08/15/2015 08/15/2014 [...] Dental X-Ray: Full Mouth 07/21/2027 07/20/2024, 04/10 Colorectal Cancer Screening 11/22/2027 FIT DNA/Cologuard 11/22/2027 11/22/2024 Lipid Panel 09/28/2029 09/28/2024, 02/04/2023 RSV Patients [...] 11/29/2024 Right hip pain Right hip crepitus LAB COLOGUARD?? COLON CANCER SCREEN Routine 11/22/2024 8:00 AM EST Colon cancer screening CT FACIAL BONES W CONTRAST Routine 10/14/2024 12:51 PM EST AMB REFERRAL TO UROLOGY STAT 09/29/2024 Abnormal prostate specific antigen (PSA) CBC WITH AUTO DIFFERENTIAL Routine 09/28/2024 [facility] current use of antipsychotic medication COMPREHENSIVE METABOLIC PANEL Routine 09/28/2024 [facility] current use of antipsychotic medication LIPID PANEL, STANDARD Routine 09/28/2024 [employer] current use of antipsychotic medication HEMOGLOBIN A1C Routine 09/28/2024 [employer] counter[employer] current use of antipsychotic medication PROSTATE-SPECIFIC ANTIGEN (PSA), FREE:TOTAL RATIO REFLEX Routine 09/28/2024 Abnormal prostate specific antigen (PSA) ECG 12-LEAD Routine 09/18/2024 8:54 AM EST Full PANORAMIC RADIOGRAPHIC IMAGE Routine 07/20/2024 2:30 [...] Knee Right Radiogra phic Imaging us Roberta COLINDRES XR PROCEDURES Final Result * XR Hip 2 or 3 Views Right (11/29/2024) Anatomical Region Laterality Modality Lower Extremities, Hip Right Radiograp hic Imaging us Roberta Bossie MD IMG XR PROCEDURES Final Result * Cologuard?? colon cancer screening (11/22/2024 8:00 AM EST) Cologuard Result Negative Negative 11/30/19 1:19 PM EST [facility] (CLIA #:[id number]) Comment: NEGATIVE TEST RESULT. A negative Cologuard result indicates a low likelihood that a colorectal cancer (CRC) or advanced adenoma (adenomatous polyps with more advanced pre-malignant features) ??is present. The chance that a person with a negative Cologuard test has a colorectal cancer is less than 1 in 1500 (negative predictive value >99.9%) or has an ??advanced adenoma is less than ??5.3% (negative predictive value 94.7%). These data are based on a prospective cross-sectional study of 10,000 individuals at average risk for colorectal cancer who were screened with both Cologuard and colonoscopy. (Beltran Cameron et al, N Engl J Med 2014;370(14):1286- 1297) The normal value (reference range) for this assay is negative. COLOGUARD RE-SCREENING RECOMMENDATION: Periodic colorectal cancer screening is an important part of preventive healthcare for asymptomatic individuals at average risk for colorectal cancer. ??Following a negative Cologuard result, the [place] [employer] Society and U.S. Multi-Society Task Force screening guidelines recommend a Cologuard re-screening interval of 3 years. References: [place] [employer] Guideline for Colorectal Cancer Screening: https://www.cancer.org/cancer/dwqli-irgolh-mocqmd/lqmhqoxfi-oxovquifo-xddolqk/ac s-rec ommendations.html.; Brown STERLING, Liza BECKER, Marion MontesK, Colorectal Cancer Screening: Recommendations for Physicians and Patients from the U.S. Multi-Society Task Force on Colorectal Cancer Screening , Am J Gastroenterology 2017; 112:5121-1936. TEST DESCRIPTION: Composite algorithmic analysis of stool DNA-biomarkers with hemoglobin immunoassay. ?? Quantitative values of individual biomarkers are not reportable and are not associated with individual biomarker result reference ranges. Cologuard is intended for colorectal cancer screening of adults of either sex, 45 years or older, who are at average-risk for colorectal cancer (CRC). Cologuard has been approved for use by the U.S. FDA. The performance of Cologuard was established in a cross sectional study of average-risk adults aged 50-84. Cologuard performance in patients ages 45 to 49 years was estimated by sub-group analysis of near-age groups. Colonoscopies performed for a positive result may find as the most clinically significant lesion: colorectal cancer [4.0%], advanced adenoma (including sessile serrated polyps greater than or equal to 1cm diameter) [20%] or non- advanced adenoma [31%]; or no colorectal neoplasia [45%]. These estimates are derived from a prospective cross-sectional screening study of 10,000 individuals at average risk for colorectal cancer who were screened with both Cologuard and colonoscopy. (Beltran Cameron et al, N Engl J Med 2014;370(14):3566-4260.) Cologuard may produce a false negative or false positive result (no colorectal cancer or precancerous polyp present at colonoscopy follow up). A negative Cologuard test result does not guarantee the absence of CRC or advanced adenoma (pre-cancer). The current Cologuard screening interval is every 3 years. ([place] [employer] Society and U.S. Multi-Society Task Force). Cologuard performance data in a 10,000 patient pivotal study using colonoscopy as the reference method can be accessed at the following location: www.[employer]results. Additional description of the Cologuard test process, warnings and precautions can be found at www.[employer].com. Stool specimen (specimen) 11/22/2024 8:00 AM EST 11/24/2024 1:04 PM EST Roberta Wilde MD LAB MOLECULAR DIAGNOSTICS JANNETH BLANDON Final Result [facility] (CLIA #:[id number]) Rupali [place] [address], * CT FACIAL BONES W CONTRAST (10/14/2024 [...] ORDERABLES Final Res ult Performing Organization Address [facility] Co de Phone Number [facility] [address] [place] [address], [place] [phone] * CBC auto differential (09/28/2024) Blood Venous blood specimen / Unknown us Roberta Wilde MD LAB BLOOD ORDERABLES Final Res ult Performing Organization Address [facility] Co de Phone Number [facility] [address] [place] [address], [place] [phone] * Hemoglobin A1c (09/28/2024) Blood Venous blood specimen / Unknown us Roberta Wilde MD LAB BLOOD ORDERABLES Final Res ult Performing Organization Address [facility] Co de Phone Number [facility] [address] [place] [address], [place] [phone] * Lipid Panel, Standard 36663 (09/28/2024) Blood Venous blood specimen / Unknown us Roberta Wilde MD LAB BLOOD ORDERABLES Final Res ult Performing Organization Address [facility] Co de Phone Number [facility] [address] [place] [address], [place] [phone] * Comprehensive Metabolic Panel (09/28/2024) Blood Venous blood specimen / Unknown Roberta Wilde MD LAB BLOOD ORDERABLES Final Res ult [facility] [address] [place] [address], * ECG 12 lead (09/18/2024 8:54 AM EST) Roberta Wilde MD ECG ORDERABLES Final Result from Last 3 Months Insurance [facility] C3 [facility] MEDICAID STAND [place] Care Teams Extension Service Supervisor Relationship Specialty Start Date End Date Roberta Wilde MD [address] [place] [address] PCP - General Family Medicine 12/03/22
--- OUTSIDE RECORDS SUMMARY | 2024-12-14 09:10 | XMS_ITS | Encounter Summary ---
Author Organization [employer] Address [address] [place] [address] 7[address] [place] [address] Care Team Providers Care Customer Success Representative Name Role Phone Roberta Wilde MD Primary Care Provider [phone] Encounter Details Date Type Department Care Team (Late st Contact Info) Description 10/10/2024 Orders Only [facility] MEDICAL [address] [place] [address] Roberta Wilde MD [address] [place] [address] Antisocial personality disorder (CMS/HCC); Abnormal prostate specific [...] 12/21/2024 10:40 AM EST Office Visit Ana [facility] MED[facility] [address] [place] [address] Roberta Wilde MD [address] [place] [address] documented as of this encounter Visit Diagnoses Diagnosis Antisocial personality disorder (CMS/HCC) Antisocial personality disorder Abnormal prostate specific antigen (PSA) Impulse control disorder Impulse control disorder, unspecified Chronic midline low back pain with bilateral sciatica Alcohol use disorder, severe, in early remission (CMS/HCC) Allergic rhinitis, unspecified seasonality, unspecified trigger documented in this encounter Care Teams Customer Success Representative Relationship Specialty Start Date End Date Roberta Wilde MD [address] [place] [address] PCP - General Family Medicine 12/03/22 documented as of this encounter
--- OUTSIDE RECORDS SUMMARY | 2024-12-14 09:11 | XMS_ITS | Encounter Summary ---
Author Organization [employer] Address [address] [place] [address] [place] [address] Care Team Providers Care Strike On Machine Operator Name Role Phone Roberta Wilde MD Primary Care Provider [phone] Reason for Visit * Reason Onset Date Comments Med Refill 07/24/2023 Encounter Details Date Type Department Care Team (Late st Contact Info) Description 07/24/2023 Refill [facility] MEDICAL [address] [place] [address] Roberta Wilde MD [address] [place] [address] Chronic midline low back pain with bilateral [...] 12/21/2024 10:40 AM EST Office Visit Ana [facility] [address] [place] [address] Roberta Wilde MD [address] [place] [address] documented as of this encounter Visit Diagnoses Diagnosis Chronic midline low back pain with bilateral sciatica Vitamin D deficiency ADHD, impulsive type Antisocial personality disorder (CMS/HCC) Antisocial personality disorder documented in this encounter Care Teams Strike On Machine Operator Relationship Specialty Start Date End Date Roberta Wilde MD [address] [place] [address] PCP - General Family Medicine 12/03/22 documented as of this encounter
--- OUTSIDE RECORDS SUMMARY | 2024-12-14 09:11 | XMS_ITS | Clinical Summary ---
Author Organization [facility] Address [address] [place] [address] Care Team Providers Care Granite Fabricator Name Role Phone Moises Castellanos Primary Care Provider [phone] Medications propranoloL (INDERAL) 40 mg tablet Take [...] patient's age to complete this topic Insurance [place] [place] [id number] Care Teams Granite Fabricator Relationship Specialty Start Date End Date Moises Castellanos [address] [place] [address] PCP - General Internal Medicine 10/09/21
--- OUTSIDE RECORDS SUMMARY | 2024-12-14 09:11 | XMS_ITS | Referral Summary ---
Author Organization [facility] Address [address] [place] [address] Care Team Providers Care Cytology Manager Name Role Phone Moises Castellanos Primary Care Provider [phone] Medications propranoloL (INDERAL) 40 mg tablet Take [...] Plan of Treatment Not on file Insurance [place] [id number] Care Teams Cytology Manager Relationship Specialty Start Date End Date Moises Castellanos [facility] [place] [address] PCP - General Internal Medicine 10/09/21
--- OUTSIDE RECORDS SUMMARY | 2024-12-14 09:12 | XMS_ITS | Encounter Summary ---
Author Organization [employer] Address [address] [place] [address] [place], [place] [address] Care Team Providers Care Piccoloist Name Role Phone Roberta Wilde MD Primary Care Provider [phone] Reason for Visit * Reason Onset Date Comments Medication Problem 12/09/2024 Med Refill 12/09/2024 Encounter Details Date Type Department Care Team (Late st Contact Info) Description 12/09/[address] [facility] MEDICAL [address] [place] [address] Roberta Wilde MD [address] [place] [address] Medication Problem; Med Refill Social History Tobacco Use Types Packs/Day Years [...] t he electric, gas, oil or water [employer] threatened to shut off services in your [...] encounter Miscellaneous Notes * Telephone Encounter - Roberta Wilde MD - 12/10/2024 8:21 AM EST RX sent. * Telephone Encounter - Magi Lee - 12/09/2024 2:03 PM EST Patient called regarding the following medication lisdexamfetamine (Vyvanse) 50 MG capsule Can we please sent this script to the following pharmacy Is it possible to have the patient pick this up on Sunday 12/10 instead of 12/11 as the patient will not be able to get to this pharmacy on Thursday and [facility] as well Please use the following pharmacy [facility] [address] [place] [address] - [place], [place] - [facility] [[id number]] documented in this encounter Plan of Treatment Upcoming Encounters Date Type Department Care Team ([facility] st Contact Info) Description 12/21/2024 10:40 AM EST Office Visit Ana [facility] [address] [place] [address] Roberta Wilde MD [address] [place], [place] documented as of this encounter Visit Diagnoses Diagnosis Antisocial personality disorder (CMS/HCC) Antisocial personality disorder ADHD, impulsive type documented in this encounter Care Teams Piccoloist Relationship Specialty Start Date End Date Roberta Wilde MD [address] [facility] [address] PCP - General Family Medicine 12/03/22 documented as of this encounter
--- OUTSIDE RECORDS SUMMARY | 2024-12-14 09:12 | XMS_ITS | Encounter Summary ---
Author Organization [employer] Address [address] [place] [address] [address] [place] [address] Care Team Providers Care Financial Analyst Intern Name Role Phone Roberta Wilde MD Primary Care Provider [phone] Encounter Details Date Type Department Care Team (Late st Contact Info) Description 07/21/2024 Telephone [facility] [address] [place] [address] Roberta Wilde MD [address] [place] [address] Social History Tobacco Use Types Packs/Day Years Used Date Smoking Tobacco: Every Day Cigarettes Started: 06/30/1983 Sex and Gender Information Value Date Recorded Sex Assigned at Male 12/18/2022 11:35 AM EST Legal Sex Male 8:40 PM EDT Gender Identity Male 12/18/2022 11:35 AM EST Sexual Orientation Straight 07/29/2023 12 :01 PM EDT documented as of this encounter Miscellaneous Notes * Telephone Encounter - Soalnge Vásquez - 07/21/2024 2:21 PM EDT Patient [...] 12/21/2024 10:40 AM EST Office Visit [facility] [address] [place] [address] Roberta Wilde MD [address] [place] [address] documented as of this encounter Visit Diagnoses Not on filedocumented in this encounter Care Teams Financial Analyst Intern Relationship Specialty Start Date End Date Roberta Wilde MD 70 [facility] [place] [address] PCP - General Family Medicine 12/03/22 documented as of this encounter
--- OUTSIDE RECORDS SUMMARY | 2024-12-14 09:12 | XMS_ITS | Encounter Summary ---
Author Organization [employer] Address [address] [place] [address] [place], [place] [address] Care Team Providers Care Bb Shot Packer Name Role Phone Roberta Wilde MD Primary Care Provider [phone] Reason for Visit * Reason Onset Date Comments PT-1 08/24/2024 Encounter Details Date Type Department Care Team ([facility] st Contact Info) Description 08/24/2024 Telephone [facility] [address] [place], [place] [id number] Roberta Wilde MD [address] [place] [address] PT-1 Social History Tobacco Use Types Packs/Day [...] EDT Active PT-1 for this pt for [address] approved 08/17/24, exp 08/17/25. * Telephone Encounter - Marina Flores - 08/24/2024 10:44 AM EDT Pt-1 Request/Renewal: Letter from [facility] Name of Treating Provider/Treating Facility: [facility] Address of Treating Facility: [address] [place] [address] Number of Visits Requested: N/A Patient's Physical Address: [address] [place] [address] Date of Expiration: documented in this encounter Plan of Treatment Upcoming Encounters Date Type Department Care Team (Late st Contact Info) Description 12/21/2024 10:40 AM EST Office Visit [facility] MED[facility] [address] [place] [address] Roberta Wilde MD [address] [place] [address] documented as of this encounter Visit Diagnoses Not on filedocumented in this encounter Care Teams Bb Shot Packer Relationship Specialty Start Date End Date Roberta Wilde MD [address] [place] [address] PCP - General Family Medicine 12/03/22 documented as of this encounter
--- OUTSIDE RECORDS SUMMARY | 2024-12-14 09:12 | XMS_ITS | Encounter Summary ---
Author Organization [employer] Address [address] [place] [address] [address], [place] [address] Care Team Providers Care Human Resources Benefits Specialist Name Role Phone Roberta Wilde MD Primary Care Provider [phone] Reason for Visit * Reason Comments Med Refill Encounter Details Date Type Department Care Team (Late st Contact Info) Description 06/19/2024 Refill Ana [facility] [address] [place] [address] Roberta Wilde MD 70 [place] [address] Antisocial personality disorder (CMS/HCC); ADHD, impulsive type [...] 12/21/2024 10:40 AM EST Office Visit Ana [facility] 70 [place] [address] Roberta Wilde MD 70 [place] [address] documented as of this encounter Visit Diagnoses Diagnosis Antisocial personality disorder (CMS/[facility]) Antisocial personality disorder ADHD, impulsive type documented in this encounter Care Teams Human Resources Benefits Specialist Relationship Specialty Start Date End Date Roberta Wilde MD 70 [place] [address] PCP - General Family Medicine 12/03/22 documented as of this encounter
--- OUTSIDE RECORDS SUMMARY | 2024-12-14 09:12 | XMS_ITS | Encounter Summary ---
Author Organization [employer] Address [address] [place] [address] Care Team Providers Care Permit Agent Name Role Phone Roberta Wilde MD Primary Care Provider [phone] Reason for Visit * Reason Onset Date Comments PT-1 08/17/2024 Encounter Details Date Type Department Care Team (Late st Contact Info) Description 08/17/2024 Telephone [facility] [address] [place], [place] [id number] Roberta Wilde MD 70 [place] [address] PT-1 Social History Tobacco Use Types Packs/Day [...] Candelario - 08/17/2024 4:36 PM EDT PT-1 [id number] authorized * Telephone Encounter - CORRINE Candelario - 08/17/2024 11:30 AM EDT PT-1 request is submitted- [facility] PT-1 Request Number [id number] is Pending * Telephone Encounter - Marina Flores - 08/17/2024 10:51 AM EDT Pt-1 Request/Renewal: Letter From [facility] Name of Treating Provider/Treating Facility: [facility] Address of Treating Facility: [address] [place] [address] Number of Visits Requested: N/A Patient's Physical Address: [facility] [address] Letter has [address] [place] [address] Date of Expiration: 09/11/2024 documented in this encounter Plan of Treatment Upcoming Encounters Date Type Department Care Team (Late st Contact Info) Description 12/21/2024 10:40 AM EST Office Visit [facility] 70 [place] [address] Roberta Wilde MD 70 [place] [address] documented as of this encounter Visit Diagnoses Not on filedocumented in this encounter Care Teams Permit Agent Relationship Specialty Start Date End Date Roberta Wilde MD 70 [place] [address] PCP - General Family Medicine 12/03/22 documented as of this encounter
--- OUTSIDE RECORDS SUMMARY | 2024-12-14 09:12 | XMS_ITS | Encounter Summary ---
Author Organization [employer] Address [address] [place] [address] [place], [place] [address] Care Team Providers Care Market Analysis Director Name Role Phone Roberta Wilde MD Primary Care Provider [phone] Reason for Visit * Reason Onset Date Comments PT1 12/08/2024 Encounter Details Date Type Department Care Team (Late st Contact Info) Description 12/08/2024 Telephone [facility] MED[facility] 73 [place] [address] Roberta Wilde MD 70 [place] [address] PT1 Social History Tobacco Use Types Packs/Day [...] encounter Miscellaneous Notes * Telephone Encounter - Jeffrey Rosales CMA - 12/12/2024 3:38 PM EST PT-1 [facility] Dr. Wilde, will 06/2025 * Telephone Encounter - Jeffrey Rosales CMA - 12/09/2024 1:17 PM EST PT-1 approved for [facility], I had to re-submit for Dr. Wilde as it was in my Recent Activity onthe [employer] portal without an expiration date, usually meaning there is an issue with the provider NPI, I re-submitted under the [facility] NPI. * Telephone Encounter - Jeffrey Rosales CMA - 12/08/2024 1:57 PM EST Both PT-1 requests submitted, pending approval. * Telephone Encounter - [place] Brent - 12/08/2024 11:52 AM EST Patient calling to update PT1 information. Patient states this is temporary and is currently sheltered homeless. Address: [address] [place] [address] Patient unsure how long he will be at this address. Manager Basketball: [employer] [address] [place] [address] DOS: 12/12/24 Visits: 4 Manager Basketball: PCP Jeff ARELLANO DOS: 12/21/24 Visits: Patient states he needs 1x/month documented in this encounter Plan of Treatment Upcoming Encounters Date Type Department Care Team (Late st Contact Info) Description 12/21/2024 10:40 AM EST Office Visit Ana [facility] [address] [place] [address] Roberta Wilde MD 70 [facility] [place] [address] documented as of this encounter Visit Diagnoses Not on filedocumented in this encounter Care Teams Market Analysis Director Relationship Specialty Start Date End Date Roberta Wilde MD 70 [place] [facility] [place] [address] PCP - General Family Medicine 12/03/22 documented as of this encounter
--- OUTSIDE RECORDS SUMMARY | 2024-12-14 09:12 | XMS_ITS | Encounter Summary ---
Author Organization [employer] Address [address] [place] [address] 7 [place] [address] Care Team Providers Care Felt Hanger Name Role Phone Roberta Wilde MD Primary Care Provider [phone] Reason for Visit * Reason Onset Date Comments PT-1 12/06/2024 Encounter Details Date Type Department Care Team (Late st Contact Info) Description 12/06/2024 Telephone [place] [facility] 70 [place] [address] Roberta Wilde MD 70 [place] [address] PT-1 Social History Tobacco Use Types Packs/Day [...] * Telephone Encounter - Starr Johnson - 12/07/2024 2:47 PM EST [id number] Ludwig Carson - 1975 [address] [facility] [address] [facility] - [address] [facility] [address] 12/07/2025 Frequency - 4 per Month - Duration 12 Month(s) Escort:Yes Wheelchair:No Transportation Phone: [facility] [phone] Authorized * Telephone Encounter - Starr Johnson - 12/06/2024 4:54 PM EST PT-1 Request Number [id number] is Pending * Telephone Encounter - Shilpa Harrington - 12/06/2024 2:21 PM EST Pt LMOM Requests PT-1 to [address] [place] [address] Did not specify date documented in this encounter Plan of Treatment Upcoming Encounters Date Type Department Care Team (Late st Contact Info) Description 12/21/2024 10:40 AM EST Office Visit Ana [facility] 70 [place], [place] [phone] Roberta Wilde MD 70 [place], [place] documented as of this encounter Visit Diagnoses Not on filedocumented in this encounter Care Teams Felt Hanger Relationship Specialty Start Date End Date Roberta Wilde MD 70 [facility] [address] PCP - General Family Medicine 12/03/22 documented as of this encounter
--- OUTSIDE RECORDS SUMMARY | 2024-12-14 09:12 | XMS_ITS | Encounter Summary ---
Author Organization [employer] Address [address] [place] [address] 7 [place] [address] Care Team Providers Care Director Of Elementary Education Name Role Phone Roberta Wilde MD Primary Care Provider [phone] Reason for Visit * Reason Onset Date Comments Med Refill 12/06/2024 Encounter Details Date Type Department Care Team (Late st Contact Info) Description 12/06/2024 Refill [facility] 70 [place] [address] Roberta Wilde MD 70 [place] [address] Antisocial personality disorder (CMS/HCC); ADHD, impulsive type [...] Telephone Encounter - Starr Johnson - 12/06/2024 11:04 AM EST Med queued for provider to send documented in this encounter Plan of Treatment Upcoming Encounters Date Type Department Care Team (Late st Contact Info) Description 12/21/2024 10:40 AM EST Office Visit Ana [facility] [address] [place] [address] Roberta Wilde MD 70 [place] [address] documented as of this encounter Visit Diagnoses Diagnosis Antisocial personality disorder (CMS/HCC) Antisocial personality disorder ADHD, impulsive type documented in this encounter Care Teams Director Of Elementary Education Relationship Specialty Start Date End Date Roberta Wilde MD 70 [place] [address] PCP - General Family Medicine 12/03/22 documented as of this encounter
--- OUTSIDE RECORDS SUMMARY | 2024-12-14 09:12 | XMS_ITS | Encounter Summary ---
Author Organization [employer] Address [address] [place] [address] 7[address] [place] [address] Care Team Providers Care Home Specialist Name Role Phone Roberta Wilde MD Primary Care Provider [phone] Encounter Details Date Type Department Care Team (Late st Contact Info) Description 09/20/2024 Orders Only [facility] 58 [place] [address] Roberta Wilde MD 70 [place] [address] Social History Tobacco Use Types Packs/Day Years [...] Visit Ana [facility] 70 [place] [address] Roberta Wilde MD 70 [place] [address] documented as of this encounter Procedures Procedure Name Priority Date/Time Associated Diagnosis Comments ECG 12-LEAD Routine 09/18/2024 8:54 AM EST documented in this encounter Results * ECG 12 lead (09/18/2024 8:54 AM EST) us Roberta Wilde MD ECG ORDERABLES Final Result documented in this encounter Visit Diagnoses Not on filedocumented in this encounter Care Teams Home Specialist Relationship Specialty Start Date End Date Roberta Wilde MD 70 [place] [address] PCP - General Family Medicine 12/03/22 documented as of this encounter
--- OUTSIDE RECORDS SUMMARY | 2024-12-14 09:12 | XMS_ITS | Encounter Summary ---
Author Organization [employer] Address [address] [place] [address] [place] [address] Care Team Providers Care Boring Machine Set Up Operator Name Role Phone Roberta Wilde MD Primary Care Provider [phone] Reason for Visit * Reason Onset Date Comments Med Refill 12/01/2024 Encounter Details Date Type Department Care Team (Late st Contact Info) Description 12/01/2024 Refill [facility] 73 [place] [address] Roberta Wilde MD 70 [place] [address] Antisocial personality disorder (CMS/HCC); ADHD, impulsive type; [...] * Telephone Encounter - Starr Johnson - 12/01/2024 3:42 PM EST lisdexamfetamine (Vyvanse) 50 MG capsule Masspat Last fill Date: 11.01.24 Masspat sold Date: 10.31.24 Last OV: 1.3.25 Next OV: 2.12.25 Last UTOX: 08.27.23 CSA Date: Due DNF Date: Due methylphenidate (Ritalin) 10 MG tablet Masspat Last fill Date: 11.03.24 Masspat sold Date: 11.07.24 DNF Date: Due * Telephone Encounter - Magi Lee - 12/01/2024 2:36 PM EST Patient called for refill of the following medications lisdexamfetamine (Vyvanse) 50 MG capsule methylphenidate (Ritalin) 10 MG tablet Please use the following pharmacy [facility] - [place], [place] - [facility] [address] [id number] SEB #: -- documented in this encounter Plan of Treatment Upcoming Encounters Date Type Department Care Team (Late st Contact Info) Description 12/21/2024 10:40 AM EST Office Visit Ana [facility] 70 [place] [address] Roberta Wlide MD 70 [place] [address] documented as of this encounter Visit Diagnoses Diagnosis Antisocial personality disorder (CMS/[facility]) Antisocial personality disorder ADHD, impulsive type Impulse control disorder Impulse control disorder, unspecified documented in this encounter Care Teams Boring Machine Set Up Operator Relationship Specialty Start Date End Date Roberta Wilde MD [address] [place] [address] PCP - General Family Medicine 12/03/22 documented as of this encounter
--- OUTSIDE RECORDS SUMMARY | 2024-12-14 09:13 | XMS_ITS | Encounter Summary ---
Author Organization [employer] Address [address] [place] [address] 7 [place] [address] Care Team Providers Care Thermodynamics Engineer Name Role Phone Roberta Wilde MD Primary Care Provider [phone] Reason for Visit * Reason Comments Care Management Encounter Details Date Type Department Care Team (Late st Contact Info) Description 09/13/2024 Telephone [place] [facility] 73 [place] [address] Mayra Barry Care Management Social History Tobacco [...] Description 12/21/2024 10:40 AM EST Office Visit [facility] 70 [place] [address] Roberta Wilde MD 70 [place] [address] documented as of this encounter Visit Diagnoses Not on filedocumented in this encounter Care Teams Thermodynamics Engineer Relationship Specialty Start Date End Date Roberta Wilde MD 70 [place] [address] PCP - General Family Medicine 12/03/22 documented as of this encounter
--- OUTSIDE RECORDS SUMMARY | 2024-12-14 09:13 | XMS_ITS | Encounter Summary ---
Author Organization [employer] Address [address] [place] [address] [address] [address] Care Team Providers Care Restaurant Crew Member Name Role Phone Roberta Wilde MD Primary Care Provider [phone] Encounter Details Date Type Department Care Team (Late Contact Info) Description 09/05/2024 Orders Only [facility] [address] [place] [address] Roberta Wilde MD 70 [place] [address] Social History Tobacco Use Types Packs/Day Years [...] 12/21/2024 10:40 AM EST Office Visit [facility] MED[facility] 70 [place] [address] Roberta Wilde MD 70 [place] [address] documented as of this encounter Procedures Procedure [...] on filedocumented in this encounter Care Teams Restaurant Crew Member Relationship Specialty Start Date End Date Roberta Wilde MD 70 [place] [address] PCP - General Family Medicine 12/03/22 documented as of this encounter
--- OUTSIDE RECORDS SUMMARY | 2024-12-14 09:13 | XMS_ITS | Encounter Summary ---
Author Organization [facility] [employer] Address [address] [place] [address] Care Team Providers Care Epic Interface Analyst Name Role Phone Roberta Wilde MD Primary Care Provider [phone] Encounter Details Date Type Department Care Team (Late Contact Info) Description 09/09/2024 Orders Only [facility] [address] [place] [address] Roberta Wilde MD 70 [place] [address] Social History Tobacco Use Types Packs/Day Years [...] Description 12/21/2024 10:40 AM EST Office Visit [facility] MED[facility] 70 [place] [address] Roberta Wilde MD 70 [place] [address] documented as of this encounter Procedures Procedure Name Priority Date/Time Associated Diagnosis Comments ECG 12-LEAD Routine 09/09/2024 2:22 PM EDT documented in this encounter Results * ECG 12 lead (09/09/2024 2:22 PM EDT) us Roberta Wilde MD ECG ORDERABLES Final Result documented in this encounter Visit Diagnoses Not on filedocumented in this encounter Care Teams Epic Interface Analyst Relationship Specialty Start Date End Date Roberta Wilde MD 70 [place] [address] PCP - General Family Medicine 12/03/22 documented as of this encounter
== END 2024-12-14 09:54 | disposition home or self-care (01) ==
PROVIDERS: PCP Family Medicine; Visit Provider Nurse Practitioner Psychiatric/Mental Health
DX: F11.20 Opioid dependence, uncomplicated (principal)
CPT/HCPCS: 98012

== ENCOUNTER → 2024-12-14 08:57 | Outpatient (BNVA) | payer MEDICAID, SELFPAY | PROVIDERS: PCP Family Medicine; Visit Provider Nurse Practitioner Psychiatric/Mental Health ==

== ENCOUNTER 2025-01-04 10:13 | Outpatient (AMB) | payer MEDICAID, SELFPAY ==
--- NOTE | 2025-01-04 10:24 | MHC.AM.SUB ---
Intake Visit Reasons: MAT Office Allergies codeine [CODEINE] Allergy (Unknown, Verified 10/14/24 08:09) CONSTIPATION diazepam [From Valium] Adverse Reaction (Verified 10/14/24 08:09) Hypertension HPI HPI MAT Office: Details: Patient presents for XOCHILT treatment follow up Currently prescribed Buprenorphine 8mg QID Tolerating current dose Working with [employer] through [employer]--trying to find possible residential program Still residing at friends mother's house, does not feel welcome there Went to [facility] Thursday Review of Systems Const Reports as per HPI and Reports no additional complaints Physical Exam Const General: cooperative and well groomed Orientation/consciousness: patient oriented x3 Limitations: no limitations Neuro General: patient oriented x3 Psych Appearance: well kempt Speech and movement: Normal speech and movement present Affect: Blunted affect present Attitude: cooperative Thought process: Circumstantial thought process present Thought content: Normal thought content present Insight: Good insight present (Psych) Judgement: Good judgement present (Psych) [facility] Medical History Substance abuse HTN (hypertension) Alcoholism Social History Alcohol intake: current Patient Tobacco Use Status: Current someday Tobacco user Substance Use Type: Crack/Cocaine Assessment & Plan Assessment & Plan (1) Opioid use disorder, severe, dependence: Code(s): F11.20 - Opioid dependence, uncomplicated Category: Medical Plan: continue suboxone at current dose follow up 4 weeks
--- OUTSIDE RECORDS SUMMARY | 2025-01-04 12:25 | XMS_ITS | Encounter Summary ---
Author Organization [employer] Address [address] [place] [address] 7t [place] [address] Care Team Providers Care Cardiovascular Surgical Tech Name Role Phone Roberta Wilde MD Primary Care Provider [phone] Encounter Details Date Type Department Care Team (Late st Contact Info) Description 09/20/2024 Orders Only [facility] [address] [place] [address] Roberta Wilde MD 70 [place] [address] Social History Tobacco Use Types Packs/Day Years [...] Care Team (Late st Contact Info) Description 01/18/2025 10:00 AM EDT Office Visit Ana [facility] MED[facility] 70 [place] [address] Roberta Wilde MD 70 [place] [address] documented as of this encounter Procedures Procedure Name Priority Date/Time Associated Diagnosis Comments ECG 12-LEAD Routine 09/18/2024 8:54 AM EST documented in this encounter Results * ECG 12 lead (09/18/2024 8:54 AM EST) us Roberta Wilde MD ECG ORDERABLES Final Result documented in this encounter Visit Diagnoses Not on filedocumented in this encounter Care Teams Cardiovascular Surgical Tech Relationship Specialty Start Date End Date Roberta Wilde MD 70 [place] [address] PCP - General Family Medicine 12/03/22 documented as of this encounter
--- OUTSIDE RECORDS SUMMARY | 2025-01-04 12:25 | XMS_ITS | Encounter Summary ---
Author Organization [employer] Address [address] [place] [address] 7 [place] [address] Care Team Providers Care Legal Writing Professor Name Role Phone Roberta Wilde MD Primary Care Provider [phone] Reason for Visit * Reason Onset Date Comments PT-1 08/24/2024 Encounter Details Date Type Department Care Team ([facility] st Contact Info) Description 08/24/2024 Telephone [facility] 58 [place], [place] [phone] Roebrta Wilde MD 70 [place] [address] PT-1 Social History Tobacco Use Types Packs/Day [...] EDT Active PT-1 for this pt for [address] approved 08/17/24, exp 08/17/25. * Telephone Encounter - Marina Flores - 08/24/2024 10:44 AM EDT Pt-1 Request/Renewal: Letter from [facility] Name of Treating Provider/Treating Facility: [facility] Address of Treating Facility: [address] [place] [address] Number of Visits Requested: N/A Patient's Physical Address: [address] [place] [address] Date of Expiration: documented in this encounter Plan of Treatment Upcoming Encounters Date Type Department Care Team (Late st Contact Info) Description 01/18/2025 10:00 AM EDT Office Visit Ana [facility] 70 [place] [address] Roberta Wilde MD 70 [place] [address] documented as of this encounter Visit Diagnoses Not on filedocumented in this encounter Care Teams Legal Writing Professor Relationship Specialty Start Date End Date Roberta Wilde MD 70 [place] [address] PCP - General Family Medicine 12/03/22 documented as of this encounter
--- OUTSIDE RECORDS SUMMARY | 2025-01-04 12:25 | XMS_ITS | Encounter Summary ---
Author Organization [employer] Address [address] [place] [address] 7 [place] [address] Care Team Providers Care Test Engine Operator Name Role Phone Roberta Wilde MD Primary Care Provider [phone] Reason for Visit * Reason Onset Date Comments PT-1 12/06/2024 Encounter Details Date Type Department Care Team (Late st Contact Info) Description 12/06/2024 Telephone [place] [facility] 70 [place] [address] Roberta Wilde MD 70 [place] [address] PT-1 Social History Tobacco Use Types Packs/Day [...] Starr Johnson - 12/07/2024 2:47 PM EST [id number] Ludwig Carson - 1975 [address] [facility] [address] [facility] - [address] [facility] [address] 12/07/2025 Frequency - 4 per Month - Duration 12 Month(s) Escort:Yes Wheelchair:No Transportation Phone: [facility] [phone] Authorized * Telephone Encounter - Starr Johnson - 12/06/2024 4:54 PM EST PT-1 Request Number [id number] is Pending * Telephone Encounter - Shilpa Harrington - 12/06/2024 2:21 PM EST Pt LMOM Requests PT-1 to Dentistry [address] [place] [address] Did not specify date documented in this encounter Plan of Treatment Upcoming Encounters Date Type Department Care Team (Late st Contact Info) Description 01/18/2025 10:00 AM EDT Office Visit Ana [facility] 70 [place], [place] [phone] Roberta Wilde MD 70 [place], [place] documented as of this encounter Visit Diagnoses Not on filedocumented in this encounter Care Teams Test Engine Operator Relationship Specialty Start Date End Date Roberta Wilde MD 70 [facility] [place] [address] PCP - General Family Medicine 12/03/22 documented as of this encounter
--- OUTSIDE RECORDS SUMMARY | 2025-01-04 12:25 | XMS_ITS | Clinical Summary ---
Author Organization [email or web address] Address [address] [place] [address] [address] [place] [address] Care Team Providers Care Prick Stitcher Name Role Phone Roberta Wilde MD Primary Care Provider Allergies Active Allergy Reactions Criticality Noted Date [...] daily. 180 tablet 10/10/20 24 025 Active cetirizine (ZyrTEC) 10 MG tabletIndicatio ns:Allergic rhinitis, unspecified seasonality, unspecified trigger Take 1 tablet (10 mg) by mouth if needed each day for allergies. 90 tablet 10/10/20 24 025 Active tiZANidine [...] day. 90 capsule 11/23/19 25 025 Active buprenorphine (Subtex) 8 MG DISSOLVE 1 tablet UNDER THE TONGUE 4 TIMES DAILY 12/19/19 25 Active gabapentin (Neurontin) 600 MG tabletIndicatio ns:Chronic midline low back pain with bilateral sciatica,Alcoho l use disorder, severe, in early remission (CMS/HCC) Take 1 tablet (600 mg) by mouth 3 times daily. 90 tablet 12/21/19 25 025 Active ARIPiprazole (Abilify) 10 MG tabletIndicatio ns:Paranoia (CMS/HCC) Take 1 tablet (10 mg) by mouth Once per day. 90 tablet 12/21/19 25 025 Active carBAMazepine (TEGretol) 200 MG tabletIndicatio ns:Antisocial personality disorder (CMS/HCC) TAKE 1 TABLET (200 MG) BY MOUTH 2 TIMES DAILY. 56 tablet 12/22/19 25 025 Active lisdexamfetamin e (Vyvanse) 50 MG capsuleIndicati ons:Antisocial personality disorder (CMS/HCC),ADHD, impulsive type Take 1 capsule (50 mg) by mouth in the morning for 20 days. 28 capsule 01/02/20 25 025 Active methylphenidate (Ritalin) 10 MG tabletIndicatio ns:ADHD, impulsive type Take 1 tablet (10 mg) by mouth at noon and 1 tablet (10 mg) in the evening. Do all this for 28 days. 56 tablet 01/02/20 25 025 Active gabapentin (Neurontin) 600 MG tabletIndicatio ns:Chronic midline low back pain with bilateral sciatica,Alcoho l use disorder, severe, in early remission (CMS/HCC) Take 1 tablet (600 mg) by mouth 3 times daily. 90 tablet 10/10/20 24 025 Discontinued(R eorder (will not trigger notification to Pharmacy)) carBAMazepine (TEGretol) 200 MG tabletIndicatio ns:Antisocial personality disorder (CMS/HCC) Take 1 tablet (200 mg) by mouth 2 times daily. 180 tablet 10/10/20 24 025 Discontinued ARIPiprazole (Abilify) 5 MG tabletIndicatio ns:Antisocial personality disorder (CMS/HCC) Take 1 tablet (5 mg) by mouth Once per day. 90 tablet 10/10/20 24 025 Discontinued methylphenidate (Ritalin) 10 MG tabletIndicatio ns:Antisocial personality disorder (CMS/HCC),ADHD, impulsive type,Impulse control disorder Take 1 tablet (10 mg) by mouth at noon and 1 tablet (10 mg) in the evening. Do all this for 28 days. 56 tablet 12/02/19 25 025 Discontinued lisdexamfetamin e (Vyvanse) 50 MG capsuleIndicati ons:Antisocial [...] 20 days. 20 capsule 12/10/19 25 025 Discontinued(R eorder (will not trigger [...] Encounters Date Type Department Care Team Description 01/02/[address] [address] Roberta Wilde MD PA required for RX 01/02/[address] [address] Roberta Wilde MD Antisocial personality disorder ([facility] ADHD, impulsive type 12/30/[address] [address] Roberta Wilde MD Antisocial personality disorder ([facility]); ADHD, impulsive type 12/30/[address] [address] Roberta Wilde MD Antisocial personality disorder (CMS/HCC); ADHD, impulsive type; Impulse control disorder 12/27/2024 10:40 AM EST Telemedicine [facility] [address] [place] [address] Roberta Wilde MD Poisoning by agent primarily affecting blood constituent, undetermined intent, initial encounter (Primary Dx); Sheltered homelessness; Extreme poverty 12/27/[address] [address] Roberta Wilde MD Antisocial personality disorder (CMS/HCC); Chronic midline low back pain with bilateral sciatica; Alcohol use disorder, severe, in early remission (CMS/HCC); Paranoia (CMS/HCC); ADHD, impulsive type; Impulse control disorder 12/26/2024 Orders Only [facility] [address] [place] [address] Roberta Wilde MD 12/23/[address] [address] [place] RN ER Follow-up 12/23/[address] [address] Roberta Wilde MD Labs Only 12/22/[address] [address] Roberta Wilde MD Antisocial personality disorder (CMS/HCC) 12/21/2024 10:40 AM EST Office Visit [address] [address] Roberta Wilde MD Paranoia (CMS/HCC) (Primary Dx); Chronic midline low back pain with bilateral sciatica; Alcohol use disorder, severe, in early remission (CMS/HCC); Antisocial personality disorder (CMS/HCC); Sheltered homelessness 12/09/[address] [address] Roberta Wilde MD Medication Problem; Med Refill 12/08/2024 Telephone [facility] [address] [place] [address] Roberta Wilde MD PT1; PT1 address correction 12/06/[address] [address] Roberta Wilde MD PT-1 12/06/[address] [address] Roberta Wilde MD Antisocial personality disorder (CMS/HCC); ADHD, impulsive type 12/01/[address] [address] Roberta Wilde MD Antisocial personality disorder (CMS/HCC); ADHD, impulsive type; Impulse control disorder 11/24/[address] [address] Roberta Wilde MD PT1 11/23/[address] [address] Roberta Wilde MD Abnormal prostate specific antigen (PSA); Chronic midline low back pain with bilateral sciatica; Alcohol use disorder, severe, in early remission (CMS/HCC); Antisocial personality disorder (CMS/HCC); ADHD, impulsive type; Impulse control disorder 11/11/2024 9:20 AM EST Office Visit [address] [address] Roberta Wilde MD Colon cancer screening (Primary Dx); Right hip pain; Right hip crepitus; Need for vaccination 11/11/[address] [address] Roberta Wilde MD PT-1 11/09/2024 Travel 10/25/[address] [address] Roberta Wilde MD Antisocial personality disorder (CMS/HCC); ADHD, impulsive type; Impulse control disorder 10/21/[address] [address] Roberta Wilde MD PT-1 Problem 10/15/2024 Travel 10/14/2024 Orders Only [facility] Information [facility] [address] [place] [address] Roberta Wilde MD 10/14/[address] [address] Roberta Wilde MD PT1 10/11/[address] [address] Roberta Wilde MD PT1 10/11/[address] [address] Roberta Wilde MD Med Refill 10/11/[address] [address] Roberta Wilde MD Chronic midline low back pain with bilateral sciatica; Allergic rhinitis, unspecified seasonality, unspecified trigger; Mild intermittent asthma, unspecified whether complicated 10/10/2024 Patient Outreach [address] [address] Leonila Shipman Med Management 10/10/2024 Orders Only [address] [address] Roberta Wilde MD Antisocial personality disorder (CMS/HCC); Abnormal prostate specific antigen (PSA); Impulse control disorder; Chronic midline low back pain with bilateral sciatica; Alcohol use disorder, severe, in early remission (CMS/HCC); Allergic rhinitis, unspecified seasonality, unspecified trigger 10/07/[address] [phone] Mayra Barry Case Management 10/07/[address] [address] Roberta Wilde MD Prior Authorization 10/05/2024 Patient Outreach [address] [address] Alee Cramer Med Management from Last 3 Months Immunizations Name [...] Sign Reading Time Taken Comments Blood Pressure 149/97 12/21/2024 10:20 AM EST Pulse 74 12/21/2024 10:20 AM EST Temperature 37 ??C (98.6 ??F) 12/21/2024 10:20 AM EST Respiratory Rate 17 12/21/2024 10:20 AM EST Oxygen Saturation 98% 12/21/2024 10:20 AM EST Inhaled Oxygen Concentration - - Weight 98.7 kg (217 lb 9.6 oz) 12/21/2024 10:20 AM EST Height 177.8 cm (5' 10 ) 08/03/2023 10:20 AM EDT Body Mass Index 31.22 08/03/2023 10:20 AM EDT Plan of Treatment Upcoming Encounters Date Type Department Care Team (Late st Contact Info) Description 01/18/2025 10:00 AM EDT Office Visit Ana [facility] [address] [place] [address] Roberta Wilde MD [address] [place] [address] Health Maintenance Due Date Last Done Comments [...] Procedure Name Priority Date/Time Associated Diagnosis Comments HEAVY METALS PROFILE II, WHOLE BLOOD Routine 12/27/2024 2:00 PM EST Poisoning by agent primarily affecting blood constituent, undetermined intent, initial encounter PROTHROMBIN TIME-INR Routine 12/27/2024 2:00 PM EST Poisoning by agent primarily affecting blood constituent, undetermined intent, initial encounter TOXASSURE (R) SELECT 13 (PRESCRIPTION DRUG MONITORING) Routine 12/27/2024 2:00 PM EST Poisoning by agent primarily affecting blood constituent, undetermined intent, initial encounter COMPREHENSIVE METABOLIC PANEL Routine 12/23/2024 8:53 AM EST XR KNEE 4+ VIEWS RIGHT Routine 11/29/2024 Right hip pain Right hip crepitus XR HIP 2 OR 3 VIEWS RIGHT Routine 11/29/2024 Right hip pain Right hip crepitus LAB COLOGUARD?? COLON CANCER SCREEN Routine 11/22/2024 8:00 AM EST Colon cancer screening CT FACIAL BONES W CONTRAST Routine 10/14/2024 12:51 PM EST LIPID PANEL, STANDARD Routine 09/28/2024 [facility] current use of antipsychotic medication Full PANORAMIC RADIOGRAPHIC IMAGE Routine 07/20/2024 2:30 PM EDT PROPHYLAXIS - ADULT Routine 01/04/2019 1 2:00 AM EST PERIODIC ORAL EVALUATION - ESTABLISHED PATIENT Routine 01/04/2019 12:00 AM EST INTRAORAL - COMPLETE SERIES OF RADIOGRAPHIC IMAGES Routine 04/28/2018 12:00 AM EDT from Last 3 Months or Most Recently Relevant to Health Maintenance Results * Heavy Metals Profile II, Whole Blood (12/27/2024 2:00 PM EST) [facility] Lead (Venous) 1.7 0.0 - 3.4 ug/dL [facility] 1 Comment: Testing performed by Inductively coupled plasma/Mass Spectrometry. ?Environmental Exposure: ? WHO Recommendation ? <5.0 ?Occupational Exposure: ? OSHA Lead Std ?40.0 ? IRINA ?30.0 ?Detection Limit = ??1.0 Arsenic, Blood 2 0 - 9 ug/L [facility] 1 Comment:Detection Limit = 1 Mercury, Blood 1.4 0.0 - 14.9 ug/L [facility] 1 Comment:Detection Limit = 1. 0 Cadmium, Blood <0.5 0.0 - 1.2 ug/L [facility] 1 Comment: ? Environmental Exposure: ?Nonsmokers ?0.3 - 1.2 ?Smokers ? 0.6 - 3.9 ? Occupational Exposure: ?OSHA Cadmium Std ?5.0 ?IRINA ? 5.0 ?Detection Limit = 0.5 Blood Venous blood specimen / Unknown 12/27/2024 2:00 PM EST 12/27/2024 Narrative [facility] 1 - 12/31/2024 6:05 AM EST Test(s) 581940-Aqlc, Blood; 497797-Eooraei, Blood; 508797- Mercury, Blood; 682704-Phrebit, Blood was developed and its performance characteristics determined by [facility]. It has not been cleared or approved by the Food and Drug Administration. Performed at: ??01 - [facility] [address] ??[id number] Ecommerce Project Manager: Yimi Baker MD, Phone: ??[phone] us Roberta Wilde MD LAB BLOOD ORDERABLES Final Res ult [facility] 1 * TOXASSURE (R) SELECT 13 (PRESCRIPTION DRUG MONITORING) [[id number]] (12/27/2024 2:00 PM EST) Summary Report FINAL [facility] 1 Comment: TOXASSURE SELECT 13 (MW) Test ? Result ? Flag ? Units Drug Present ??Amphetamine ?2699 ?ng/mg creat ?? Amphetamine is available as a schedule II prescription drug. ??Carboxy-THC ?112 ? ng/mg creat ?? Carboxy-THC is a metabolite of tetrahydrocannabinol (THC). Source ?? of THC is most commonly herbal marijuana or marijuana-based ?? products, but THC is also present in a scheduled prescription ?? medication. Trace amounts of THC can be present in hemp and ?? cannabidiol (CBD) products. This test is not intended to ?? distinguish between xdctr-9-vymbdfrmozwvltfimumw, the predominant ?? form of THC in most herbal or marijuana-based products, and ?? hnunc-0-tnhetrphpuvjmnybynua. ??Buprenorphine ?59 ?ng/mg creat ??Norbuprenorphine ? 1144 ?ng/mg creat ?? Source of buprenorphine is a scheduled prescription medication. ?? Norbuprenorphine is an expected metabolite of buprenorphine. Test ?Result ?Flag ?? Units ?Ref Range ??Creatinine ?81 ? mg/dL ?>=20 Declared Medications: Medication list was not provided. For clinical consultation, please call . 12/27/2024 2:00 PM EST 12/27/2024 Narrative [facility] 1 - 01/03/2025 10:05 AM EST Performed at: ??01 - [facility] [address] ??[id number] Ecommerce Project Manager: Lacey Dove [facility], Phone: ??[phone] Specimen Comment: ToxAssure, ToxAssure FLEX or MAT drug testing: Specimen Comment: -Technical component - Data analysis performed at Specimen Comment: [facility], [address] [place] [address], [phone]. Specimen Comment: [phone]. Ecommerce Project Manager Shivani Turcios MD Specimen Comment: ToxAssure, ToxAssure FLEX or MAT drug testing: Specimen Comment: -Technical component- Result certification performed at Specimen Comment: [facility], [address]. Specimen Comment: [phone]. Ecommerce Project Manager Shivani Turcios MD. us Roberta Wilde MD LAB BLOOD ORDERABLES Final Res ult [facility] 1 * Prothrombin Time-INR (12/27/2024 2:00 PM EST) INR 1.0 0.9 - 1.2 [facility] 1 Comment: Reference interval is for non-anticoagulated patients. Suggested INR therapeutic range for Vitamin K antagonist therapy: ?? Standard Dose (moderate intensity ?therapeutic range): ? 2.0 - 3.0 ?? Higher intensity therapeutic range ? 2.5 - 3.5 Prothrombin Time 10.9 9.1 - 12.0 sec [facility] 1 Blood Venous blood specimen / Unknown 12/27/2024 2:00 PM EST 12/27/2024 Narrative [facility] 1 - 12/28/2024 6:05 AM EST Performed at: ??01 - [facility] [address] ??[id number] Ecommerce Project Manager: Shivani Turcios MD, Phone: ??[phone] Roberta Wilde MD LAB BLOOD ORDERABLES Final Res ult [facility] * Comprehensive Metabolic Panel (12/23/2024 8:53 AM EST) Blood Venous blood specimen / Unknown us Roberta Wilde MD LAB BLOOD ORDERABLES Final Res ult * XR Knee 4+ Views Right (11/29/2024) [...] AM EST) Cologuard Result Negative Negative 11/30/19 25 1:19 PM EST [facility] (CLIA #:[id number]) Comment: NEGATIVE TEST RESULT. A negative Cologuard [...] screened with both Cologuard and colonoscopy. (Beltran Joe al, N Engl J Med 2014;370(14):1286- 1297) The normal value (reference range) for this assay is negative. COLOGUARD RE-SCREENING RECOMMENDATION: Periodic colorectal cancer screening is an important part of preventive healthcare for asymptomatic individuals at average risk for colorectal cancer. ??Following a negative Cologuard result, the [place] [employer] and U.S. Multi-Society Task Force screening guidelines recommend a Cologuard re-screening interval of 3 years. References: [place] [employer] Guideline for Colorectal Cancer Screening: https://www.cancer.org/cancer/cngmi-qgyqpg-itflnh/xruxsifjy-zzojcwfle-hjdxozq/ac s-rec ommendations.html.; Brown STERLING, Liza BECKER, Marion MontesK, Colorectal Cancer Screening: Recommendations for Physicians and Patients from the U.S. Multi-Society Task Force on Colorectal Cancer Screening , Am J Gastroenterology 2017; 112:5225-7078. TEST DESCRIPTION: Composite algorithmic analysis of stool [...] screened with both Cologuard and colonoscopy. (Beltran Disla, N Engl J Med 2014;370(14):9719-6915.) Cologuard may produce a false negative or false positive result (no colorectal cancer or precancerous polyp present at colonoscopy follow up). A negative Cologuard test result does not guarantee the absence of CRC or advanced adenoma (pre-cancer). The current Cologuard screening interval is every 3 years. ([place] [employer] and U.S. Multi-Society Task Force). Cologuard performance data in a 10,000 patient pivotal study using colonoscopy as the reference method can be accessed at the following location: www.Viewdle.Thalchemy/results. Additional description of the Cologuard test process, warnings and precautions can be found at www.cologuard.com. Stool specimen (specimen) 11/22/2024 8:00 AM EST 11/24/2024 1:04 PM EST Roberta Wilde MD LAB MOLECULAR DIAGNOSTICS ORDE RABPREM Final Result Performing Organization Address City/[facility] Co de Phone Number [facility] (CLIA #:[id number]) [place] [address], [place] [phone] * CT FACIAL BONES W CONTRAST (10/14/2024 12:51 PM EST) Anatomical Region Laterality Modality Computed Tomogra phy Roberta Wilde MD IMG CT PROCEDURES Final Result * Lipid Panel, Standard 667[address] (09/28/2024) Blood Venous blood specimen / Unknown us Roberta Wilde MD LAB BLOOD ORDERABLES Final Res ult [facility] [address] [place] [address], [place] [phone] from Last 3 Months or Most Recently Relevant to Health Maintenance Insurance [facility] C[place] ST[place] AD[place] Care Teams Prick Stitcher Relationship Specialty Start Date End Date Roberta Wilde MD [address] [place] [address] PCP - General Family Medicine 12/03/22
--- OUTSIDE RECORDS SUMMARY | 2025-01-04 12:25 | XMS_ITS | Referral Summary ---
Author Organization [facility] Address [address] [place] [address] Care Team Providers Care Information Operator Name Role Phone Moises Castellanos Primary Care Provider [phone] Medications propranoloL (INDERAL) 40 mg tablet Take [...] Plan of Treatment Not on [place] [id number] Care Teams Information Operator Relationship Specialty Start Date End Date Moises Castellanos [place] [address] PCP - General Internal Medicine 10/09/21
--- OUTSIDE RECORDS SUMMARY | 2025-01-04 12:25 | XMS_ITS | Encounter Summary ---
Author Organization [employer] Address [address] [place] [address] [address] [address] Care Team Providers Care Forest Pathology Professor Name Role Phone Roberta Wilde MD Primary Care Provider [phone] Reason for Visit * Reason Onset Date Comments Med Refill 12/30/2024 Encounter Details Date Type Department Care Team (Late st Contact Info) Description 12/30/2024 Refill [facility] [address] [place] [address] Roberta Wilde MD [address] [place] [address] Antisocial personality disorder (CMS/HCC); ADHD, impulsive type [...] t he electric, gas, oil or water [employer] threatened to shut off services in your [...] * Telephone Encounter - Starr Johnson - 12/30/2024 1:36 PM EST [facility] Last fill Date: 12.12.24 [employer] sold Date: 12.12.24 Last OV: 2.25 Next OV: 3 Last UTOX: 2..25 CSA Date: none DNF Date: 01.09.25 documented in this encounter Plan of Treatment Upcoming Encounters Date Type Department Care Team (Late st Contact Info) Description 01/18/2025 10:00 AM EDT Office Visit Ana [facility] [address] [place] [address] Roberta Wilde MD [address] [place] [address] documented as of this encounter Visit Diagnoses Diagnosis Antisocial personality disorder ([facility]) Antisocial personality disorder ADHD, impulsive type documented in this encounter Care Teams Forest Pathology Professor Relationship Specialty Start Date End Date Roberta Wilde MD [address] [place] [address] PCP - General Family Medicine 12/03/22 documented as of this encounter
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
--- OUTSIDE RECORDS SUMMARY | 2025-01-04 12:25 | XMS_ITS | Encounter Summary ---
Author Organization [employer] Address [address] [place] [address] [address], [place] [address] Care Team Providers Care Bar Hostess Name Role Phone Roberta Wilde MD Primary Care Provider [phone] Reason for Visit * Reason Onset Date Comments Med Refill 07/24/2023 Encounter Details Date Type Department Care Team (Late st Contact Info) Description 07/24/2023 Refill [facility] MEDICAL [address] [place] [address] Roberta Wilde MD [address] [place] [address] Chronic midline low back pain with bilateral [...] 01/18/2025 10:00 AM EDT Office Visit Ana [facility] MEDICAL [address] [place] [address] Roberta Wilde MD [address] [place] [address] documented as of this encounter Visit Diagnoses Diagnosis Chronic midline low back pain with bilateral sciatica Vitamin D deficiency ADHD, impulsive type Antisocial personality disorder (CMS/HCC) Antisocial personality disorder documented in this encounter Care Teams Bar Hostess Relationship Specialty Start Date End Date Roberta Wilde MD [address] [place] [address] PCP - General Family Medicine 12/03/22 documented as of this encounter
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
--- OUTSIDE RECORDS SUMMARY | 2025-01-04 12:25 | XMS_ITS | Encounter Summary ---
Author Organization [employer] Address [address] [place] [address] 7[address] [place] [address] Care Team Providers Care Vault Maker Name Role Phone Roberta Wilde MD Primary Care Provider [phone] Encounter Details Date Type Department Care Team (Late st Contact Info) Description 10/10/2024 Orders Only [place] [facility] MEDICAL [address] [place] [address] Roberta Wilde MD [address] [place] [address] Antisocial personality disorder (CMS/HCC); Abnormal prostate specific [...] 01/18/2025 10:00 AM EDT Office Visit Ana [facility] MEDICAL [address] [place] [address] Roberta Widle MD [address] [place] [address] documented as of this encounter Visit Diagnoses Diagnosis Antisocial personality disorder (CMS/HCC) Antisocial personality disorder Abnormal prostate specific antigen (PSA) Impulse control disorder Impulse control disorder, unspecified Chronic midline low back pain with bilateral sciatica Alcohol use disorder, severe, in early remission (CMS/HCC) Allergic rhinitis, unspecified seasonality, unspecified trigger documented in this encounter Care Teams Vault Maker Relationship Specialty Start Date End Date Roberta Wilde MD [address] [place] [address] PCP - General Family Medicine 12/03/22 documented as of this encounter
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
--- OUTSIDE RECORDS SUMMARY | 2025-01-04 12:25 | XMS_ITS | Encounter Summary ---
Author Organization [employer] Address [address] [place] [address] [place] [address] Care Team Providers Care Rug Weaver Name Role Phone Roberta Wilde MD Primary Care Provider [phone] Encounter Details Date Type Department Care Team (Late st Contact Info) Description 09/05/2024 Orders Only [place] [address] [place] [address] Roberta Wilde MD [address] [place] [address] Social History Tobacco Use Types Packs/Day Years [...] Description 01/18/2025 10:00 AM EDT Office Visit [facility] MEDICAL [address] [place] [address] Roberta Wilde MD [address] [place] [address] documented as of this encounter Procedures Procedure [...] on filedocumented in this encounter Care Teams Rug Weaver Relationship Specialty Start Date End Date Roberta Wilde MD [address] [place] [address] PCP - General Family Medicine 12/03/22 documented as of this encounter
--- OUTSIDE RECORDS SUMMARY | 2025-01-04 12:25 | XMS_ITS | Encounter Summary ---
Author Organization [employer] Address [address] [place] [address] [address]t [place] [address] Care Team Providers Care Parachute Panel Joiner Name Role Phone Roberta Wilde MD Primary Care Provider [phone] Encounter Details Date Type Department Care Team (Late st Contact Info) Description 10/14/2024 Orders Only [place] [facility] [address] [place] [address] Roberta Wilde MD [address] [place] [address] Social History Tobacco Use Types Packs/Day Years [...] 01/18/2025 10:00 AM EDT Office Visit Ana [facility] MED[facility] [address] [place] [address] Roberta Wilde MD [address] [place] [address] documented as of this encounter Procedures Procedure [...] on filedocumented in this encounter Care Teams Parachute Panel Joiner Relationship Specialty Start Date End Date Roberta Wilde MD [address] [place] [address] PCP - General Family Medicine 12/03/22 documented as of this encounter
--- OUTSIDE RECORDS SUMMARY | 2025-01-04 12:25 | XMS_ITS | Encounter Summary ---
Author Organization [employer] Address [address] [place] [address] [address] [address] Care Team Providers Care Modeling Director Name Role Phone Roberta Wilde MD Primary Care Provider [phone] Reason for Visit * Reason Onset Date Comments Medication Problem 12/09/2024 Med Refill 12/09/2024 Encounter Details Date Type Department Care Team (Late st Contact Info) Description 12/09/2024 Telephone [facility] MEDICAL [address] [place] [address] Roberta Wilde MD [address] [place] [address] Medication Problem; Med Refill Social History Tobacco [...] t he electric, gas, oil or water [employer] threatened to shut off services in your [...] to this pharmacy on Thursday and the [facility] is closed on Thursday as well Please use the following pharmacy [facility] [address] [place] [address] - [place], [place] - [facility] [[id number]] documented in this encounter Plan of Treatment Upcoming Encounters Date Type Department Care Team ([facility] st Contact Info) Description 01/18/2025 10:00 AM EDT Office Visit Ana [facility] MEDICAL [address] [place] [address] Roberta Wilde MD [address] [place], [place] documented as of this encounter Visit Diagnoses Diagnosis Antisocial personality disorder (CMS/HCC) Antisocial personality disorder ADHD, impulsive type documented in this encounter Care Teams Modeling Director Relationship Specialty Start Date End Date Roberta Wilde MD [address] [place] [address] PCP - General Family Medicine 12/03/22 documented as of this encounter
--- OUTSIDE RECORDS SUMMARY | 2025-01-04 12:25 | XMS_ITS | Encounter Summary ---
Author Organization [employer] Address [address] [place] [address] [address] [address] Care Team Providers Care Pulmonary Disease Specialist Name Role Phone Roberta Wilde MD Primary Care Provider [phone] Reason for Visit * Reason Onset Date Comments Med Refill 01/02/2025 Encounter Details Date Type Department Care Team (Late st Contact Info) Description 01/02/2025 Refill [facility] MEDICAL [address] [place] [address] Roberta Wilde MD [address] [place] [address] Antisocial personality disorder (CMS/HCC); ADHD, impulsive type [...] t he electric, gas, oil or water [employer] threatened to shut off services in your [...] * Telephone Encounter - CORRINE Candelario - 01/02/2025 2:03 PM EST ESTELA Thomas submitted. documented in this encounter Plan of Treatment Upcoming Encounters Date Type Department Care Team (Late st Contact Info) Description 01/18/2025 10:00 AM EDT Office Visit [facility] MED[facility] [address] [place] [address] Roberta Wilde MD [address] [place] [address] documented as of this encounter Visit Diagnoses Diagnosis Antisocial personality disorder (CMS/HCC) Antisocial personality disorder ADHD, impulsive type documented in this encounter Care Teams Pulmonary Disease Specialist Relationship Specialty Start Date End Date Roberta Wilde MD [address] [place] [address] PCP - General Family Medicine 12/03/22 documented as of this encounter
--- OUTSIDE RECORDS SUMMARY | 2025-01-04 12:25 | XMS_ITS | Encounter Summary ---
Author Organization [employer] Address [address] [place] [address] [address] [address] Care Team Providers Care Campaign Advisor Name Role Phone Roberta Wilde MD Primary Care Provider [phone] Reason for Visit * Reason Onset Date Comments PT-1 08/17/2024 Encounter Details Date Type Department Care Team (Late st Contact Info) Description 08/17/2024 Telephone [facility] MED[facility] [address] [place], [place] [phone] oRberta Wilde MD 70 [place] [address] PT-1 Social History Tobacco Use Types Packs/Day [...] Candelario - 08/17/2024 4:36 PM EDT PT-1 [id number] authorized * Telephone Encounter - CORRINE Candelario - 08/17/2024 11:30 AM EDT PT-1 request is submitted- [facility] PT-1 Request Number [id number] is Pending * Telephone Encounter - Marina Flores - 08/17/2024 10:51 AM EDT Pt-1 Request/Renewal: Letter From [facility] Name of Treating Provider/Treating Facility: [facility] Address of Treating Facility: [address] [place] [id number] Number of Visits Requested: N/A Patient's Physical Address: [facility] [address] Letter has [address] [place] [address] Date of Expiration: 09/11/2024 documented in this encounter Plan of Treatment Upcoming Encounters Date Type Department Care Team (Late st Contact Info) Description 01/18/2025 10:00 AM EDT Office Visit Ana [facility] 70 [place] [address] Roberta Wilde MD 70 [place] [address] documented as of this encounter Visit Diagnoses Not on filedocumented in this encounter Care Teams Campaign Advisor Relationship Specialty Start Date End Date Roberta Wilde MD 70 [place] [address] PCP - General Family Medicine 12/03/22 documented as of this encounter
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
--- OUTSIDE RECORDS SUMMARY | 2025-01-04 12:25 | XMS_ITS | Encounter Summary ---
Author Organization [employer] Address [address] [place] [address] [place] [address] Care Team Providers Care Engine Assembler Name Role Phone Roberta Wilde MD Primary Care Provider [phone] Reason for Visit * Reason Comments Med Refill Encounter Details Date Type Department Care Team (Late st Contact Info) Description 06/19/2024 Refill Ana [facility] [address] [place] [address] Roberta Wilde MD [address] [place] [address] Antisocial personality disorder (CMS/HCC); ADHD, impulsive type [...] 10:00 AM EDT Office Visit Ana [facility] [address] [place] [address] Roberta Wilde MD [address] [place] [address] documented as of this encounter Visit Diagnoses Diagnosis Antisocial personality disorder ([facility]) Antisocial personality disorder ADHD, impulsive type documented in this encounter Care Teams Engine Assembler Relationship Specialty Start Date End Date Roberta Wilde MD [address] [place] [address] PCP - General Family Medicine 12/03/22 documented as of this encounter
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
--- OUTSIDE RECORDS SUMMARY | 2025-01-04 12:25 | XMS_ITS | Encounter Summary ---
Author Organization [employer] Address [address] [place] [address] [address] [place] [address] Care Team Providers Care Community Life Director Name Role Phone Roberta Wilde MD Primary Care Provider Reason for Visit * Reason Comments Med Refill Encounter Details Date Type Department Care Team (Late st Contact Info) Description 09/28/2024 Refill Ana [facility] [address] [place] [address] Roberta Wilde MD [address] [place] [address] Chronic midline low back pain with bilateral [...] Visit Ana [facility] [address] [place] [address] Roberta Wilde MD [address] [place] [address] documented as of this encounter Visit Diagnoses Diagnosis Chronic midline low back pain with bilateral sciatica Alcohol use disorder, severe, in early remission (CMS/HCC) Antisocial personality disorder (CMS/HCC) Antisocial personality disorder documented in this encounter Care Teams Community Life Director Relationship Specialty Start Date End Date Roberta Wilde MD [address] [place] [address] PCP - General Family Medicine 12/03/22 documented as of this encounter
--- OUTSIDE RECORDS SUMMARY | 2025-01-04 12:25 | XMS_ITS | Encounter Summary ---
Author Organization [employer] Address [address] [place] [address] 7 [place] [address] Care Team Providers Care Heavy Truck Driver Name Role Phone Roberta Wilde MD Primary Care Provider [phone] Reason for Visit * Reason Comments Med Refill Encounter Details Date Type Department Care Team (Late st Contact Info) Description 12/30/2024 Refill [facility] MED[facility] [address] [place] [address] Roberta Wilde MD [address] [place] [address] Antisocial personality disorder (CMS/HCC); ADHD, impulsive type; [...] encounter Miscellaneous Notes * Telephone Encounter - Mary Kate Tl - 12/30/2024 2:39 PM EST error documented in this encounter Plan of Treatment Upcoming Encounters Date Type Department Care Team (Late st Contact Info) Description 01/18/2025 10:00 AM EDT Office Visit [place] [facility] MED[facility] [address] [place] [address] Roberta Wilde MD [address] [place] [address] documented as of this encounter Visit Diagnoses Diagnosis Antisocial personality disorder (CMS/HCC) Antisocial personality disorder ADHD, impulsive type Impulse control disorder Impulse control disorder, unspecified documented in this encounter Care Teams Heavy Truck Driver Relationship Specialty Start Date End Date Roberta Wilde MD [address] [place] [address] PCP - General Family Medicine 12/03/22 documented as of this encounter
--- OUTSIDE RECORDS SUMMARY | 2025-01-04 12:25 | XMS_ITS | Encounter Summary ---
Author Organization [employer] Address 75 [facility] 7 [place] [address] Care Team Providers Care Pole Shaver Helper Name Role Phone Roberta Wilde MD Primary Care Provider [phone] Reason for Visit * Reason Comments Case Management Encounter Details Date Type Department Care Team (Babak st Contact Info) Description 10/07/2024 Telephone [facility] [address] [place] [address] JhonnyFebruary Case Management Social History [...] 01/18/2025 10:00 AM EDT Office Visit Ana [facility] 70 [place] [address] Roberta Wilde MD [address] [place] [address] documented as of this encounter Visit Diagnoses Not on filedocumented in this encounter Care Teams Pole Shaver Helper Relationship Specialty Start Date End Date Roberta Wilde MD [address] [place] [address] PCP - General Family Medicine 12/03/22 documented as of this encounter
--- OUTSIDE RECORDS SUMMARY | 2025-01-04 12:25 | XMS_ITS | Encounter Summary ---
Author Organization [facility] [employer] Address [address] [place] [address] Care Team Providers Care Car Knocker Name Role Phone Roberta Wilde MD Primary Care Provider [phone] Reason for Visit * Reason Onset Date Comments Med Refill 07/30/2023 Encounter Details Date Type Department Care Team (Late st Contact Info) Description 07/30/2023 Refill [facility] MEDICAL [address] [place] [address] Keri Davis FNP [address] [place] [address] ADHD, impulsive type Social History Tobacco Use [...] Description 01/18/2025 10:00 AM EDT Office Visit [facility] MEDICAL [address] [place] [address] Roberta Wilde MD [address] [place] [address] documented as of this encounter Visit Diagnoses Diagnosis ADHD, impulsive type documented in this encounter Care Teams Car Knocker Relationship Specialty Start Date End Date Roberta Wilde MD [address] [facility] [place] [address] PCP - General Family Medicine 12/03/22 documented as of this encounter
--- OUTSIDE RECORDS SUMMARY | 2025-01-04 12:25 | XMS_ITS | Encounter Summary ---
Author Organization [employer] Address [address] [place] [address] 7t [place] [address] Care Team Providers Care Nurse Research Name Role Phone Roberta Wilde MD Primary Care Provider [phone] Encounter Details Date Type Department Care Team (Late st Contact Info) Description 12/26/2024 Orders Only [facility] [address] [place] [address] Roberta Wilde MD [address] [place] [address] Social History Tobacco Use Types Packs/Day Years [...] 01/18/2025 10:00 AM EDT Office Visit Ana [facility] 70 [place] [address] Roberta Wilde MD [address] [place] [address] documented as of this encounter Procedures Procedure Name Priority Date/Time Associated Diagnosis Comments COMPREHENSIVE METABOLIC PANEL Routine 12/23/2024 8:53 AM EST documented in this encounter Results * Comprehensive Metabolic Panel (12/23/2024 8:53 AM EST) Blood Venous blood specimen / Unknown us Roberta Wilde MD LAB BLOOD ORDERABLES Final Res ult documented in this encounter Visit Diagnoses Not on filedocumented in this encounter Care Teams Nurse Research Relationship Specialty Start Date End Date Roberta Wilde MD [address] [place] [address] PCP - General Family Medicine 12/03/22 documented as of this encounter
--- OUTSIDE RECORDS SUMMARY | 2025-01-04 12:25 | XMS_ITS | Encounter Summary ---
Author Organization [employer] Address [address] [place] [address] 7t [place] [address] Care Team Providers Care Fourdrinier Tender Name Role Phone Roberta Wilde MD Primary Care Provider [phone] Reason for Visit * Reason Comments Med Refill Encounter Details Date Type Department Care Team (Late st Contact Info) Description 12/22/2024 Refill [facility] [address] [place] [address] Roberta Wilde MD [address] [place] [address] Antisocial personality disorder (CMS/HCC) Social History Tobacco [...] AM EDT Office Visit Ana [facility] [address] [place] [address] Roberta Wilde MD [address] [place] [address] documented as of this encounter Visit Diagnoses Diagnosis Antisocial personality disorder (CMS/HCC) Antisocial personality disorder documented in this encounter Care Teams Fourdrinier Tender Relationship Specialty Start Date End Date Roberta Wilde MD [address] [place] [address] PCP - General Family Medicine 12/03/22 documented as of this encounter
--- OUTSIDE RECORDS SUMMARY | 2025-01-04 12:25 | XMS_ITS | Encounter Summary ---
Author Organization [employer] Address [address] [place] [address] 7 [place] [address] Care Team Providers Care Junior Linux Administrator Name Role Phone Roberta Wilde MD Primary Care Provider [phone] Reason for Visit * Reason Onset Date Comments Med Refill 12/06/2024 Encounter Details Date Type Department Care Team (Late st Contact Info) Description 12/06/2024 Refill [facility] [address] [place] [address] Roberta Wilde MD [address] [place] [address] Antisocial personality disorder (CMS/HCC); ADHD, impulsive type [...] 01/18/2025 10:00 AM EDT Office Visit Ana [facility] [address] [place] [address] Roberta Wilde MD [address] [place] [address] documented as of this encounter Visit Diagnoses Diagnosis Antisocial personality disorder (CMS/HCC) Antisocial personality disorder ADHD, impulsive type documented in this encounter Care Teams Junior Linux Administrator Relationship Specialty Start Date End Date Roberta Wilde MD [address] [place] [address] PCP - General Family Medicine 12/03/22 documented as of this encounter
--- OUTSIDE RECORDS SUMMARY | 2025-01-04 12:25 | XMS_ITS | Clinical Summary ---
Author Organization [facility] Address [address] [place] [address] Care Team Providers Care Impregnating Machine Operator Name Role Phone Moises Castellanos Primary Care Provider [phone] Medications propranoloL (INDERAL) 40 mg tablet Take [...] / Fit Test 1973 HIV Screening 1973 Sigmoidoscopy 1973 Hepatitis B Vaccines (1 of 3 - 19+ 3-dose series) 1992 DTaP,Tdap,and Td Vaccines (2 - Td or Tdap) 01/19/2023 01/19/2013 Pneumococcal Vaccine: 50+ Ye ars (2 of 2 - PCV) 2023 08/15/2014 Zoster Vaccines (1 of 2) 2023 COVID-19 Vaccine (3 - season) 2024, 04/07/2021 Influenza Vaccine (#1) 2024 8, 09/02/2017, 09/17/2016 Alcohol/Substance Use Screening 11/09/2024 RSV Vaccine (60+ years old a nd patients) (1 - 1-dose 75+ series) 2048 Insurance [facility] Care Teams Impregnating Machine Operator Relationship Specialty Start Date End Date Moises Castellanos [address] [place] [address] PCP - General Internal Medicine 10/09/21
--- OUTSIDE RECORDS SUMMARY | 2025-01-04 12:25 | XMS_ITS | Encounter Summary ---
Author Organization [employer] Address [address] [place] [address] [address] [address] Care Team Providers Care Aircraft Painter Apprentice Name Role Phone Roberta Wilde MD Primary Care Provider [phone] Reason for Visit * Reason Onset Date Comments PA required for RX 01/02/2025 Encounter Details Date Type Department Care Team (Late st Contact Info) Description 01/02/2025 Telephone [facility] MEDICAL [address] [place] [address] Roberta Wilde MD [address] [place] [address] PA required for RX Social History Tobacco Use Types Packs/Day Years [...] encounter Miscellaneous Notes * Telephone Encounter - Kathy Rosales LPN - 01/04/2025 9:15 AM EST Joan RICHARDS wont allow the way you wrote pts rx for lisdexamphetamine. They will only do . They gave him enough for 4 days and you need to send a new rx for 30 days please. Thanks * Telephone Encounter - CORRINE Candelario - 01/02/2025 11:58 AM EST PA done through , stamped and faxed. * Telephone Encounter - Yamila Kennedy - 01/02/2025 10:20 AM EST Patient called stating his prescription requires a prior authorization: lisdexamfetamine (Vyvanse) 50 MG capsule Sig: Take 1 capsule (50 mg) by mouth in the morning for 20 days. Pharmacy: [id number] - [place], [place] - [place], [place] - [address] documented in this encounter Plan of Treatment Upcoming Encounters Date Type Department Care Team (Late st Contact Info) Description 01/18/2025 10:00 AM EDT Office Visit Ana [facility] [address] [place], [place] [phone] Roberta Wilde MD [address] [place], [place] documented as of this encounter Visit Diagnoses Not on filedocumented in this encounter Care Teams Aircraft Painter Apprentice Relationship Specialty Start Date End Date Roberta Wilde MD 70 [place] [address] PCP - General Family Medicine 12/03/22 documented as of this encounter
--- OUTSIDE RECORDS SUMMARY | 2025-01-04 12:25 | XMS_ITS | Encounter Summary ---
Author Organization [employer] Address [address] [place] [address] 7 [place] [address] Care Team Providers Care Surface Plate Inspector Name Role Phone Roberta Wilde MD Primary Care Provider [phone] Encounter Details Date Type Department Care Team (Late st Contact Info) Description 07/21/2024 Telephone [facility] [address] [place] [address] Roberta Wilde MD [address] [place] [address] Social History Tobacco Use Types Packs/Day Years [...] 01/18/2025 10:00 AM EDT Office Visit Ana [facility] 70 [facility] [place] [address] Roberta Wilde MD [address] [place] [address] documented as of this encounter Visit Diagnoses Not on filedocumented in this encounter Care Teams Surface Plate Inspector Relationship Specialty Start Date End Date Roberta Wilde MD 70 [place] [address] PCP - General Family Medicine 12/03/22 documented as of this encounter
--- OUTSIDE RECORDS SUMMARY | 2025-01-04 12:25 | XMS_ITS | Encounter Summary ---
Author Organization [employer] Address [address] [place] [address] 7 [place] [address] Care Team Providers Care Operations Manager Name Role Phone Roberta Wilde MD Primary Care Provider [phone] Reason for Visit * Reason Onset Date Comments Med Refill 12/27/2024 Encounter Details Date Type Department Care Team (Late st Contact Info) Description 12/27/2024 Refill [facility] MED[facility] [address] [place] [address] Roberta Wilde MD [address] [place] [address] Antisocial personality disorder (CMS/HCC); Chronic midline low [...] * Telephone Encounter - Starr Johnson - 12/28/2024 3:31 PM EST Pharmacy does have the the Tegretol, Gabapentin and Abilify. They will be delivered with his next delivery. To [facility] for stimulants * Telephone Encounter - CAMPOS Gann - 12/28/2024 2:55 PM EST Abilify, tegretol and gabapentin were refilled last week. Starr can you check with pharmacy to see if they have refills? Stimulants are not due for refill yet. To Dr. Wilde to address. * Telephone Encounter - Magi Lee - 12/28/2024 2:44 PM EST Patient called Patient still waiting for these medications to be refilled. Patient also stated Dr Wilde was putting him on adderall 20 mg and took him off the ritalin Please send so the patient can get these medications delivered by Thursday. * Telephone Encounter - Starr Johnson - 12/28/2024 8:46 AM EST To [facility] to resend to the correct pharmacy. * Telephone Encounter - Magi Lee - 12/27/2024 10:37 AM EST Patient called to have the following medications resent to the pharmacy carBAMazepine (TEGretol) 200 MG tablet gabapentin (Neurontin) 600 MG tablet ARIPiprazole (Abilify) 10 MG tablet And for refills of the following medications lisdexamfetamine (Vyvanse) 50 MG capsule Adderall 10 mg twice a day Please use the following pharmacy [facility] - [place], [place] - [address] [facility] [address] [id number] SEB #: -- documented in this encounter Plan of Treatment Upcoming Encounters Date Type Department Care Team (Late st Contact Info) Description 01/18/2025 10:00 AM EDT Office Visit Ana [facility] [address] [place] [address] Roberta Wilde MD [address] [place] [address] documented as of this encounter Visit Diagnoses Diagnosis Antisocial personality disorder (CMS/HCC) Antisocial personality disorder Chronic midline low back pain with bilateral sciatica Alcohol use disorder, severe, in early remission (CMS/HCC) Paranoia (CMS/HCC) Delusional disorder ADHD, impulsive type Impulse control disorder Impulse control disorder, unspecified documented in this encounter Care Teams Operations Manager Relationship Specialty Start Date End Date Roberta Wilde MD 70 [place] [address] PCP - General Family Medicine 12/03/22 documented as of this encounter
--- OUTSIDE RECORDS SUMMARY | 2025-01-04 12:26 | XMS_ITS | Encounter Summary ---
Author Organization [employer] Address [address] [place] [address] 7 [place] [address] Care Team Providers Care Outgoing Inspector Name Role Phone Roberta Wilde MD Primary Care Provider [phone] Reason for Visit * Reason Comments Care Management Encounter Details Date Type Department Care Team (Late st Contact Info) Description 09/13/2024 Telephone [facility] [address] [place] [address] Mayra Barry Care Management Social History Tobacco [...] 01/18/2025 10:00 AM EDT Office Visit Ana [facility] [address] [place] [address] Roberta Wilde MD [address] [place] [address] documented as of this encounter Visit Diagnoses Not on filedocumented in this encounter Care Teams Outgoing Inspector Relationship Specialty Start Date End Date Roberta Wilde MD [address] [place] [address] PCP - General Family Medicine 12/03/22 documented as of this encounter
--- OUTSIDE RECORDS SUMMARY | 2025-01-04 12:26 | XMS_ITS | Encounter Summary ---
Author Organization [facility] [employer] Address [address] [place] [address] [address] [address] Care Team Providers Care Special Forces Warrant Officer Name Role Phone Roberta Wilde MD Primary Care Provider [phone] Encounter Details Date Type Department Care Team (Late Contact Info) Description 09/09/2024 Orders Only [place] [facility] [address] [place] [address] Roberta Wilde MD [address] [place] [address] Social History Tobacco Use Types Packs/Day Years [...] Description 01/18/2025 10:00 AM EDT Office Visit [facility] [address] [place] [address] Roberta Wilde MD [address] [place] [address] documented as of this encounter Procedures Procedure Name Priority Date/Time Associated Diagnosis Comments ECG 12-LEAD Routine 09/09/2024 2:22 PM EDT documented in this encounter Results * ECG 12 lead (09/09/2024 2:22 PM EDT) us Roberta Wilde MD ECG ORDERABLES Final Result documented in this encounter Visit Diagnoses Not on filedocumented in this encounter Care Teams Special Forces Warrant Officer Relationship Specialty Start Date End Date Roberta Wilde MD [address] [place] [address] PCP - General Family Medicine 12/03/22 documented as of this encounter
== END 2025-01-04 10:39 | disposition home or self-care (01) ==
PROVIDERS: PCP Family Medicine; Visit Provider Nurse Practitioner Psychiatric/Mental Health
DX: F11.20 Opioid dependence, uncomplicated (principal)
CPT/HCPCS: 99213

== ENCOUNTER → 2025-01-04 10:13 | Outpatient (BNVA) | payer MEDICAID, SELFPAY | PROVIDERS: PCP Family Medicine; Visit Provider Nurse Practitioner Psychiatric/Mental Health | DX: F11.20 Opioid dependence, uncomplicated (principal) | CPT/HCPCS: 99212 ==

== ENCOUNTER 2025-02-10 11:21 | Outpatient (AMB) | payer MEDICAID, SELFPAY ==
--- NOTE | 2025-02-10 11:41 | MHC.OFFVIS ---
Vital Signs 02/10/25 11:42 Height 5 ft 6 in Weight 228 lb BMI 36.8 Pulse 62 Pulse Source Pulse Oximeter Pulse Oximetry (%) 99 Oxygen Delivery Method Room Air Intake Visit Reasons: MAT Office Allergies codeine [CODEINE] Allergy (Unknown, Verified 02/10/25 11:42) CONSTIPATION diazepam [From Valium] Adverse Reaction (Verified 02/10/25 11:42) Hypertension HPI HPI MAT Office: Details: He feels still peaks and valleys in medicine working and says even this maximal dose isnt helping that much and feels anxiety. He takes Ritalin and has taken Vyvanse as well for ADHD. He is not interested in injectable which may provide more steady levels and is going to check into getting Methadone possibly. [facility] Medical History Substance abuse HTN (hypertension) Alcoholism Social History Alcohol intake: current Patient Tobacco Use Status: Current someday Tobacco user Substance Use Type: Crack/Cocaine Review of Systems Const All systems reviewed & are unremarkable except as noted in HPI and below Physical Exam Vital Signs: Last Vital Signs Pulse 62 02/10/25 11:42 Pulse Ox 99 02/10/25 11:42 Oxygen Delivery Method Room Air 02/10/25 11:42 BMI result Body Mass Index 36.8 Const General: cooperative Assessment & Plan Assessment & Plan (1) Alcohol use disorder, severe, dependence: Code(s): F10.20 - Alcohol dependence, uncomplicated Category: Medical Plan: Continue same dose buprenorphine pills 8 mg qid,one month and one refill. See in two months Let us know if chooses methadone Screen shows TCA and amphetamine (ritalin) and buprenorphine (2) Opioid use disorder, severe, dependence: Code(s): F11.20 - Opioid dependence, uncomplicated Category: Medical Plan: na Plan na Medications: New buprenorphine HCl 8 mg sublingual QID 120 tabs 1RF 30 days Coding Level of Care Code Est Pt Level 3 (64599) Diagnoses Alcohol use disorder, severe, dependence F10.20 Opioid use disorder, severe, dependence F11.20
[2025-02-10 11:42] VITALS: PULSE 62; O2SAT 99; BMI 36.8
--- OUTSIDE RECORDS SUMMARY | 2025-02-10 13:16 | XMS_ITS | Referral Summary ---
Author Organization [facility] Address [address] [place] [address] Care Team Providers Care [employer] Mainframe Systems Programmer Name Role Phone Moises Castellanos Primary Care Provider [phone] Medications propranoloL (INDERAL) 40 mg tablet Take [...] Plan of Treatment Not on file Insurance [facility] [place] [id number] Care Teams Z Os Mainframe Systems Programmer Relationship Specialty Start Date End Date Moises Castellanos [place] [address] PCP - General Internal Medicine 10/09/21
--- OUTSIDE RECORDS SUMMARY | 2025-02-10 13:17 | XMS_ITS | Clinical Summary ---
Author Organization [facility] Address [address] [place] [address] Care Team Providers Care Managing Manager Name Role Phone Moises Castellanos Primary Care Provider [phone] Medications propranoloL (INDERAL) 40 mg tablet Take [...] Vaccines (1 of 2) 2023 COVID-19 Vaccine ( - season) 2024, 04/07/2021 Alcohol/Substance Use Screening 11/09/2024 Influenza Vaccine (Season Ended) 2025 07/27/2018, 09/02/2017, 09/17/2016 RSV Vaccine (60+ years old a nd patients) (1 - 1-dose 75+ series) 2048 Insurance [facility] Care Teams Managing Manager Relationship Specialty Start Date End Date Moises Castellanos [address] [place] [id number] PCP - General Internal Medicine 10/09/21
== END 2025-02-10 12:52 | disposition home or self-care (01) ==
LOC: HO.HCC 11:21
PROVIDERS: PCP Family Medicine; Visit Provider Internal Medicine
DX: F10.20 Alcohol dependence, uncomplicated (principal); F11.20 Opioid dependence, uncomplicated; Z51.81 Encounter for therapeutic drug level monitoring
CPT/HCPCS: 99213

== ENCOUNTER → 2025-02-10 11:21 | Outpatient (BNVA) | payer MEDICAID, SELFPAY | PROVIDERS: PCP Family Medicine; Visit Provider Internal Medicine | DX: F11.20 Opioid dependence, uncomplicated (principal); F10.20 Alcohol dependence, uncomplicated | CPT/HCPCS: 80307; 99212 ==

== ENCOUNTER 2025-04-17 09:58 | Outpatient (AMB) | payer MEDICAID, SELFPAY ==
--- NOTE | 2025-04-17 10:01 | MHC.OFFVIS ---
Intake Visit Reasons: MAT Allergies codeine [CODEINE] Allergy (Unknown, Verified 04/17/25 10:20) CONSTIPATION diazepam [From Valium] Adverse Reaction (Verified 04/17/25 10:20) Hypertension HPI Comments Details: He has been struggling with use of buprenorphine 8 mg qid SL. He says pills taste terrible and make it difficult to use them and has interest in trying strips. He does not want to go back to Methadone and find suboxone helps quite a bit. [facility] Medical History Substance abuse HTN (hypertension) Alcoholism Social History Alcohol intake: current Patient Tobacco Use Status: Current someday Tobacco user Substance Use Type: Crack/Cocaine Review of Systems Const All systems reviewed & are unremarkable except as noted in HPI and below Physical Exam Const General: cooperative Assessment & Plan Assessment & Plan (1) Alcohol use disorder, severe, dependence: Code(s): F10.20 - Alcohol dependence, uncomplicated Category: Medical Plan: na (2) Opioid use disorder, severe, dependence: Comment: He is taking Suboxone pills Code(s): F11.20 - Opioid dependence, uncomplicated Category: Medical Plan: Go to Suboxone strips,4 a day. See how this works See him in one month. Medications: New buprenorphine-naloxone 8-2 mg (Suboxone) 1 film sublingual QID 30 days 120 ea 0RF Coding Level of Care Code Est Pt Level 3 (39388) Diagnoses Alcohol use disorder, severe, dependence F10.20 Opioid use disorder, severe, dependence F11.20
--- OUTSIDE RECORDS SUMMARY | 2025-04-17 10:50 | XMS_ITS | Encounter Summary ---
Author Organization [employer] Address [address] [facility] 7t [place] [address] Care Team Providers Care Sales Service Rep Name Role Phone Roberta Wilde MD Primary Care Provider [phone] Encounter Details Date Type Department Care Team (Late st Contact Info) Description 10/14/2024 Orders Only [facility] [address] [place] [address] Roberta Wilde MD [address] [place] [address] Social History Tobacco Use Types Packs/Day Years [...] Care Team (Late st Contact Info) Description 05/03/2025 9:00 AM EDT Office Visit Ana [facility] [address] [place] [address] Roberta Wilde MD [address] [place] [address] documented as of this encounter Procedures Procedure [...] on filedocumented in this encounter Care Teams Sales Service Rep Relationship Specialty Start Date End Date Roberta Wilde MD [address] [place] [address] PCP - General Family Medicine 12/03/22 documented as of this encounter
== END 2025-04-17 11:22 | disposition home or self-care (01) ==
LOC: HO.HCC 09:58
PROVIDERS: PCP Family Medicine; Visit Provider Internal Medicine
DX: F10.20 Alcohol dependence, uncomplicated (principal); F11.20 Opioid dependence, uncomplicated
CPT/HCPCS: 99213

== ENCOUNTER → 2025-04-17 09:58 | Outpatient (BNVA) | payer OTHER, MEDICAID, SELFPAY | PROVIDERS: PCP Family Medicine; Visit Provider Internal Medicine | DX: F10.20 Alcohol dependence, uncomplicated (principal); F11.20 Opioid dependence, uncomplicated | CPT/HCPCS: 99212 ==

== ENCOUNTER 2025-05-10 09:29 | Outpatient (AMB) | payer MEDICAID, SELFPAY ==
[2025-05-10 09:39] VITALS: BP 136/96; PULSE 75; O2SAT 99
--- NOTE | 2025-05-10 09:39 | A.OFFVISCC_ITS ---
Vital Signs 05/10/25 09:39 BP 136/96 H Blood Pressure Location Lt brachial Position Sitting Pulse 75 Pulse Oximetry (%) 99 Oxygen Delivery Method Room Air Intake Visit Reasons: MAT visit Allergies codeine (CODEINE) Allergy (Unknown, Verified 04/17/25 10:20) CONSTIPATION diazepam (From Valium) Adverse Reaction (Verified 04/17/25 10:20) Hypertension Medication List - Last Reconciled 05/10/25 by RIKY CrawleyC albuterol sulfate 90 mcg/actuation 1 inh inhalation QID aripiprazole 10 mg PO DAILY buprenorphine-naloxone 8-2 mg (Suboxone) 1 film sublingual QID 30 days buspirone 30 mg PO BID cetirizine (Zyrtec) 10 mg PO DAILY PRN dextroamphetamine-amphetamine 10 mg (Adderall) 10 mg PO DAILY fluticasone furoate 50 mcg/actuation inhalation gabapentin 600 mg PO DAILY ibuprofen 600 mg PO Q6H PRN lidocaine 5% (Lidoderm) 1 patch topical DAILY polyethylene glycol 3350 17 grams PO DAILY PRN sennosides (Natural Senna Laxative) 8.6 mg PO DAILY sertraline 100 mg PO DAILY tizanidine (Zanaflex) 4 mg PO BEDTIME PRN HPI Comments Details: The patient is a 50 year old male who presents for a one month MAT follow up. Reports since being prescribed sublingual buprenorphine-naloxone 8-2 mg strips/QID he feels stable and is doing well, denies opioids use or other substances at present time of visit. The patient is engaged in mental health services at [facility]. Reports currently the main stressor is being homeless and staying at different friend's houses. Review of Systems Const All systems reviewed & are unremarkable except as noted in HPI and below Psych Reports as per HPI Physical Exam Vital Signs: Last Vital Signs Pulse 75 05/10/25 09:39 BP 136/96 H 05/10/25 09:39 Pulse Ox 99 05/10/25 09:39 Oxygen Delivery Method Room Air 05/10/25 09:39 Const General: cooperative and well groomed Orientation/consciousness: patient oriented x3 Limitations: no limitations Neuro General: patient oriented x3 Psych Appearance: well kempt Mental Status: mental status grossly normal Speech and movement: Normal speech and movement present Affect: normal affect Attitude: cooperative Thought process: Normal thought process present Thought content: Normal thought content present Insight: Good insight present (Psych) Judgement: Good judgement present (Psych) PFSH Medical History Substance abuse HTN (hypertension) Alcoholism Social History Alcohol intake: current Patient Tobacco Use Status: Current someday Tobacco user Substance Use Type: Crack/Cocaine Substance History: Denies active use at time of visit. Assessment & Plan Assessment & Plan (1) Opioid use disorder, severe, dependence: Comment: He is taking Suboxone pills Code(s): F11.20 - Opioid dependence, uncomplicated Category: Medical (2) Alcohol use disorder, severe, dependence: Code(s): F10.20 - Alcohol dependence, uncomplicated Category: Medical Plan The plan of care is for patient to continue on sublingual buprenorphine-naloxone 8-2 mg, QID and follow up in two months or sooner if needed. Education provided re: smoking cessation and or risk reduction method. Medications: Refilled buprenorphine-naloxone 8-2 mg (Suboxone) 1 film sublingual QID 120 ea 1RF 30 days Patient Instructions: The patient is to follow up in two months or sooner, if needed. Education provided re: smoking cessation and or reduction. Encouraged to follow up with community resources, [employer] for assistance with being homeless,
--- OUTSIDE RECORDS SUMMARY | 2025-05-10 09:44 | XMS_ITS | Encounter Summary ---
Author Organization [employer] Address [address] [facility] 7 [place] [address] Care Team Providers Care Displayer Name Role Phone Roberta Wilde MD Primary Care Provider [phone] Encounter Details Date Type Department Care Team (Late st Contact Info) Description 10/14/[address] [place] Information Management [address] [place] [address] Roberta Wilde MD [address] [place] [address] Social History Tobacco Use Types Packs/Day Years [...] Care Team (Late st Contact Info) Description 06/07/2025 10:20 AM EDT Office Visit Ana [facility] [address] [place] [address] Roberta Wilde MD [address] [place] [address] documented as of this encounter Procedures Procedure [...] on filedocumented in this encounter Care Teams Displayer Relationship Specialty Start Date End Date Roberta Wilde MD [address] [place] [address] PCP - General Family Medicine 12/03/22 documented as of this encounter
--- OUTSIDE RECORDS SUMMARY | 2025-05-10 09:44 | XMS_ITS | Referral Summary ---
Author Organization [facility] Address [address] [place] [address] Care Team Providers Care Allied Health Professional Name Role Phone Moises Castellanos Primary Care Provider [phone] Medications propranoloL (INDERAL) 40 mg tablet Take [...] 80 10/20/2021 12:54 AM EST Temperature 36.8 C (98.3 F) 10/19/2021 11:06 PM EST Respiratory Rate 16 10/20/2021 12:54 AM EST Oxygen Saturation 98% 10/20/2021 12:54 AM EST Inhaled Oxygen Concentration - - Weight 95.3 kg (210 lb) 10/19/2021 11:04 PM EST Height 167.6 cm (5' 6 ) 10/19/2021 11:04 PM EST Body Mass Index 33.89 10/19/2021 11:04 PM EST Plan of Treatment Not on file Insurance [facility] [id number] Care Teams Allied Health Professional Relationship Specialty Start Date End Date Moises Castellanos [facility] [place] [address] PCP - General Internal Medicine 10/09/21
== END 2025-05-10 10:51 | disposition home or self-care (01) ==
PROVIDERS: PCP Family Medicine; Visit Provider Clinical Nurse Specialist Psychiatric/Mental Health
DX: F11.20 Opioid dependence, uncomplicated (principal); F10.20 Alcohol dependence, uncomplicated
CPT/HCPCS: 99213

== ENCOUNTER → 2025-05-10 09:29 | Outpatient (BNVA) | payer OTHER, MEDICAID, SELFPAY | PROVIDERS: PCP Family Medicine; Visit Provider Clinical Nurse Specialist Psychiatric/Mental Health | DX: F11.20 Opioid dependence, uncomplicated (principal); F10.20 Alcohol dependence, uncomplicated | CPT/HCPCS: 99212 ==

== ENCOUNTER 2025-05-24 11:56 | Outpatient (RCR) | payer OTHER, MEDICAID, SELFPAY | END 2025-06-12 08:42 | disposition home or self-care (01) | LOC: HO.PT 11:56 | PROVIDERS: PCP Family Medicine; Visit Provider Internal Medicine | DX: M54.50 Low back pain, unspecified (principal); M54.6 Pain in thoracic spine; R51.9 Headache, unspecified | CPT/HCPCS: 97110; 97140; 97162; 97530 ==

== ENCOUNTER 2025-08-11 13:54 | Outpatient (AMB) | payer MEDICAID, SELFPAY ==
--- OUTSIDE RECORDS SUMMARY | 2025-08-11 14:00 | XMS_ITS | Encounter Summary ---
Author Organization [employer] Address [address] [place] [address] Care Team Providers Care Modern Dancer Name Role Phone Roberta Wilde MD Primary Care Provider [phone] Reason for Visit * Reason Onset Date Comments PT-1 08/24/2024 Encounter Details Date Type Department Care Team ([facility] st Contact Info) Description 08/24/2024 Telephone [facility] MEDICAL [address] [place], [place] [id number] Roberta Wilde MD [address] [place] [address] PT-1 Social History Tobacco Use Types Packs/Day [...] EDT Active PT-1 for this pt for [address] approved 08/17/24, exp 08/17/25. * Telephone Encounter - Marina Flores - 08/24/2024 10:44 AM EDT Pt-1 Request/Renewal: Letter from [facility] Name of Treating Provider/Treating Facility: [facility] Address of Treating Facility: [address] [place] [id number] Number of Visits Requested: N/A Patient's Physical Address: [address] [place] [address] Date of Expiration: documented in this encounter Plan of Treatment Not on file documented as of this encounter Visit Diagnoses Not on filedocumented in this encounter Care Teams Modern Dancer Relationship Specialty Start Date End Date Roberta Wilde MD [address] [place] [address] PCP - General Family Medicine 12/03/22 documented as of this encounter
--- OUTSIDE RECORDS SUMMARY | 2025-08-11 14:00 | XMS_ITS | Encounter Summary ---
Author Organization [employer] Address [address] [place] [address] [place] [address] Care Team Providers Care Ssrs Report Developer Name Role Phone Roberta Wilde MD Primary Care Provider [phone] Reason for Visit * Reason Onset Date Comments Med Refill 07/24/2023 Encounter Details Date Type Department Care Team (Late st Contact Info) Description 07/24/2023 Refill [facility] MED[facility] [address] [place] [address] Roberta Wilde MD [address] [place] [address] Chronic midline low back pain with bilateral [...] ADHD, impulsive type Antisocial personality disorder (CMS/HCC) (HCC) Antisocial personality disorder documented in this encounter Care Teams Ssrs Report Developer Relationship Specialty Start Date End Date Roberta Wilde MD [address] [place] [address] PCP - General Family Medicine 12/03/22 documented as of this encounter
--- OUTSIDE RECORDS SUMMARY | 2025-08-11 14:00 | XMS_ITS | Encounter Summary ---
Author Organization [employer] Address [address] [place] [address] 7 [place] [address] Care Team Providers Care Cardiology Consultants Name Role Phone Roberta Wilde MD Primary Care Provider [phone] Reason for Visit * Reason Onset Date Comments Med Refill 01/15/2025 Encounter Details Date Type Department Care Team (Late st Contact Info) Description 01/15/2025 Refill [employer] [facility] [address] [place] [address] Araceli Sorto MD [address] [place] [address] Vitamin D deficiency Social History Tobacco Use Types Packs/Day Years Used Date Smoking Tobacco: Every Day Cigarettes 0.5 0.5 Started: 07/31/2024 Passive Smoke Exposure: Current Smokeless Tobacco: Never Alcohol Use Standard Drinks/Week Comments Not Currently 210 (1 standard drin k = 0.6 oz pure alcohol) I've been in recovery for 3 years now. Housing Stability Answer Date Recorded What is [...] * Telephone Encounter - CORRINE Candelario - 01/16/2025 7:48 AM EDT duplicate documented in this encounter Plan of Treatment Not on file documented as of this encounter Visit Diagnoses Diagnosis Vitamin D deficiency documented in this encounter Care Teams Cardiology Consultants Relationship Specialty Start Date End Date Roberta Wilde MD [address] [place] [address] PCP - General Family Medicine 12/03/22 documented as of this encounter
--- OUTSIDE RECORDS SUMMARY | 2025-08-11 14:00 | XMS_ITS | Encounter Summary ---
Author Organization [employer] Address [address] [place] [address] Care Team Providers Care Supervisor Net Making Name Role Phone Roberta Wilde MD Primary Care Provider [phone] Reason for Visit * Reason Comments Case Management Encounter Details Date Type Department Care Team ([facility] Contact Info) Description 10/07/2024 Telephone [facility] [address] [place] [address] Mariannefebruary Case Management Social History Tobacco Use Types [...] as of this encounter Plan of Treatment Not on file documented as of this encounter Visit Diagnoses Not on filedocumented in this encounter Care Teams Supervisor Net Making Relationship Specialty Start Date End Date Roberta Wilde MD [address] [place] [address] PCP - General Family Medicine 12/03/22 documented as of this encounter
--- OUTSIDE RECORDS SUMMARY | 2025-08-11 14:00 | XMS_ITS | Encounter Summary ---
Author Organization [employer] Address [address] [place] [address] Care Team Providers Care Leaf Coverer Name Role Phone Roberta Wilde MD Primary Care Provider [phone] Reason for Visit * Reason Comments Med Refill Encounter Details Date Type Department Care Team (Late st Contact Info) Description 06/19/2024 Refill Ana [facility] MED[facility] [address] [place] [address] Roberta Wilde MD [address] [place] [address] Antisocial personality disorder (CMS/HCC); ADHD, impulsive type [...] Visit Diagnoses Diagnosis Antisocial personality disorder (CMS/HCC) (HCC) Antisocial personality disorder ADHD, impulsive type documented in this encounter Care Teams Leaf Coverer Relationship Specialty Start Date End Date Roberta Wilde MD [address] [facility] [id number] PCP - General Family Medicine 12/03/22 documented as of this encounter
--- OUTSIDE RECORDS SUMMARY | 2025-08-11 14:00 | XMS_ITS | Encounter Summary ---
Author Organization [employer] Address [address] [place] [address] 7 [place] [address] Care Team Providers Care Telephone Service Adviser Name Role Phone Roberta Wilde MD Primary Care Provider [phone] Reason for Visit * Reason Onset Date Comments Labs Only 12/23/2024 Encounter Details Date Type Department Care Team (Late st Contact Info) Description 12/23/2024 Telephone [place] [facility] [address] [place] [address] Roberta Wilde MD [address] [place] [address] Labs Only Social History Tobacco Use Types [...] Miscellaneous Notes * Telephone Encounter - Kalie Lara LPN - 12/23/2024 12:57 PM EST Call [...] on filedocumented in this encounter Care Teams Telephone Service Adviser Relationship Specialty Start Date End Date Roberta Wilde MD [address] [place] [address] PCP - General Family Medicine 12/03/22 documented as of this encounter
--- OUTSIDE RECORDS SUMMARY | 2025-08-11 14:00 | XMS_ITS | Encounter Summary ---
Author Organization [employer] Address [address] [place] [address] Care Team Providers Care Financial Assistance Specialist Name Role Phone Roberta Wilde MD Primary Care Provider [phone] Reason for Visit * Reason Onset Date Comments Med Refill 07/30/2023 Encounter Details Date Type Department Care Team (Late st Contact Info) Description 07/30/2023 Refill [facility] MEDICAL [address] [place] [id number] Keri Davis FNP [address] [place] [address] ADHD, impulsive type Social History Tobacco Use [...] type documented in this encounter Care Teams Financial Assistance Specialist Relationship Specialty Start Date End Date Roberta Wilde MD [address] [place] [address] PCP - General Family Medicine 12/03/22 documented as of this encounter
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
--- OUTSIDE RECORDS SUMMARY | 2025-08-11 14:00 | XMS_ITS | Clinical Summary ---
Author Organization [facility] Address [address] [place] [address] Care Team Providers Care Door Person Name Role Phone Moises Castellanos Primary Care Provider [phone] Medications propranoloL (INDERAL) 40 mg tablet Take [...] 08/15/2014 Zoster Vaccines (1 of 2) 2023 Alcohol/Substance Use Screening 11/09/2024 COVID-19 Vaccine (3 - 2024- season) 2025, 04/07/2021 Influenza Vaccine (#1) 2025 8, 09/02/2017, 09/17/2016 RSV Vaccine (60+ years old a nd patients) (1 - 1-dose 75+ series) 2048 [place] [id number] Care Teams Door Person Relationship Specialty Start Date End Date Moises Castellanos [address] [place] [id number] PCP - General Internal Medicine 10/09/21
--- OUTSIDE RECORDS SUMMARY | 2025-08-11 14:00 | XMS_ITS | Encounter Summary ---
Author Organization [employer] Address [address] [place] [address] [address] [place] [address] Care Team Providers Care Knitted Goods Shaper Name Role Phone Roberta Wilde MD Primary Care Provider [phone] Encounter Details Date Type Department Care Team (Late st Contact Info) Description 09/05/2024 Orders Only [facility] [address] [place] [address] Roberta Wilde MD [address] [place] [address] Social History Tobacco Use Types Packs/Day Years [...] on file documented as of this encounter Procedures Procedure [...] on filedocumented in this encounter Care Teams Knitted Goods Shaper Relationship Specialty Start Date End Date Roberta Wilde MD [address] [place] [address] PCP - General Family Medicine 12/03/22 documented as of this encounter
--- OUTSIDE RECORDS SUMMARY | 2025-08-11 14:00 | XMS_ITS | Encounter Summary ---
Author Organization [employer] Address [address] [facility] [address] [place] [address] Care Team Providers Care Bench Assembler Operator Name Role Phone Roberta Wilde MD Primary Care Provider [phone] Encounter Details Date Type Department Care Team (Late st Contact Info) Description 09/20/2024 Orders Only [facility] [address] [place] [address] Roberta Wilde MD [address] [place] [address] Social History Tobacco Use Types Packs/Day Years [...] on filedocumented in this encounter Care Teams Bench Assembler Operator Relationship Specialty Start Date End Date Roberta Wilde MD [address] [place] [address] PCP - General Family Medicine 12/03/22 documented as of this encounter
--- OUTSIDE RECORDS SUMMARY | 2025-08-11 14:00 | XMS_ITS | Encounter Summary ---
Author Organization [employer] Address [address] [place] [address] [address] [place] [address] Care Team Providers Care Trick Rodeo Rider Name Role Phone Roberta Wilde MD Primary Care Provider [phone] Reason for Visit * Reason Comments Care Management Encounter Details Date Type Department Care Team (Late st Contact Info) Description 09/13/2024 Telephone [facility] [address] [place], [place] [id number] Jhonny, February Care Management Social History Tobacco Use Types [...] on filedocumented in this encounter Care Teams Trick Rodeo Rider Relationship Specialty Start Date End Date Roberta Wilde MD [address] [place] [address] PCP - General Family Medicine 12/03/22 documented as of this encounter
--- OUTSIDE RECORDS SUMMARY | 2025-08-11 14:00 | XMS_ITS | Encounter Summary ---
Author Organization [employer] Address [address] [facility] 7t [place] [address] Care Team Providers Care Circuit Tester Name Role Phone Roberta Wilde MD Primary Care Provider [phone] Encounter Details Date Type Department Care Team (Late st Contact Info) Description 10/10/2024 Orders Only [place] [facility] MEDICAL [address] [place] [address] Roberta Wilde MD [address] [place] [address] Antisocial personality disorder (CMS/HCC); Abnormal prostate specific [...] Visit Diagnoses Diagnosis Antisocial personality disorder (CMS/[facility]) (HCC) Antisocial personality disorder Abnormal prostate specific antigen (PSA) Impulse control disorder Impulse control disorder, unspecified Chronic midline low back pain with bilateral sciatica Alcohol use disorder, severe, in early remission (CMS/HCC) (HCC) Allergic rhinitis, unspecified seasonality, unspecified trigger documented in this encounter Care Teams Circuit Tester Relationship Specialty Start Date End Date Roberta Wilde MD [address] [place] [address] PCP - General Family Medicine 12/03/22 documented as of this encounter
--- OUTSIDE RECORDS SUMMARY | 2025-08-11 14:00 | XMS_ITS | Encounter Summary ---
Author Organization [employer] Address [address] [facility] 7 [place] [address] Care Team Providers Care Isotope Technician Name Role Phone Roberta Wilde MD Primary Care Provider [phone] Encounter Details Date Type Department Care Team (Late st Contact Info) Description 10/14/2024 Orders Only [place] [facility] [address] [place] [address] Roberta Wilde MD [address] [place] [address] Social History Tobacco Use Types Packs/Day Years [...] on filedocumented in this encounter Care Teams Isotope Technician Relationship Specialty Start Date End Date Roberta Wilde MD [address] [place] [address] PCP - General Family Medicine 12/03/22 documented as of this encounter
--- OUTSIDE RECORDS SUMMARY | 2025-08-11 14:00 | XMS_ITS | Encounter Summary ---
Author Organization [employer] Address [address] [place] [address] 7 [place] [address] Care Team Providers Care Horser Up Name Role Phone Roberta Wilde MD Primary Care Provider Reason for Visit * Reason Comments Med Refill Encounter Details Date Type Department Care Team (Late st Contact Info) Description 09/28/2024 Refill [place] [facility] MED[facility] [address] [place] [address] Roberta Wilde MD [address] [place] [address] Chronic midline low back pain with bilateral [...] disorder, severe, in early remission (CMS/HCC) (HCC) Antisocial personality disorder (CMS/HCC) (HCC) Antisocial personality disorder documented in this encounter Care Teams Horser Up Relationship Specialty Start Date End Date Roberta Wilde MD [address] [place] [address] PCP - General Family Medicine 12/03/22 documented as of this encounter
--- OUTSIDE RECORDS SUMMARY | 2025-08-11 14:00 | XMS_ITS | Encounter Summary ---
Author Organization [employer] Address [address] [place] [address] Care Team Providers Care Enrober Name Role Phone Roberta Wilde MD Primary Care Provider [phone] Reason for Visit * Reason Onset Date Comments PT-1 08/17/2024 Encounter Details Date Type Department Care Team (Late st Contact Info) Description 08/17/2024 Telephone [facility] MEDICAL [address] [place], [place] [id number] Roberta Wilde MD [address] [place] [address] PT-1 Social History Tobacco Use Types Packs/Day [...] Candelario - 08/17/2024 4:36 PM EDT PT-1 [id number] authorized * Telephone Encounter - CORRINE Candelario - 08/17/2024 11:30 AM EDT PT-1 request is submitted- [facility] PT-1 Request Number [id number] is Pending * Telephone Encounter - Marina Flores - 08/17/2024 10:51 AM EDT Pt-1 Request/Renewal: Letter From [facility] Name of Treating Provider/Treating Facility: [facility] Address of Treating Facility: [address] [place] [address] Number of Visits Requested: N/A Patient's Physical Address: [facility] Letter has [address] [place] [address] Date of Expiration: 09/11/2024 documented in this encounter Plan of Treatment Not on file documented as of this encounter Visit Diagnoses Not on filedocumented in this encounter Care Teams Enrober Relationship Specialty Start Date End Date Roberta Wilde MD [address] [place] [address] PCP - General Family Medicine 12/03/22 documented as of this encounter
--- OUTSIDE RECORDS SUMMARY | 2025-08-11 14:00 | XMS_ITS | Encounter Summary ---
Author Organization [employer] Address [address] [place] [address] 7 [place] [address] Care Team Providers Care Machine Setter Sheet Metal Name Role Phone Roberta Wilde MD Primary Care Provider [phone] Encounter Details Date Type Department Care Team (Late st Contact Info) Description 09/09/2024 Orders Only [place] [facility] [address] [place] [address] Roberta Wilde MD [address] [place] [address] Social History Tobacco Use Types Packs/Day Years [...] ECG 12 lead (09/09/2024 2:22 PM EDT) Roberta Wilde MD ECG ORDERABLES Final Result documented in this encounter Visit Diagnoses Not on filedocumented in this encounter Care Teams Machine Setter Sheet Metal Relationship Specialty Start Date End Date Roberta Wilde MD [address] [place] [address] PCP - General Family Medicine 12/03/22 documented as of this encounter
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
--- OUTSIDE RECORDS SUMMARY | 2025-08-11 14:01 | XMS_ITS | Encounter Summary ---
Author Organization [employer] Address [address] [place] [address] [place] [address] Care Team Providers Care Founder President And Ceo Name Role Phone Roberta Wilde MD Primary Care Provider [phone] Reason for Visit * Reason Onset Date Comments Med Refill 01/02/2025 Encounter Details Date Type Department Care Team (Late st Contact Info) Description 01/02/2025 Refill [facility] MEDICAL [address] [place] [address] Roberta Wilde MD [address] [place] [address] Antisocial personality disorder (CMS/HCC); ADHD, impulsive type [...] type documented in this encounter Care Teams Founder President And Ceo Relationship Specialty Start Date End Date Roberta Wilde MD 70 [place] [address] PCP - General Family Medicine 12/03/22 documented as of this encounter
--- OUTSIDE RECORDS SUMMARY | 2025-08-11 14:01 | XMS_ITS | Encounter Summary ---
Author Organization [employer] Address [address] [facility] 7 [place] [address] Care Team Providers Care Director Of Capital Giving Name Role Phone Roberta Wilde MD Primary Care Provider Encounter Details Date Type Department Care Team (Late st Contact Info) Description 12/26/2024 Orders Only [place] [facility] [address] [place] [address] Roberta Wilde MD [address] [place] [address] Social History Tobacco Use Types Packs/Day Years [...] EST) Blood Venous blood specimen / Unknown Roberta Wilde MD LAB BLOOD ORDERABLES Final Res ult documented in this encounter Visit Diagnoses Not on filedocumented in this encounter Care Teams Director Of Capital Giving Relationship Specialty Start Date End Date Roberta Wilde MD [address] [place] [address] PCP - General Family Medicine 12/03/22 documented as of this encounter
[2025-08-11 14:04] VITALS: PULSE 70; O2SAT 99; BMI 37.0
== END 2025-08-11 14:36 | disposition home or self-care (01) ==
LOC: HO.HCC 13:54
PROVIDERS: PCP Family Medicine; Visit Provider Internal Medicine
DX: F11.20 Opioid dependence, uncomplicated (principal)
CPT/HCPCS: 99213

== ENCOUNTER → 2025-08-11 13:54 | Outpatient (BNVA) | payer OTHER, MEDICAID, SELFPAY | PROVIDERS: PCP Family Medicine; Visit Provider Internal Medicine | DX: F11.20 Opioid dependence, uncomplicated (principal) | CPT/HCPCS: 99212 ==

== ENCOUNTER 2025-08-18 14:23 | Outpatient (AMB) | payer MEDICAID, SELFPAY ==
[2025-08-18 14:30] VITALS: BP 122/78; PULSE 62; O2SAT 98
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
== END 2025-08-18 14:59 | disposition home or self-care (01) ==
LOC: HO.HCC 14:23
PROVIDERS: PCP Family Medicine; Visit Provider Internal Medicine
DX: F11.20 Opioid dependence, uncomplicated (principal)
CPT/HCPCS: 99213

== ENCOUNTER → 2025-08-18 14:23 | Outpatient (BNVA) | payer MEDICAID, SELFPAY | PROVIDERS: PCP Family Medicine; Visit Provider Internal Medicine | DX: F11.20 Opioid dependence, uncomplicated (principal) | CPT/HCPCS: 99212 ==

== ENCOUNTER 2025-08-25 13:55 | Outpatient (AMB) | payer MEDICAID, SELFPAY ==
[2025-08-25 14:00] VITALS: BP 140/80; PULSE 76; O2SAT 98
--- NOTE | 2025-08-25 14:00 | MHC.OFFVIS ---
Vital Signs 08/25/25 14:00 Height 5 ft 6 in BP 140/80 H Pulse 76 Pulse Oximetry (%) 98 Intake Visit Reasons: MAT Allergies codeine (CODEINE) Allergy (Unknown, Verified 08/25/25 14:01) CONSTIPATION diazepam (From Valium) Adverse Reaction (Verified 08/25/25 14:01) Hypertension HPI Comments Details: History of Present Illness The patient is a 50-year-old male presenting with opioid use disorder. He has transitioned from using 75 mg of methadone to Suboxone 8/2 mg three times daily. He feels well and does not report any current complaints, including the absence of constipation. The patient has a stable living situation and good transportation. He does have Narcan His sister is also in recovery, and while they sometimes talk, he reports doing well overall. Review of Systems - General: Reports feeling well - Gastrointestinal: Denies constipation Physical Exam - Vitals- Stable Results Plan Patient was informed and verbally consented to the use of an ambient scribe for clinic note documentation during this visit. 1. Opioid use, unspecified, uncomplicated F11.90 The patient continues on Suboxone 8/2 mg TID with successful transition from methadone and effective maintenance of opioid use disorder. He is prepared with Narcan and has a one-month Suboxone supply confirmed. The current treatment strategy is to be monitored and adjusted if needed upon follow-up in one month. Discussion Notes I discussed with the patient the continuation of Suboxone 8/2 mg TID, which has successfully maintained his condition post-methadone. The importance of monitoring his condition and using Narcan in case of emergencies was emphasized. The patient understands the value of the transition and the stability Suboxone provides. A follow-up visit is scheduled in one month to assess the management's effectiveness and consider necessary adjustments. Medical Decision Making The patient's condition is stable on the current Suboxone regimen following a successful transition from methadone. Considerations taken into account include the patient's stable living situation, access to Narcan, and effective management of opioid use disorder without adverse symptoms like constipation. The recommended follow-up in one month will verify continued efficacy and tolerance of the treatment. The goal remains to maintain stability and prevent relapse. Patient Instructions - Continue taking Suboxone 8/2 mg three times daily as prescribed. - Keep Narcan available for emergency use. - Attend follow-up appointment in one month. - Contact if any issues arise or in case of an emergency. [facility] Medical History Substance abuse HTN (hypertension) Alcoholism Social History Alcohol intake: current Patient Tobacco Use Status: Current someday Tobacco user Substance Use Type: Crack/Cocaine Physical Exam Vital Signs: Last Vital Signs Pulse 76 08/25/25 14:00 BP 140/80 H 08/25/25 14:00 Pulse Ox 98 08/25/25 14:00 Assessment & Plan Assessment & Plan (1) Opioid use disorder, severe, dependence: Comment: He is taking Suboxone strips Code(s): F11.20 - Opioid dependence, uncomplicated Category: Medical Plan: n/a Plan n/a Medications: New buprenorphine-naloxone 8-2 mg (Suboxone) 1 film sublingual TID 90 ea 0RF 30 days Coding Level of Care Code Est Pt Level 3 (17967) Diagnoses Opioid use disorder, severe, dependence F11.20
--- OUTSIDE RECORDS SUMMARY | 2025-08-25 16:24 | XMS_ITS | Encounter Summary ---
Author Organization [employer] Address [address] [place] [address] 7 [place] [address] Care Team Providers Care Power Sewing Machine Operator Name Role Phone Roberta Wilde MD Primary Care Provider [phone] Reason for Visit * Reason Comments Med Refill Encounter Details Date Type Department Care Team (Late st Contact Info) Description 09/28/2024 Refill [place] [facility] MED[facility] [address] [place] [address] Roberta Wilde MD [address] [place] [address] Chronic midline low back pain with bilateral [...] Care Team (Late st Contact Info) Description 09/27/2025 4:00 PM EST Telemedicine [facility] MEDICAL [address] [place] [address] Roberta Wilde MD [address] [place] [address] 10/13/2025 12:20 PM EST Office Visit [facility] MEDICAL [address] [place] [address] Roberta Wilde MD [address] [place] [address] documented as of this encounter Visit Diagnoses Diagnosis Chronic midline low back pain with bilateral sciatica Alcohol use disorder, severe, in early remission (CMS/HCC) (HCC) Antisocial personality disorder (CMS/HCC) (HCC) Antisocial personality disorder documented in this encounter Care Teams Power Sewing Machine Operator Relationship Specialty Start Date End Date Roberta Wilde MD [address] [place] [address] PCP - General Family Medicine 12/03/22 documented as of this encounter
--- OUTSIDE RECORDS SUMMARY | 2025-08-25 16:24 | XMS_ITS | Encounter Summary ---
Author Organization [employer] Address [address] [facility] 7t [place] [address] Care Team Providers Care Brakes Inspector Name Role Phone Roberta Wilde MD Primary Care Provider [phone] Encounter Details Date Type Department Care Team (Late st Contact Info) Description 08/23/2025 Telephone [facility] MED[facility] [address] [place] [address] Roberta Wilde MD [address] [place] [address] Social History Tobacco Use Types Packs/Day Years [...] * Telephone Encounter - Starr Johnson - 08/24/2025 12:02 PM EDT PT-1 no longer needed * Telephone Encounter - Krystyna Orr - 08/23/2025 2:55 PM EDT Pt-1 Request/Renewal: mailed in Name of Treating Provider/Treating Facility: [facility]ip[facility] Address of Treating Facility: [address] [place] [address] Patient's Physical Address: [address] [place] [address] (This is on the request form) Date of Expiration: 09/16/2025 [facility] Number: [id number] Does the patient need door to door service? Does the member have an escort? Does the member carry self-administer oxygen? Will the member need to be transported with a wheelchair? If so, what kind of wheelchair, electric or manual. Does the member have a service animal? documented in this encounter Plan of Treatment Upcoming Encounters Date Type Department Care Team (Late st Contact Info) Description 09/27/2025 4:00 PM EST Telemedicine [facility] MED[facility] [address] [place], [place] [phone] Roberta Wilde MD [address] [place], [place] 10/13/2025 12:20 PM EST Office Visit [facility] MED[facility] [address] [place] [address] Roberta Wilde MD [address] [place] [address] documented as of this encounter Visit Diagnoses Not on filedocumented in this encounter Care Teams Brakes Inspector Relationship Specialty Start Date End Date Roberta Wilde MD [address] [place] [address] PCP - General Family Medicine 12/03/22 documented as of this encounter
--- OUTSIDE RECORDS SUMMARY | 2025-08-25 16:24 | XMS_ITS | Encounter Summary ---
Author Organization [employer] Address 75 [facility] 7 [place] [address] Care Team Providers Care Auditing Specialist Name Role Phone Roberta Wilde MD Primary Care Provider [phone] Reason for Visit * Reason Onset Date Comments Med Refill 08/24/2025 Encounter Details Date Type Department Care Team (Late st Contact Info) Description 08/24/2025 Refill [facility] MEDICAL [address] [place] [address] Roberta Wilde MD [address] [place] [address] ADHD, impulsive type; Antisocial personality disorder (CMS/HCC) (HCC) Social History Tobacco Use Types Packs/Day Years [...] Telephone Encounter - Starr Johnson - 08/24/2025 10:08 AM EDT MassPat the same for both meds Masspat Last fill Date: 08.04.25 Masspat sold Date: 08.04.25 Last OV: 7.30. Next OV: 11. Last UTOX: 2.18.25 CSA Date: Due DNF Date: 08.02.25 * Telephone Encounter - Yamila Kennedy - 08/24/2025 9:42 AM EDT Patient called to refill prescriptions: amphetamine-dextroamphetamine (Adderall) 20 MG tablet Sig: Take 1 tablet (20 mg) by mouth 2 times daily for 28 days. Patient states he takes it 2x/day and has enough until Thursday (08/28/25). lisdexamfetamine (Vyvanse) 50 MG capsule Sig: Take 1 capsule (50 mg) by mouth in the morning. Patient states he takes it 2x/day and has enough until Thursday (08/28/25). Pharmacy: [id number] - [place] - [address] [place] [address] [[id number]] JORGE: 06/07/25 NOV: 09/27/25 video and 10/13/25 in person documented in this encounter Plan of Treatment Upcoming Encounters Date Type Department Care Team (Late st Contact Info) Description 09/27/2025 4:[address] [facility] MEDICAL [facility] [place] [address] Roberta Wilde MD [address] [place] [address] 10/13/2025 12:20 PM EST Office Visit [facility] MEDICAL 70 [place] [address] Roberta Wilde MD 70 [place] [address] documented as of this encounter Visit Diagnoses Diagnosis ADHD, impulsive type Antisocial personality disorder (CMS/HCC) (HCC) Antisocial personality disorder documented in this encounter Care Teams Auditing Specialist Relationship Specialty Start Date End Date Roberta Wilde MD [address] [place] [address] PCP - General Family Medicine 12/03/22 documented as of this encounter
--- OUTSIDE RECORDS SUMMARY | 2025-08-25 16:24 | XMS_ITS | Encounter Summary ---
Author Organization [employer] Address [address] [place] [address] Care Team Providers Care Air Brake Operator Name Role Phone Roberta Wilde MD Primary Care Provider [phone] Reason for Visit * Reason Onset Date Comments PT-1 08/17/2024 Encounter Details Date Type Department Care Team (Late st Contact Info) Description 08/17/2024 Telephone [facility] MEDICAL [address] [place], [place] [id number] Roberta Wilde MD 70 [place] [address] PT-1 Social History Tobacco Use Types Packs/Day [...] Candelario - 08/17/2024 4:36 PM EDT PT-1 [id number] authorized * Telephone Encounter - CORRINE Candelario - 08/17/2024 11:30 AM EDT PT-1 request is submitted- [facility] PT-1 Request Number [id number] is Pending * Telephone Encounter - Craven Sandra - 08/17/2024 10:51 AM EDT Pt-1 Request/Renewal: Letter From [facility] Name of Treating Provider/Treating Facility: [facility] Address of Treating Facility: [address] [place] [address] Number of Visits Requested: N/A Patient's Physical Address: [facility] [address] Letter has 5 [place] [address] Date of Expiration: 09/11/2024 documented in this encounter Plan of Treatment Upcoming Encounters Date Type Department Care Team (Late st Contact Info) Description 09/27/2025 4:00 PM EST Telemedicine [facility] MEDICAL 70 [place] [address] Roberta Wilde MD [address] [place] 10/13/2025 12:20 PM EST Office Visit [facility] [address] [place] [address] Roberta Wilde MD 70 [place] [address] documented as of this encounter Visit Diagnoses Not on filedocumented in this encounter Care Teams Air Brake Operator Relationship Specialty Start Date End Date Roberta Wilde MD 70 [place] [address] PCP - General Family Medicine 12/03/22 documented as of this encounter
--- OUTSIDE RECORDS SUMMARY | 2025-08-25 16:24 | XMS_ITS | Encounter Summary ---
Author Organization [employer] Address [address] [place] [address] Care Team Providers Care Associate Consulting Engineer Name Role Phone Roberta Wilde MD Primary Care Provider [phone] Reason for Visit * Reason Onset Date Comments Med Refill 07/30/2023 Encounter Details Date Type Department Care Team (Late st Contact Info) Description 07/30/2023 Refill [facility] MEDICAL [address] [place] [id number] Keri Davis FNP 70 [place] [address] ADHD, impulsive type Social History Tobacco Use [...] 4:00 PM EST Telemedicine [facility] MEDICAL [address] [place] [address] Roberta Wilde MD 70 [place] [address] 10/13/2025 12:20 PM EST Office Visit [facility] MED[facility] 70 [place] [address] Roberta Wilde MD 70 [place] [address] documented as of this encounter Visit Diagnoses Diagnosis ADHD, impulsive type documented in this encounter Care Teams Associate Consulting Engineer Relationship Specialty Start Date End Date Roberta Wilde MD 70 [place] [address] PCP - General Family Medicine 12/03/22 documented as of this encounter
--- OUTSIDE RECORDS SUMMARY | 2025-08-25 16:24 | XMS_ITS | Encounter Summary ---
Author Organization [employer] Address 75 [facility] 7 [place] [address] Care Team Providers Care Drop Wire Aliner Name Role Phone Roberta Wilde MD Primary Care Provider [phone] Reason for Visit * Reason Onset Date Comments PT1 08/25/2025 Encounter Details Date Type Department Care Team (Late st Contact Info) Description 08/25/2025 Telephone [facility] MEDICAL [address] [place] [address] Roberta Wilde MD 70 [place] [address] PT1 Social History Tobacco Use Types Packs/Day [...] encounter Miscellaneous Notes * Telephone Encounter - Magi Lee - 08/25/2025 11:09 AM EDT Pt-1 Renewal: Name of Treating Provider/Treating Facility: [facility] Address of Treating Facility: [address] [place] [address] Number of Visits Requested: 4 times a month Patient's Physical Address: [address] [place] [address] Date of Upcoming Appt: 09/01 Pt-1 Renewal: Name of Treating Provider/Treating Facility: [facility] Address of Treating Facility: [address] [place] [address] Number of Visits Requested: 10 Patient's Physical Address: [address] [place] [address] Date of Upcoming Appt:10/13 Pt-1 Renewal: Name of Treating Provider/Treating Facility: [facility] Address of Treating Facility: [address] [place] [address] Number of Visits Requested: 2 TIMES A MONTH Patient's Physical Address: Date of Upcoming Appt: TBD documented in this encounter Plan of Treatment Upcoming Encounters Date Type Department Care Team (Late st Contact Info) Description 09/27/2025 4:00 PM EST Telemedicine [facility] MEDICAL 70 [place] [address] Roberta Wilde MD 70 [place] [address] 10/13/2025 12:20 PM EST Office Visit [facility]ICAL [facility] [place] [address] oRberta Wilde MD 70 [place] [address] documented as of this encounter Visit Diagnoses Not on filedocumented in this encounter Care Teams Drop Wire Aliner Relationship Specialty Start Date End Date Roberta Wilde MD 70 [place] [address] PCP - General Family Medicine 12/03/22 documented as of this encounter
--- OUTSIDE RECORDS SUMMARY | 2025-08-25 16:24 | XMS_ITS | Encounter Summary ---
Author Organization [employer] Address 75 [facility] 7 [place] [address] Care Team Providers Care Or First Assist Registered Nurse Name Role Phone Roberta Wilde MD Primary Care Provider [phone] Encounter Details Date Type Department Care Team (Late st Contact Info) Description 10/14/2024 Orders Only [facility] [address] [place] [address] Roberta Wilde MD 70 [place] [address] Social History Tobacco Use Types Packs/Day Years [...] Info) Description 09/27/2025 4:00 PM EST Telemedicine [facility] MEDICAL 70 [place] [address] Roberta Wilde MD 70 [place] [address] 10/13/2025 12:20 PM EST Office Visit [facility] 70 [place] [address] Roberta Wilde MD 70 [place] [address] documented as of this encounter Procedures Procedure [...] on filedocumented in this encounter Care Teams Or First Assist Registered Nurse Relationship Specialty Start Date End Date Roberta Wilde MD 70 [place] [address] PCP - General Family Medicine 12/03/22 documented as of this encounter
--- OUTSIDE RECORDS SUMMARY | 2025-08-25 16:24 | XMS_ITS | Encounter Summary ---
Author Organization [employer] Address [address] [place] [address] Care Team Providers Care Carbon Brusher Assembler Name Role Phone Roberta Wilde MD Primary Care Provider [phone] Reason for Visit * Reason Comments Case Management Encounter Details Date Type Department Care Team ([facility] Contact Info) Description 10/07/2024 Telephone [facility] [address] [place] [address] Mariannefebruary Case Management Social History [...] Telemedicine [facility] MEDICAL [address] [place] [address] Roberta Wilde MD 70 [place] [address] 10/13/2025 12:20 PM EST Office Visit [facility] MEDICAL [address] [place] [address] Roberta Wilde MD [address] [place] [address] documented as of this encounter Visit Diagnoses Not on filedocumented in this encounter Care Teams Carbon Brusher Assembler Relationship Specialty Start Date End Date Roberta Wilde MD [address] [place] [address] PCP - General Family Medicine 12/03/22 documented as of this encounter
--- OUTSIDE RECORDS SUMMARY | 2025-08-25 16:24 | XMS_ITS | Encounter Summary ---
Author Organization [employer] Address 75 [facility] 7 [place] [address] Care Team Providers Care African Studies Professor Name Role Phone Roberta Wilde MD Primary Care Provider [phone] Encounter Details Date Type Department Care Team (Late st Contact Info) Description 09/20/2024 Orders Only [facility] [address] [place] [address] Roberta Wilde MD [address] [place] [address] Social History Tobacco Use Types Packs/Day Years [...] Info) Description 09/27/2025 4:00 PM EST Telemedicine [facility] MEDICAL 70 [place] [address] Roberta Wilde MD [address] [place] [address] 10/13/2025 12:20 PM EST Office Visit [facility] 70 [place] [address] Roberta Wilde MD [address] [place] [address] documented as of this encounter Procedures Procedure Name Priority Date/Time Associated Diagnosis Comments ECG 12-LEAD Routine 09/18/2024 8:54 AM EST documented in this encounter Results * ECG 12 lead (09/18/2024 8:54 AM EST) Roberta Wilde MD ECG ORDERABLES Final Result documented in this encounter Visit Diagnoses Not on filedocumented in this encounter Care Teams African Studies Professor Relationship Specialty Start Date End Date Roberta Wilde MD [address] [place] [address] PCP - General Family Medicine 12/03/22 documented as of this encounter
--- OUTSIDE RECORDS SUMMARY | 2025-08-25 16:24 | XMS_ITS | Encounter Summary ---
Author Organization [employer] Address [address] [place] [address] 7 [place] [address] Care Team Providers Care Airplane Cleaner Name Role Phone Roberta Wilde MD Primary Care Provider [phone] Reason for Visit * Reason Onset Date Comments Med Refill 01/15/2025 Encounter Details Date Type Department Care Team (Late st Contact Info) Description 01/15/2025 Refill [facility] [place] MED[facility] 73 [place] [address] Araceli Sorto MD [address] [place] [address] Vitamin D deficiency Social History Tobacco Use [...] Info) Description 09/27/2025 4:00 PM EST Telemedicine [facility] MEDICAL 70 [place] [address] Roberta Wilde MD [address] [place] [address] 10/13/2025 12:20 PM EST Office Visit [facility] MEDICAL 70 [place] [address] Roberta Wilde MD 70 [place] [address] documented as of this encounter Visit Diagnoses Diagnosis Vitamin D deficiency documented in this encounter Care Teams Airplane Cleaner Relationship Specialty Start Date End Date Roberta Wilde MD 70 [place] [address] PCP - General Family Medicine 12/03/22 documented as of this encounter
--- OUTSIDE RECORDS SUMMARY | 2025-08-25 16:24 | XMS_ITS | Clinical Summary ---
Author Organization [employer] Address 75 [facility] 7t [place] [address] Care Team Providers Care Adjunct History Instructor Name Role Phone Roberta Wilde MD Primary Care Provider [phone] Allergies Active Allergy Reactions Criticality Noted Date [...] 8 g 5 08/04/20 25 026 Active ARIPiprazole (Abilify) 10 MG tabletIndicatio ns:Paranoia (CMS/HCC) (HCC) Take 1 tablet (10 mg) by mouth Once per day. 90 tablet 08/04/20 25 Active buprenorphine (Subtex) 8 MGIndications:B uprenorphine dependence (CMS/HCC) (HCC) Place 1 tablet (8 mg) under the tongue Once per day. 28 tablet 08/04/20 25 Active busPIRone (Buspar) 30 MG tabletIndicatio ns:Antisocial personality disorder (CMS/HCC) (HCC) Take 1 tablet (30 mg) by mouth [...] disorder, severe, in early remission (CMS/HCC) (HCC) Take 1 tablet (600 mg) by mouth [...] per day. 30 tablet 11 08/04/20 25 026 Active sertraline (Zoloft) 100 MG tabletIndicatio ns:Antisocial personality disorder (CMS/HCC) (HCC) Take 1 tablet (100 mg) by mouth Once per day. 90 tablet 08/04/20 25 025 Active sildenafil (Viagra) 50 MG tabletIndicatio ns:Erectile dysfunction, unspecified erectile dysfunction type Take 1 tablet (50 mg) by mouth if needed each day for erectile dysfunction. 30 tablet 3 08/04/20 25 026 Active tamsulosin (Flomax) 0.4 MG 24 hr capsuleIndicati ons:Abnormal prostate specific antigen (PSA) Take 1 capsule (0.4 mg) by mouth Once per day. 90 capsule 08/04/20 25 025 Active tiZANidine (Zanaflex) 4 MG tabletIndicatio ns:Chronic midline low back pain with bilateral sciatica Take 1 tablet (4 mg) by mouth 3 times daily for 20 days. 60 tablet 08/04/20 25 Active amphetamine-dex troamphetamine (Adderall) 20 MG tabletIndicatio ns:ADHD, impulsive type,Antisocial personality disorder (CMS/HCC) (HCC) Take 1 tablet (20 mg) by mouth 2 times daily for 28 days. 56 tablet 08/24/20 25 025 Active lisdexamfetamin e (Vyvanse) 50 MG capsuleIndicati ons:ADHD, impulsive type,Antisocial personality disorder (CMS/HCC) (HCC) Take 1 capsule (50 mg) by mouth in the morning. 28 capsule 08/24/20 25 Active nicotine polacrilex (Nicorette) 4 MG [...] 17 g by mouth Once per day. Discontinued(R eorder (will not trigger notification to [...] for moderate pain. 120 tablet 1 01/08/20 Discontinued(R eorder (will not trigger notification to [...] for erectile dysfunction. 30 tablet 3 05/03/20 25 025 Discontinued(R eorder (will not trigger [...] 30 MG tabletIndicatio ns:Antisocial personality disorder (CMS/HCC) (HCC) Take 1 tablet (30 mg) by mouth 2 times daily. 180 tablet 06/19/20 025 Discontinued(R eorder (will not trigger notification to Pharmacy)) Vyvanse 50 MG capsuleIndicati ons:Antisocial personality disorder (CMS/HCC) ([facility]),ADHD, impulsive type TAKE 1 CAPSULE BY MOUTH EVERY MORNING 28 capsule 06/28/20 25 025 Discontinued(R eorder (will not trigger notification to Pharmacy)) gabapentin (Neurontin) 600 MG tabletIndicatio ns:Chronic midline low back pain with bilateral sciatica,Alcoho l use disorder, severe, in early remission (CMS/HCC) ([facility]) Take 1 tablet (600 mg) by mouth 3 times daily. 84 tablet 07/18/20 25 025 Discontinued(R eorder (will not trigger notification to Pharmacy)) ARIPiprazole (Abilify) 10 MG tabletIndicatio ns:Paranoia (CMS/HCC) ([facility]) TAKE 1 TABLET (10 MG) BY MOUTH ONCE PER DAY. 90 tablet 07/31/20 25 025 Discontinued(R eorder (will not trigger notification to Pharmacy)) amphetamine-dex troamphetamine (Adderall) 20 MG tabletIndicatio ns:ADHD, impulsive type,Antisocial personality disorder (CMS/HCC) ([facility]) Take 1 tablet (20 mg) by mouth 2 times daily for 28 days. 56 tablet 08/04/20 25 025 Discontinued(R eorder (will not trigger notification to Pharmacy)) lisdexamfetamin e (Vyvanse) 50 MG capsuleIndicati ons:ADHD, impulsive type,Antisocial personality disorder (CMS/HCC) ([facility]) Take 1 capsule (50 mg) by mouth in the morning. 28 capsule 08/04/20 25 025 Discontinued(R eorder (will not trigger [...] 01/21/2023 Impulse control disorder 01/21/2023 Morbid obesity ([facility]/HCC) 01/21/2023 Abnormal prostate specific antigen (PSA) 023 Vitamin D deficiency 01/21/2023 BMI 35.0-35.9,adult 01/21/2023 Encounters Date Type Department Care Team Description 08/25/[address] [address] Roberta Wilde MD PT1 08/24/[address] [address] Roberta Wilde MD ADHD, impulsive type; Antisocial personality disorder (CMS/HCC) (HCC) 08/23/[address] [address] Roberta Wilde MD 08/15/[address] [address] Roberta Wilde MD Med Refill 08/04/[address] [address] Roberta Wilde MD 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); Mild intermittent asthma, unspecified whether complicated; ADHD, impulsive type; Antisocial personality disorder ([facility]); Paranoia ([facility]); Allergic rhinitis, unspecified seasonality, unspecified trigger; Chronic midline low back pain with bilateral sciatica; Alcohol use disorder, severe, in early remission ([facility]); Cigarette nicotine dependence without complication; Impulse control disorder; Drug-induced constipation; Erectile dysfunction, unspecified erectile dysfunction type; Abnormal prostate specific antigen (PSA) 07/31/[address] [address] Roberta Wilde MD Paranoia ([facility]/HCC) 07/17/[address] [address] Roberta Wilde MD Chronic midline low back pain with bilateral sciatica; Alcohol use disorder, severe, in early remission ([facility]/HCC) 06/26/[address] [address] Roberta Wilde MD Antisocial personality disorder ([facility]/HCC); ADHD, impulsive type 06/19/[address] [address] Roberta Wilde MD Chronic midline low back pain with bilateral sciatica; Alcohol use disorder, severe, in early remission (CMS/HCC) 06/19/[address] [address] Roberta Wilde MD Antisocial personality disorder ([facility]/HCC); Chronic midline low back pain with bilateral sciatica; Alcohol use disorder, severe, in early remission ([facility]/HCC) 06/07/2025 10:20 AM EDT Office Visit [facility] MEDICAL [address] [place] [address] Roberta Wilde MD Antisocial personality disorder ([facility]/HCC) (Primary Dx); Extreme poverty; Transportation insecurity; ADHD, impulsive type 06/05/[address] [address] Roberta Wilde MD Prior Auth Pres[facility] [address] [address] Roberta Wilde MD ADHD, impulsive type; Antisocial personality disorder ([facility]/HCC) 05/27/2025 Telephone [facility] MEDICAL [address] [place] [address] Robreta Wilde MD PT-1 05/25/[address] [address] Roberta Wilde MD Abnormal prostate specific antigen (PSA); Antisocial personality disorder (CMS/HCC); Paranoia ([facility]/HCC); Impulse control disorder from Last 3 Months Immunizations Immunization Administration [...] Father Kamron Maternal Grandmother Iva Mother Yazmin Sister Kimberly Social History Tobacco Use Types Packs/Day Years [...] 01/07/2025 11:08 AM EST Plan of Treatment Upcoming Encounters Date Type Department Care Team (Late st Contact Info) Description 09/27/2025 4:00 PM EST Telemedicine [facility] MEDICAL [address] [place] [address] Roberta Wilde MD [address] [place] [address] 10/13/2025 12:20 PM EST Office Visit [facility] MEDICAL [address] [place] [address] Roberta Wilde MD [address] [place] [address] Health Maintenance Due Date Last Done Comments [...] cancer screening LIPID PANEL, STANDARD Routine 09/28/2024 supervisor intermediates current use of antipsychotic medication Full PANORAMIC [...] Results * Referral to Physical Therapy (06/14/2025) Araceli Sorto MD OUTPATIENT REFERRAL ORDERABLES F inal Result * Cologuard?? colon cancer screening (11/22/2024 8:00 AM EST) Cologuard Result Negative Negative 11/30/19 1:19 PM EST [email or web address] (CLIA #:[id number]) Comment: NEGATIVE TEST RESULT. A negative Cologuard [...] (Beltran Joe al, N Engl J Med 2014;370(14):6724-5978) The normal value (reference range) for this assay is negative. COLOGUARD RE-SCREENING RECOMMENDATION: Periodic colorectal cancer screening is an important part of preventive healthcare for asymptomatic individuals at average risk for colorectal cancer. Following a negative Cologuard result, the [place] [employer] Society and U.S. Multi-Society Task Force screening guidelines recommend a Cologuard re-screening interval of 3 years. References: [place] [employer] Guideline for Colorectal Cancer Screening: https://www.cancer.org/cancer/lllgl-mrvlxs-jebmue/vpzbvnrpj-qkgcnqprg-kjixvwj/ac s-rec ommendations.html.; Brown DK, Liza BECKER, Marion MontesK, Colorectal Cancer Screening: Recommendations for Physicians and Patients from the U.S. Multi-Society Task Force on Colorectal Cancer Screening , Am J Gastroenterology 2017; 112:5473-4507. TEST DESCRIPTION: Composite algorithmic analysis of stool [...] (Beltran Joe al, N Engl J Med 2014;370(14):3749-2074.) Cologuard may produce a false negative or false positive result (no colorectal cancer or precancerous polyp present at colonoscopy follow up). A negative Cologuard test result does not guarantee the absence of CRC or advanced adenoma (pre-cancer). The current Cologuard screening interval is every 3 years. ([place] [employer] Society and U.S. Multi-Society Task Force). Cologuard performance data in a 10,000 patient pivotal study using colonoscopy as the reference method can be accessed at the following location: www.[employer]/results. Additional description of the Cologuard test process, warnings and precautions can be found at www.cologuard.com. Stool specimen (specimen) 11/22/2024 8:00 AM EST 11/24/2024 1:04 PM EST Roberta Wilde MD LAB MOLECULAR DIAGNOSTICS ORDE RABLES Final Result [email or web address] (CLIA #:[id number]) [place] [address], * Lipid Panel, Standard 92667 (09/28/2024) Blood Venous blood specimen / Unknown Roberta Wilde MD LAB BLOOD ORDERABLES Final Res ult [facility] [address] [place] [address], [place] [phone] from Last 3 Months or Most Recently Relevant to Health Maintenance Insurance [facility] [place] ST[place] Care Teams Adjunct History Instructor Relationship Specialty Start Date End Date Roberta Wilde MD [address] [facility] [place] [address] PCP - General Family Medicine 12/03/22
--- OUTSIDE RECORDS SUMMARY | 2025-08-25 16:24 | XMS_ITS | Encounter Summary ---
Author Organization [employer] Address [address] [place] [address] Care Team Providers Care Overhead Crane Operator Name Role Phone Roberta Wilde MD Primary Care Provider [phone] Reason for Visit * Reason Comments Med Refill Encounter Details Date Type Department Care Team (Late st Contact Info) Description 06/19/2024 Refill [place] [facility] MEDICAL [address] [place] [address] Roberta Wilde MD 70 [place] [address] Antisocial personality disorder (CMS/HCC); ADHD, impulsive type [...] Info) Description 09/27/2025 4:00 PM EST Telemedicine [facility] MEDICAL [address] [place] [address] Roberta Wilde MD 70 [place] [address] 10/13/2025 12:20 PM EST Office Visit [facility] MEDICAL 70 [place] [address] Roberta Wilde MD 70 [place] [address] documented as of this encounter Visit Diagnoses Diagnosis Antisocial personality disorder (CMS/HCC) (HCC) Antisocial personality disorder ADHD, impulsive type documented in this encounter Care Teams Overhead Crane Operator Relationship Specialty Start Date End Date Roberta Wilde MD 70 [place] [address] PCP - General Family Medicine 12/03/22 documented as of this encounter
--- OUTSIDE RECORDS SUMMARY | 2025-08-25 16:24 | XMS_ITS | Clinical Summary ---
Author Organization [facility] Address [address] [place] [address] Care Team Providers Care Certified Medical Asst Name Role Phone Moises Castellanos Primary Care Provider [phone] Medications propranoloL (INDERAL) 40 mg tablet Take [...] (1 - 1-dose 75+ series) 2048 [place] [address] Care Teams Certified Medical Asst Relationship Specialty Start Date End Date Moises Castellanos [address] [place] [address] PCP - General Internal Medicine 10/09/21
--- OUTSIDE RECORDS SUMMARY | 2025-08-25 16:24 | XMS_ITS | Encounter Summary ---
Author Organization [employer] Address [address] [place] [address] 7 [place] [address] Care Team Providers Care Whistle Punk Name Role Phone Roberta Wilde MD Primary Care Provider [phone] Reason for Visit * Reason Comments Care Management Encounter Details Date Type Department Care Team (Late st Contact Info) Description 09/13/2024 Telephone [place] [facility] MED[facility] [address] [place], [place] [id number] Jhonny, February Care Management Social History Tobacco [...] 09/27/2025 4:00 PM EST Telemedicine [facility] MEDICAL 70 [place] [address] Roberta Wilde MD 70 [place] [address] 10/13/2025 12:20 PM EST Office Visit [facility] MEDICAL 70 [place] [address] Roberta Wilde MD 70 [place] [address] documented as of this encounter Visit Diagnoses Not on filedocumented in this encounter Care Teams Whistle Punk Relationship Specialty Start Date End Date Roberta Wilde MD 70 [place] [address] PCP - General Family Medicine 12/03/22 documented as of this encounter
--- OUTSIDE RECORDS SUMMARY | 2025-08-25 16:24 | XMS_ITS | Encounter Summary ---
Author Organization [employer] Address [address] [place] [address] Care Team Providers Care Assistant County Engineer Name Role Phone Roberta Wilde MD Primary Care Provider [phone] Reason for Visit * Reason Onset Date Comments PT-1 08/24/2024 Encounter Details Date Type Department Care Team ([facility] st Contact Info) Description 08/24/[address] [facility] MEDICAL [address] [place], [place] [id number] Roberta Wilde MD 70 [place] [address] PT-1 Social History Tobacco Use Types Packs/Day [...] EDT Active PT-1 for this pt for [address] approved 08/17/24, exp 08/17/25. * Telephone Encounter - Marina Flores - 08/24/2024 10:44 AM EDT Pt-1 Request/Renewal: Letter from [facility] Name of Treating Provider/Treating Facility: [facility] Address of Treating Facility: [address] [place] [address] Number of Visits Requested: N/A Patient's Physical Address: [address] [place] [address] Date of Expiration: documented in this encounter Plan of Treatment Upcoming Encounters Date Type Department Care Team (Late st Contact Info) Description 09/27/2025 4:00 PM EST Telemedicine [facility] MEDICAL 70 [place] [address] Roberta Wilde MD 70 [place] 10/13/2025 12:20 PM EST Office Visit [facility] 70 [place] [address] Roberta Wilde MD 70 [place] [address] documented as of this encounter Visit Diagnoses Not on filedocumented in this encounter Care Teams Assistant County Engineer Relationship Specialty Start Date End Date Roberta Wilde MD 70 [place] [address] PCP - General Family Medicine 12/03/22 documented as of this encounter
--- OUTSIDE RECORDS SUMMARY | 2025-08-25 16:24 | XMS_ITS | Encounter Summary ---
Author Organization [employer] Address [address] [place] [address] Care Team Providers Care [employer]ayer [employer] Name Role Phone Roberta Wilde MD Primary Care Provider [phone] Encounter Details Date Type Department Care Team (Late st Contact Info) Description 09/09/2024 Orders Only [facility] [address] [place] [address] Roberta Wilde MD 70 [place] [address] Social History Tobacco Use Types Packs/Day Years [...] Info) Description 09/27/2025 4:00 PM EST Telemedicine [facility] MEDICAL 70 [place] [address] Roberta Wilde MD 70 [place] [address] 10/13/2025 12:20 PM EST Office Visit [facility] MEDICAL 70 [place] [address] Roberta Wilde MD 70 [place] [address] documented as of this encounter Procedures Procedure Name Priority Date/Time Associated Diagnosis Comments ECG 12-LEAD Routine 09/09/2024 2:22 PM EDT documented in this encounter Results * ECG 12 lead (09/09/2024 2:22 PM EDT) us Roberta Wilde MD ECG ORDERABLES Final Result documented in this encounter Visit Diagnoses Not on filedocumented in this encounter Care Teams [employer] Relationship Specialty Start Date End Date Roberta Wilde MD 70 [place] [address] PCP - General Family Medicine 12/03/22 documented as of this encounter
--- OUTSIDE RECORDS SUMMARY | 2025-08-25 16:24 | XMS_ITS | Encounter Summary ---
Author Organization [employer] Address [address] [place] [address] Care Team Providers Care Bicycle Inspector Name Role Phone Roberta Wilde MD Primary Care Provider [phone] Encounter Details Date Type Department Care Team (Late st Contact Info) Description 09/05/2024 Orders Only [facility] [address] [place] [address] Roberta Wilde MD 70 [place] [address] Social History Tobacco Use Types Packs/Day Years [...] 09/27/2025 4:00 PM EST Telemedicine [facility] MEDICAL 70 [place] [address] Roberta Wilde MD 70 [place] [address] 10/13/2025 12:20 PM EST Office Visit [facility] MEDICAL [address] [place] [address] Roberta Wilde MD 70 [place] [address] documented as of this encounter Procedures Procedure [...] on filedocumented in this encounter Care Teams Bicycle Inspector Relationship Specialty Start Date End Date Roberta Wilde MD 70 [place] [address] PCP - General Family Medicine 12/03/22 documented as of this encounter
--- OUTSIDE RECORDS SUMMARY | 2025-08-25 16:24 | XMS_ITS | Encounter Summary ---
Author Organization [employer] Address 75 [facility] 7t [place] [address] Care Team Providers Care Die Fitter Name Role Phone Roberta Wilde MD Primary Care Provider [phone] Encounter Details Date Type Department Care Team (Late st Contact Info) Description 10/10/2024 Orders Only [facility] MEDICAL 70 [place] [address] Roberta Wilde MD 70 [place] [address] Antisocial personality disorder (CMS/HCC); Abnormal prostate specific [...] Info) Description 09/27/2025 4:00 PM EST Telemedicine [facility] MEDICAL 70 [place] [address] Roberta Wilde MD 70 [place] [address] 10/13/2025 12:20 PM EST Office Visit [facility] 70 [place] [address] Roberta Wilde MD 70 [place] [address] documented as of this encounter Visit Diagnoses Diagnosis Antisocial personality disorder (CMS/HCC) (HCC) Antisocial personality disorder Abnormal prostate specific antigen (PSA) Impulse control disorder Impulse control disorder, unspecified Chronic midline low back pain with bilateral sciatica Alcohol use disorder, severe, in early remission (CMS/HCC) (HCC) Allergic rhinitis, unspecified seasonality, unspecified trigger documented in this encounter Care Teams Die Fitter Relationship Specialty Start Date End Date Roberta Wilde MD 70 [place] [address] PCP - General Family Medicine 12/03/22 documented as of this encounter
--- OUTSIDE RECORDS SUMMARY | 2025-08-25 16:25 | XMS_ITS | Encounter Summary ---
Author Organization [employer] Address [address] [place] [address] 7 [place] [address] Care Team Providers Care Dental Insurance Coordinator Name Role Phone Roberta Wilde MD Primary Care Provider [phone] Reason for Visit * Reason Onset Date Comments Labs Only 12/23/2024 Encounter Details Date Type Department Care Team (Late st Contact Info) Description 12/23/2024 Telephone [place] [facility] MEDICAL 70 [place] [address] Roberta Wilde MD [address] [place] [address] Labs Only Social History Tobacco Use Types [...] Info) Description 09/27/2025 4:00 PM EST Telemedicine [facility] MEDICAL 70 [facility] [place] [address] Roberta Wilde MD 70 [place] [address] 10/13/2025 12:20 PM EST Office Visit [facility] 70 [place] [address] Roberta Wilde MD 70 [place] [address] documented as of this encounter Visit Diagnoses Not on filedocumented in this encounter Care Teams Dental Insurance Coordinator Relationship Specialty Start Date End Date Roberta Wilde MD 70 [place] [address] PCP - General Family Medicine 12/03/22 documented as of this encounter
--- OUTSIDE RECORDS SUMMARY | 2025-08-25 16:25 | XMS_ITS | Encounter Summary ---
Author Organization [employer] Address 75 [facility] 7 [place] [address] Care Team Providers Care Ear Nose Throat Surgeon Name Role Phone Roberta Wilde MD Primary Care Provider [phone] Encounter Details Date Type Department Care Team (Late st Contact Info) Description 12/26/2024 Orders Only [facility] [address] [place] [address] Roberta Wilde MD 70 [place] [address] Social History Tobacco Use Types Packs/Day Years [...] Info) Description 09/27/2025 4:00 PM EST Telemedicine [facility] 70 [place] [address] Roebrta Wilde MD 70 [place] [address] 10/13/2025 12:20 PM EST Office Visit [facility] 70 [place] [address] Roberta Wilde MD 70 [place] [address] documented as of this encounter Procedures Procedure Name Priority Date/Time Associated Diagnosis Comments COMPREHENSIVE METABOLIC PANEL Routine 12/23/2024 8:53 AM EST documented in this encounter Results * Comprehensive Metabolic Panel (12/23/2024 8:53 AM EST) Blood Venous blood specimen / Unknown Roberta Wilde MD LAB BLOOD ORDERABLES Final Res ult documented in this encounter Visit Diagnoses Not on filedocumented in this encounter Care Teams Ear Nose Throat Surgeon Relationship Specialty Start Date End Date Roberta Wilde MD [address] [place] [address] PCP - General Family Medicine 12/03/22 documented as of this encounter
--- OUTSIDE RECORDS SUMMARY | 2025-08-25 16:25 | XMS_ITS | Encounter Summary ---
Author Organization [employer] Address [address] [place] [address] [place] [address] Care Team Providers Care Tuna Purse Seiner Name Role Phone Roberta Wilde MD Primary Care Provider Reason for Visit * Reason Onset Date Comments Med Refill 01/02/2025 Encounter Details Date Type Department Care Team (Late st Contact Info) Description 01/02/2025 Refill [facility] MEDICAL [address] [place] [address] Roberta Wilde MD 70 [place] [address] Antisocial personality disorder (CMS/HCC); ADHD, impulsive type [...] Info) Description 09/27/2025 4:00 PM EST Telemedicine [facility] MEDICAL 70 [place] [address] Robetra Wilde MD 70 [place] [address] 10/13/2025 12:20 PM EST Office Visit [facility] MEDICAL 70 [place] [address] Roberta Wilde MD 70 [place] [address] documented as of this encounter Visit Diagnoses Diagnosis Antisocial personality disorder (CMS/HCC) (HCC) Antisocial personality disorder ADHD, impulsive type documented in this encounter Care Teams Tuna Purse Seiner Relationship Specialty Start Date End Date Roberta Wilde MD 70 [place] [address] PCP - General Family Medicine 12/03/22 documented as of this encounter
--- OUTSIDE RECORDS SUMMARY | 2025-08-25 16:25 | XMS_ITS | Encounter Summary ---
Author Organization [employer] Address [address] [place] [address] [place] [address] Care Team Providers Care Coating Machine Feeder Name Role Phone Roberta Wilde MD Primary Care Provider [phone] Reason for Visit * Reason Onset Date Comments Med Refill 07/24/2023 Encounter Details Date Type Department Care Team (Late st Contact Info) Description 07/24/2023 Refill [facility] MEDICAL 73 [place] [address] Roberta Wilde MD 70 [place] [address] Chronic midline low back pain with bilateral [...] Info) Description 09/27/2025 4:00 PM EST Telemedicine [facility] MEDICAL [address] [place] [address] Roberta Wilde MD 70 [place] [address] 10/13/2025 12:20 PM EST Office Visit [facility] [address] [facility] [place] [address] Roberta Wilde MD 70 [place] [address] documented as of this encounter Visit Diagnoses Diagnosis Chronic midline low back pain with bilateral sciatica Vitamin D deficiency ADHD, impulsive type Antisocial personality disorder (CMS/HCC) (HCC) Antisocial personality disorder documented in this encounter Care Teams Coating Machine Feeder Relationship Specialty Start Date End Date Roberta Wilde MD 70 [place] [address] PCP - General Family Medicine 12/03/22 documented as of this encounter
== END 2025-08-25 14:37 | disposition home or self-care (01) ==
LOC: HO.HCC 13:56
PROVIDERS: PCP Family Medicine; Visit Provider Internal Medicine
DX: F11.20 Opioid dependence, uncomplicated (principal)
CPT/HCPCS: 99213

== ENCOUNTER → 2025-08-25 13:55 | Outpatient (BNVA) | payer MEDICAID, SELFPAY | PROVIDERS: PCP Family Medicine; Visit Provider Internal Medicine | DX: F11.20 Opioid dependence, uncomplicated (principal) | CPT/HCPCS: 99212 ==

== ENCOUNTER 2025-08-27 16:38 | Emergency (ER) | payer MEDICAID, SELFPAY ==
[2025-08-27 16:51] VITALS: BP 153/72; PULSE 80; RESP 16; TEMP 36; O2SAT 98; BMI 36.3
--- NOTE | 2025-08-27 16:52 | ED_ITS ---
HPI - General Adult General Chief complaint: Extremity Injury, Upper Stated complaint: sharpening knife, injury lt finger Time Seen by Provider: 08/27/25 19:57 Source: patient Mode of arrival: ambulatory Limitations: no limitations History of Present Illness ED Provider: Dr. Patel HPI narrative: 50-year-old male presented hospital today for evaluation of laceration of the left thumb. Patient states he was sharpening his knife when he sustained an injury does left thumb. Related Data Home Medications ?Medication ?Instructions ?Recorded ?Confirmed albuterol sulfate 90 mcg/actuation 1 inh inhalation QI D 04/17/25 05/10/25 aerosol inhaler aripiprazole 10 mg tablet 10 mg PO DAILY 04/17/2501/03 buspirone 30 mg tablet 30 mg PO BID 04/17/25 cetirizine 10 mg capsule (Zyrtec) 10 mg PO DAILY PRN 0 04/17/25 05/10/25 dextroamphetamine-amphetamine 10 10 mg PO DAILY 05/10/25 mg tablet (Adderall) fluticasone furoate 50 inhalation 04/17/25 05/10/25 mcg/actuation blister powder for inhalation gabapentin 600 mg tablet 600 mg PO DAILY 04/17/2501/03 lidocaine 5 % topical patch 1 patch topical DAILY 08/0305/10/25 (Lidoderm) sennosides 8.6 mg tablet (Natural 8.6 mg PO DAILY 08/0305/10/25 Senna Laxative) sertraline 100 mg tablet 100 mg PO DAILY 04/17/2501/03 tizanidine 4 mg capsule (Zanaflex) 4 mg PO BEDTIME PRN 04/17/25 05/10/25 Previous Rx's ?Medication ?Instructions ?Recorded ibuprofen 600 mg tablet 600 mg PO Q6H PRN pain #20 t abs 10/14/24 polyethylene glycol 3350 17 17 g PO DAILY PRN constipa tion 11/23/24 gram/dose oral powder #238 grams buprenorphine 8 mg-naloxone 2 mg 1 film sublingual TID 7 days #21 ea 08/18/25 sublingual film (Suboxone) buprenorphine 8 mg-naloxone 2 mg 1 film sublingual TID 30 days #90 08/25/25 sublingual film (Suboxone) ea Allergies Allergy/AdvReac Type Severity Reaction Status Date / Time codeine (CODEINE) Allergy Unknown CONSTIPATIO Verified 08/27/25 16:52 N diazepam (From Valium) AdvReac Hypertensio Verified 08/27/25 16:52 n Review of Systems Review of Systems: Pertinent review of systems as mentioned in HPI. All other system otherwise negative. [facility] Past Medical History [facility] Narrative: Medical history as mentioned in HPI Medical History Substance abuse HTN (hypertension) Alcoholism Social History Social History Alcohol intake: current Patient Tobacco Use Status: Current someday Tobacco user Substance Use Type: Crack/Cocaine Advance Directives: No Advance Directives Information Provided: No Physical Exam ED Exam Exam: General: Pleasant, no distress, interacting appropriately Head: Normacephalic, atraumatic Extremities: Laceration over left thumb, tendon appears to be intact. We will to flex and extend them without any issues. CMS of left upper extremity intact. Neurological: Awake and alert, no facial droop noted Skin: Warm and dry Psychiatric: Appropriate mood and thoughts Vital Signs: Vital Signs - 24 hr 08/27/25 16:51 08/27/25 17:04 08/27/25 19:38 Temperature 96.8 F 97.7 F 98.1 F Pulse Rate 80 86 81 Respiratory Rate 16 20 18 Blood Pressure 153/72 H 129/75 119/76 Pulse Oximetry 98 98 100 Oxygen Delivery Method Room Air Room Air Room Air BMI result Body Mass Index 36.3 Course Course Course Narrative: This is a rapid medical exam performed by Kuldip Ybarra NP: Additional HPI, ROS, PE not included below will be deferred to primary provider. Patient is a 50y/o right hand dominant male presenting with laceration to left thumb. Cut accidentally while sharpening a knife. Unknown last Tdap. 2cm lac to left thumb over IP joint. Plan: tdap, sutures Medications Administered Discontinued Medications Generic Name Dose Route Start Last Admin Trade Name Freq PRN Reason Stop Dose Admin Diphtheria/Tetanus/Acell Pertussis 0.5 ml 08/27/25 16:56 08/27/25 19:17 Diphth,Pertus(Acell),Tet Adult 0.5 Ml Syringe IM 08/27/25 16:57 0.5 ml .ONCE ONE Administration Procedures Laceration Laceration 1: Site: hand Side (If applicable): left Size (cm): 2 Description: linear Depth: simple, single layer Size (cm): other (Dermabond use to approximate wound) Medical Decision Making Medical Decision Making MDM Narrative: 50-year-old male presented hospital today for a laceration of the left thumb. Patient's wound appears to be well approximated. We will plan to use Dermabond to help close the wound better. We will plan to place the patient on a finger splint to allow the Dermabond to hold the wound and place. Appears to be a clean laceration. No concern of tendon injury. Appears to be deep to the dermis. Patient stated that he is extremely anxious about stitches. This wound was irrigated. Dermabond was applied. Patient tolerated procedure well. We will plan to discharge patient. Differential Diagnosis Differential Diagnoses: The differential diagnosis associated with the presentation includes Tendon laceration, laceration of the thumb, fracture Discharge Plan Discharge Clinical Impression: Laceration of thumb Qualifiers: Encounter type: initial encounter Damage to nail status: without damage Foreign body presence: without foreign body Laterality: left Qualified Code(s): S61.012A - Laceration without foreign body of left thumb without damage to nail, initial encounter Patient Disposition: Home, Self-Care Instructions: Laceration (ED) Additional Instructions: Allow 10 days for healing of the wound. Keep it dry and clean. Prescriptions: No Action ibuprofen 600 mg tablet 600 mg PO Q6H PRN (Reason: pain) Qty: 20 0RF gabapentin 600 mg tablet 600 mg PO DAILY aripiprazole 10 mg tablet 10 mg PO DAILY buspirone 30 mg tablet 30 mg PO BID fluticasone furoate 50 mcg/actuation blister with device inhalation albuterol sulfate 90 mcg/actuation HFA aerosol inhaler 1 inh inhalation QID Zyrtec 10 mg capsule 10 mg PO DAILY PRN sennosides [Natural Senna Laxative] 8.6 mg tablet 8.6 mg PO DAILY tizanidine [Zanaflex] 4 mg capsule 4 mg PO BEDTIME PRN lidocaine [Lidoderm] 5 % adhesive patch,medicated 1 patch topical DAILY Rx Instructions: leave on most painful area for up to 12 hrs dextroamphetamine-amphetamine [Adderall] 10 mg tablet 10 mg PO DAILY sertraline 100 mg tablet 100 mg PO DAILY buprenorphine-naloxone [Suboxone] 8-2 mg film 1 film sublingual TID 7 Days Qty: 21 0RF buprenorphine-naloxone [Suboxone] 8-2 mg film 1 film sublingual TID 30 Days Qty: 90 0RF polyethylene glycol 3350 17 gram/dose powder 17 g PO DAILY PRN (Reason: constipation) Qty: 238 0RF Print Language: Chilean
[2025-08-27 17:04] VITALS: BP 129/75; PULSE 86; RESP 20; TEMP 36.5; O2SAT 98
--- OUTSIDE RECORDS SUMMARY | 2025-08-27 19:11 | XMS_ITS | Encounter Summary ---
Author Organization [employer] Address 75 [facility] 7 [place] [address] Care Team Providers Care Applications Intern Name Role Phone Roberta Wilde MD Primary Care Provider [phone] Encounter Details Date Type Department Care Team (Late st Contact Info) Description 10/14/2024 Orders Only [facility] [address] [place] [address] Roberta Wilde MD 70 [place] [address] Social History Tobacco Use Types Packs/Day Years [...] 4:00 PM EST Telemedicine [facility] MEDICAL 70 [place] [address] Roberta Wilde MD 70 [place] [address] 10/13/2025 12:20 PM EST Office Visit [facility] 70 [place] [address] Roberta Wilde MD 70 [place] [address] documented as of this encounter Procedures Procedure [...] on filedocumented in this encounter Care Teams Applications Intern Relationship Specialty Start Date End Date Roberta Wilde MD 70 [place] [address] PCP - General Family Medicine 12/03/22 documented as of this encounter
--- OUTSIDE RECORDS SUMMARY | 2025-08-27 19:11 | XMS_ITS | Encounter Summary ---
Author Organization [employer] Address [address] [place] [address] 7 [place] [address] Care Team Providers Care Solar Sales Advisor Name Role Phone Roberta Wilde MD Primary Care Provider Reason for Visit * Reason Comments Med Refill Encounter Details Date Type Department Care Team (Late st Contact Info) Description 09/28/2024 Refill [facility] MED[facility] 70 [place] [address] Roberta Wilde MD 70 [place] [address] Chronic midline low back pain with bilateral [...] Info) Description 09/27/2025 4:00 PM EST Telemedicine [facility] MEDICAL 70 [place] [address] Roberta Wilde MD 70 [place] [address] 10/13/2025 12:20 PM EST Office Visit [facility] MEDICAL 70 [place] [address] Roberta Wilde MD 70 [place] [address] documented as of this encounter Visit Diagnoses Diagnosis Chronic midline low back pain with bilateral sciatica Alcohol use disorder, severe, in early remission (CMS/HCC) (HCC) Antisocial personality disorder (CMS/HCC) (HCC) Antisocial personality disorder documented in this encounter Care Teams Solar Sales Advisor Relationship Specialty Start Date End Date Roberta Wilde MD 70 [place] [address] PCP - General Family Medicine 12/03/22 documented as of this encounter
--- OUTSIDE RECORDS SUMMARY | 2025-08-27 19:11 | XMS_ITS | Encounter Summary ---
Author Organization [employer] Address [address] [place] [address] Care Team Providers Care Diploma Dental Assistant Name Role Phone Roberta Wilde MD Primary Care Provider [phone] Reason for Visit * Reason Comments Med Refill Encounter Details Date Type Department Care Team (Late st Contact Info) Description 06/19/2024 Refill Ana [facility] MEDICAL [address] [place] [address] Roberta Wilde MD 70 [place] [address] Antisocial personality disorder (CMS/HCC); ADHD, impulsive type [...] Info) Description 09/27/2025 4:00 PM EST Telemedicine [facility] MEDICAL [address] [place] [address] Roberta Wilde MD 70 [place] [address] 10/13/2025 12:20 PM EST Office Visit [facility] MEDICAL [address] [facility] [place] [address] Roberta Wilde MD 70 [place] [address] documented as of this encounter Visit Diagnoses Diagnosis Antisocial personality disorder (CMS/HCC) (HCC) Antisocial personality disorder ADHD, impulsive type documented in this encounter Care Teams Diploma Dental Assistant Relationship Specialty Start Date End Date Roberta Wilde MD 70 [place] [address] PCP - General Family Medicine 12/03/22 documented as of this encounter
--- OUTSIDE RECORDS SUMMARY | 2025-08-27 19:11 | XMS_ITS | Encounter Summary ---
Author Organization [employer] Address [address] [place] [address] Care Team Providers Care Site Planner Name Role Phone Roberta Wilde MD Primary Care Provider [phone] Reason for Visit * Reason Comments Case Management Encounter Details Date Type Department Care Team ([facility] Contact Info) Description 10/07/2024 Telephone [facility] [address] [place] [address] Mariannefebruary Case Management Social History [...] Info) Description 09/27/2025 4:00 PM EST Telemedicine [facility] MEDICAL 70 [place] [address] Roberta Wilde MD 70 [place] [address] 10/13/2025 12:20 PM EST Office Visit [facility] MEDICAL 70 [place] [address] Roberta Wilde MD 70 [place] [address] documented as of this encounter Visit Diagnoses Not on filedocumented in this encounter Care Teams Site Planner Relationship Specialty Start Date End Date Roberta Wilde MD 70 [place] [address] PCP - General Family Medicine 12/03/22 documented as of this encounter
--- OUTSIDE RECORDS SUMMARY | 2025-08-27 19:11 | XMS_ITS | Encounter Summary ---
Author Organization [employer] Address [address] [place] [address] Care Team Providers Care Superintendent Building Name Role Phone Roberta Wilde MD Primary Care Provider [phone] Reason for Visit * Reason Onset Date Comments PT-1 08/24/2024 Encounter Details Date Type Department Care Team ([facility] st Contact Info) Description 08/24/[address] [facility] MEDICAL [address] [place], [place] [phone] Roberta Wilde MD 70 [place] [address] PT-1 Social History Tobacco Use Types Packs/Day [...] EDT Active PT-1 for this pt for [address] approved 08/17/24, exp 08/17/25. * Telephone Encounter - Marina Flores - 08/24/2024 10:44 AM EDT Pt-1 Request/Renewal: Letter from [facility] Name of Treating Provider/Treating Facility: [facility] Address of Treating Facility: [address] [place] [address] Number of Visits Requested: N/A Patient's Physical Address: [address] [place] [address] Date of Expiration: documented in this encounter Plan of Treatment Upcoming Encounters Date Type Department Care Team (Late st Contact Info) Description 09/27/2025 4:00 PM EST Telemedicine [facility] MEDICAL 70 [place] [address] Roberta Wilde MD [address] [place], [place] 10/13/2025 12:20 PM EST Office Visit [facility] 70 [place] [address] Roberta Wilde MD 70 [place] [address] documented as of this encounter Visit Diagnoses Not on filedocumented in this encounter Care Teams Superintendent Building Relationship Specialty Start Date End Date Roberta Wilde MD 70 [place] [address] PCP - General Family Medicine 12/03/22 documented as of this encounter
--- OUTSIDE RECORDS SUMMARY | 2025-08-27 19:11 | XMS_ITS | Clinical Summary ---
Author Organization [employer] Address 75 [facility] 7t [place] [address] Care Team Providers Care Plastic Molder Name Role Phone Roberta Wilde MD Primary Care Provider [phone] Allergies Active Allergy Reactions Criticality Noted Date [...] 50 MG capsuleIndicati ons:Antisocial personality disorder (CMS/HCC) ([facility]),ADHD, impulsive type TAKE 1 CAPSULE BY MOUTH EVERY MORNING 28 capsule 06/28/20 25 025 Discontinued(R eorder (will not trigger notification to Pharmacy)) gabapentin (Neurontin) 600 MG tabletIndicatio ns:Chronic midline low back pain with bilateral sciatica,Alcoho l use disorder, severe, in early remission (CMS/HCC) ([facility]) Take 1 tablet (600 mg) by mouth 3 times daily. 84 tablet 07/18/20 25 025 Discontinued(R eorder (will not trigger notification to Pharmacy)) ARIPiprazole (Abilify) 10 MG tabletIndicatio ns:Paranoia (CMS/HCC) ([facility]) TAKE 1 TABLET (10 MG) BY MOUTH ONCE PER DAY. 90 tablet 07/31/20 25 025 Discontinued(R eorder (will not trigger notification to Pharmacy)) amphetamine-dex troamphetamine (Adderall) 20 MG tabletIndicatio ns:ADHD, impulsive type,Antisocial personality disorder (CMS/HCC) ([facility]) Take 1 tablet (20 mg) by mouth 2 times daily for 28 days. 56 tablet 08/04/20 25 025 Discontinued(R eorder (will not trigger notification to Pharmacy)) lisdexamfetamin e (Vyvanse) 50 MG capsuleIndicati ons:ADHD, impulsive type,Antisocial personality disorder (CMS/HCC) ([facility]) Take 1 capsule (50 mg) by mouth [...] 01/21/2023 Impulse control disorder 01/21/2023 Morbid obesity ([facility]/HCC) 01/21/2023 Abnormal prostate specific antigen (PSA) 023 Vitamin D deficiency 01/21/2023 BMI 35.0-35.9,adult 01/21/2023 Encounters Date Type Department Care Team Description 08/25/[address] [address] Roberta Wilde MD PT1 08/24/[address] [address] Roberta Wilde MD ADHD, impulsive type; Antisocial personality disorder (CMS/HCC) (HCC) 08/23/[address] [address] Roberta Wilde MD 08/15/[address] [address] Roberta Wilde MD Med Refill 08/04/[address] [address] Roberta Wilde MD 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); Mild intermittent asthma, unspecified whether complicated; ADHD, impulsive type; Antisocial personality disorder ([facility]); Paranoia ([facility]); Allergic rhinitis, unspecified seasonality, unspecified trigger; Chronic midline low back pain with bilateral sciatica; Alcohol use disorder, severe, in early remission ([facility]); Cigarette nicotine dependence without complication; Impulse control disorder; Drug-induced constipation; Erectile dysfunction, unspecified erectile dysfunction type; Abnormal prostate specific antigen (PSA) 07/31/[address] [address] Roberta Wilde MD Paranoia ([facility]/HCC) 07/17/[address] [address] Roberta Wilde MD Chronic midline low back pain with bilateral sciatica; Alcohol use disorder, severe, in early remission ([facility]/HCC) 06/26/2025 Refill [facility] [address] [place] [address] Roberta Wilde MD Antisocial personality disorder ([facility]/HCC); ADHD, impulsive type 06/19/2025 Refill [facility] [address] [place] [address] Roberta Wilde MD Chronic midline low back pain with bilateral sciatica; Alcohol use disorder, severe, in early remission ([facility]/HCC) 06/19/2025 Refill [facility] [address] [place] [address] Roberta Wilde MD Antisocial personality disorder ([facility]/HCC); Chronic midline low back pain with bilateral sciatica; Alcohol use disorder, severe, in early remission ([facility]/HCC) 06/07/2025 10:20 AM EDT Office Visit [facility] MEDICAL 70 [place] [address] Roberta Wilde MD Antisocial personality disorder ([facility]) (Primary Dx); Extreme poverty; Transportation insecurity; ADHD, impulsive type 06/05/2025 Telephone [facility] [address] [place] [address] Roberta Wilde MD Prior Auth Prescription 06/05/[address] [address] Roberta Wilde MD ADHD, impulsive type; Antisocial personality disorder ([facility]/HCC) 05/27/2025 Telephone [facility] MEDICAL [address] [place] [address] Roberta Wilde MD PT-1 from Last 3 [...] Info) Description 09/27/2025 4:00 PM EST Telemedicine [facility] MEDICAL 70 [place] [address] Roberta Wilde MD [address] [place] [address] 10/13/2025 12:20 PM EST Office Visit [facility] MEDICAL [address] [place] [address] Roberta Wilde MD [address] [place] [address] Health Maintenance Due Date Last Done Comments [...] cancer screening LIPID PANEL, STANDARD Routine 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 A negative Cologuard [...] (Beltran Joe al, N Engl J Med 2014;370(14):8303-5796) The normal value (reference range) for this assay is negative. COLOGUARD RE-SCREENING RECOMMENDATION: Periodic colorectal cancer screening is an important part of preventive healthcare for asymptomatic individuals at average risk for colorectal cancer. Following a negative Cologuard result, the [place] [employer] Society and U.S. Multi-Society Task Force screening guidelines recommend a Cologuard re-screening interval of 3 years. References: [place] [employer] Guideline for Colorectal Cancer Screening: https://www.cancer.org/cancer/azbav-niibru-ykbqbw/xwfggzuea-tavupnesz-quwdehc/ac s-rec ommendations.html.; Brown STERLING, Liza BECKER, Marion MontesK, Colorectal Cancer Screening: Recommendations for Physicians and Patients from the U.S. Multi-Society Task Force on Colorectal Cancer Screening , Am J Gastroenterology 2017; 112:9786-5636. TEST DESCRIPTION: Composite algorithmic analysis of stool [...] Cameron et al, N Engl J Med 2014;370(14):7382-7360.) Cologuard may produce a false negative or false positive result (no colorectal cancer or precancerous polyp present at colonoscopy follow up). A negative Cologuard test result does not guarantee the absence of CRC or advanced adenoma (pre-cancer). The current Cologuard screening interval is every 3 years. ([employer] [employer] Society and U.S. Multi-Society Task Force). Cologuard performance data in a 10,000 patient pivotal study using colonoscopy as the reference method can be accessed at the following location: www.[employer]results. Additional description of the Cologuard test process, warnings and precautions can be found at www.cologuard.[employer] Stool specimen (specimen) 11/22/2024 8:00 AM EST 11/24/2024 1:04 PM EST Roberta Wilde MD LAB MOLECULAR DIAGNOSTICS ORDE RABLES Final Result [facility] (CLIA #:[id number]) [place] [address], [place] [phone] * Lipid Panel, Standard 46138 (09/28/2024) Blood Venous blood specimen / Unknown Roberta Wilde MD LAB BLOOD ORDERABLES Final Res ult Performing Organization Address [facility] Co de Phone Number [facility] [address] [place] [address], [place] [phone] from Last 3 Months or Most Recently Relevant to Health Maintenance Insurance [facility] STANDARD DENTAL-[facility] MEDICAID STAND ADULT [place] Care Teams Plastic Molder Relationship Specialty Start Date End Date Roberta Wilde MD [address] [place] [address] PCP - General Family Medicine 12/03/22
--- OUTSIDE RECORDS SUMMARY | 2025-08-27 19:11 | XMS_ITS | Encounter Summary ---
Author Organization [employer] Address 75 [facility] 7t [place] [address] Care Team Providers Care Last Model Maker Name Role Phone Roberta Wilde MD Primary Care Provider [phone] Encounter Details Date Type Department Care Team (Late st Contact Info) Description 10/10/2024 Orders Only [place] [facility] MEDICAL 70 [place] [address] Roberta Wilde MD [address] [place] [address] Antisocial personality disorder (CMS/HCC); Abnormal prostate specific [...] Info) Description 09/27/2025 4:00 PM EST Telemedicine [facility] MEDICAL 70 [place] [address] Roberta Wilde MD [address] [place] [address] 10/13/2025 12:20 PM EST Office Visit [facility] 70 [place] [address] Roberta Wilde MD [address] [place] [address] documented as of this encounter Visit Diagnoses Diagnosis Antisocial personality disorder (CMS/HCC) (HCC) Antisocial personality disorder Abnormal prostate specific antigen (PSA) Impulse control disorder Impulse control disorder, unspecified Chronic midline low back pain with bilateral sciatica Alcohol use disorder, severe, in early remission (CMS/HCC) (HCC) Allergic rhinitis, unspecified seasonality, unspecified trigger documented in this encounter Care Teams Last Model Maker Relationship Specialty Start Date End Date Roberta Wilde MD [address] [place] [address] PCP - General Family Medicine 12/03/22 documented as of this encounter
--- OUTSIDE RECORDS SUMMARY | 2025-08-27 19:11 | XMS_ITS | Clinical Summary ---
Author Organization [facility] Address [address] [place] [address] Care Team Providers Care Member Certification Manager Name Role Phone Moises Castellanos Primary Care Provider [phone] Medications propranoloL (INDERAL) 40 mg tablet Take [...] (1 - 1-dose 75+ series) 2048 Insurance [place] [address] Care Teams Member Certification Manager Relationship Specialty Start Date End Date Moises Castellanos [address] [place] [address] PCP - General Internal Medicine 10/09/21
--- OUTSIDE RECORDS SUMMARY | 2025-08-27 19:11 | XMS_ITS | Encounter Summary ---
Author Organization [employer] Address [address] [place] [address] Care Team Providers Care Assistant Signal Maintainer Name Role Phone Roberta Wilde MD Primary Care Provider [phone] Reason for Visit * Reason Onset Date Comments PT-1 08/17/2024 Encounter Details Date Type Department Care Team (Late st Contact Info) Description 08/17/2024 Telephone [facility] MEDICAL [address] [place], [place] [phone] Roberta Wilde MD 70 [place] [address] PT-1 Social History Tobacco Use Types Packs/Day [...] Candelario - 08/17/2024 4:36 PM EDT PT-1 [id number] authorized * Telephone Encounter - CORRINE Candelario - 08/17/2024 11:30 AM EDT PT-1 request is submitted- [facility] PT-1 Request Number [id number] is Pending * Telephone Encounter - [place] Sandra - 08/17/2024 10:51 AM EDT Pt-1 Request/Renewal: Letter From [facility] Name of Treating Provider/Treating Facility: [facility] Address of Treating Facility: [address] [place] [address] Number of Visits Requested: N/A Patient's Physical Address: [facility] [address] Letter has 5 [place] [address] Date of Expiration: 09/11/2024 documented in this encounter Plan of Treatment Upcoming Encounters Date Type Department Care Team (Late st Contact Info) Description 09/27/2025 4:00 PM EST Telemedicine [facility] MEDICAL 70 [place] [address] Roberta Wilde MD [address] [place], [place] 10/13/2025 12:20 PM EST Office Visit [facility] 70 [place] [address] Roberta Wilde MD 70 [place] [address] documented as of this encounter Visit Diagnoses Not on filedocumented in this encounter Care Teams Assistant Signal Maintainer Relationship Specialty Start Date End Date Roberta Wilde MD 70 [place] [address] PCP - General Family Medicine 12/03/22 documented as of this encounter
--- OUTSIDE RECORDS SUMMARY | 2025-08-27 19:12 | XMS_ITS | Encounter Summary ---
Author Organization [employer] Address [address] [place] [address] Care Team Providers Care Rn Residential Name Role Phone Roberta Wilde MD Primary Care Provider Reason for Visit * Reason Onset Date Comments Med Refill 07/30/2023 Encounter Details Date Type Department Care Team (Late st Contact Info) Description 07/30/2023 Refill [facility] MEDICAL [address] [place] [address] Keri Davis FNP 70 [place] [address] ADHD, impulsive type Social History Tobacco Use [...] Info) Description 09/27/2025 4:00 PM EST Telemedicine [facility] MEDICAL 70 [place] [address] Roberta Wilde MD 70 [place] [address] 10/13/2025 12:20 PM EST Office Visit [facility] MEDICAL 70 [place] [address] Roberta Wilde MD 70 [place] [address] documented as of this encounter Visit Diagnoses Diagnosis ADHD, impulsive type documented in this encounter Care Teams Rn Residential Relationship Specialty Start Date End Date Roberta Wilde MD 70 [place] [address] PCP - General Family Medicine 12/03/22 documented as of this encounter
--- OUTSIDE RECORDS SUMMARY | 2025-08-27 19:12 | XMS_ITS | Encounter Summary ---
Author Organization [employer] Address [address] [place] [address] 7 [place] [address] Care Team Providers Care Manager Pharmacy Name Role Phone Roberta Wilde MD Primary Care Provider [phone] Reason for Visit * Reason Comments Care Management Encounter Details Date Type Department Care Team (Late st Contact Info) Description 09/13/2024 Telephone [place] [facility] MEDICAL [address] [place], [place] [phone] Jhonny, February Care Management Social History Tobacco [...] Info) Description 09/27/2025 4:00 PM EST Telemedicine [facility] MEDICAL 70 [place] [address] Roberta Wilde MD 70 [place] [address] 10/13/2025 12:20 PM EST Office Visit [facility] MEDICAL [address] [place] [address] Roberta Wilde MD 70 [place] [address] documented as of this encounter Visit Diagnoses Not on filedocumented in this encounter Care Teams Manager Pharmacy Relationship Specialty Start Date End Date Roberta Wilde MD 70 [place] [address] PCP - General Family Medicine 12/03/22 documented as of this encounter
--- OUTSIDE RECORDS SUMMARY | 2025-08-27 19:12 | XMS_ITS | Encounter Summary ---
Author Organization [employer] Address [address] [place] [address] Care Team Providers Care Wheel Truer Name Role Phone Roberta Wilde MD Primary Care Provider [phone] Encounter Details Date Type Department Care Team (Late st Contact Info) Description 09/05/2024 Orders Only [facility] [address] [place] [address] Roberta Wilde MD 70 [place] [address] Social History Tobacco Use Types Packs/Day Years [...] Info) Description 09/27/2025 4:00 PM EST Telemedicine [facility] MEDICAL 70 [place] [address] Roberta Wilde MD 70 [place] [address] 10/13/2025 12:20 PM EST Office Visit [facility] MEDICAL [address] [place] [address] Roberta Wilde MD [address] [place] [address] documented as of this encounter Procedures Procedure [...] on filedocumented in this encounter Care Teams Wheel Truer Relationship Specialty Start Date End Date Roberta Wilde MD 70 [place] [address] PCP - General Family Medicine 12/03/22 documented as of this encounter
--- OUTSIDE RECORDS SUMMARY | 2025-08-27 19:12 | XMS_ITS | Encounter Summary ---
Author Organization [employer] Address [address] [place] [address] Care Team Providers Care Metal Trim Erector Name Role Phone Roberta Wilde MD Primary Care Provider [phone] Encounter Details Date Type Department Care Team (Late st Contact Info) Description 09/09/2024 Orders Only [facility] [address] [place] [address] Roberta Wilde MD 70 [place] [address] Social History Tobacco Use Types Packs/Day Years [...] 09/27/2025 4:00 PM EST Telemedicine [facility] MEDICAL 70 [place] [address] Roberta Wilde MD 70 [place] [address] 10/13/2025 12:20 PM EST Office Visit [facility] MEDICAL 70 [place] [address] Roberta Wilde MD 70 [place] [address] documented as of this encounter Procedures Procedure Name Priority Date/Time Associated Diagnosis Comments ECG 12-LEAD Routine 09/09/2024 2:22 PM EDT documented in this encounter Results * ECG 12 lead (09/09/2024 2:22 PM EDT) us Roberta Wilde MD ECG ORDERABLES Final Result documented in this encounter Visit Diagnoses Not on filedocumented in this encounter Care Teams Metal Trim Erector Relationship Specialty Start Date End Date Roberta Wilde MD 70 [place] [address] PCP - General Family Medicine 12/03/22 documented as of this encounter
--- OUTSIDE RECORDS SUMMARY | 2025-08-27 19:12 | XMS_ITS | Encounter Summary ---
Author Organization [employer] Address [address] [place] [address] 7 [place] [address] Care Team Providers Care Child Day Care Center Worker Name Role Phone Roberta Wilde MD Primary Care Provider [phone] Reason for Visit * Reason Onset Date Comments Med Refill 01/15/2025 Encounter Details Date Type Department Care Team (Late st Contact Info) Description 01/15/2025 Refill [place] [facility] MEDICAL [address] [place] [address] Araceli Sorto MD [address] [place] [address] Vitamin D deficiency Social History Tobacco Use [...] Info) Description 09/27/2025 4:00 PM EST Telemedicine [facility] MEDICAL 70 [place] [address] Roberta Wilde MD 70 [place] [address] 10/13/2025 12:20 PM EST Office Visit [facility] MEDICAL 70 [place] [address] Roberta Wilde MD 70 [place] [address] documented as of this encounter Visit Diagnoses Diagnosis Vitamin D deficiency documented in this encounter Care Teams Child Day Care Center Worker Relationship Specialty Start Date End Date Roberta Wilde MD 70 [place] [address] PCP - General Family Medicine 12/03/22 documented as of this encounter
--- OUTSIDE RECORDS SUMMARY | 2025-08-27 19:12 | XMS_ITS | Encounter Summary ---
Author Organization [employer] Address 75 [facility] 7t [place] [address] Care Team Providers Care Digital Commentator Name Role Phone Roberta Wilde MD Primary Care Provider [phone] Encounter Details Date Type Department Care Team (Late st Contact Info) Description 08/23/2025 Telephone [place] [facility] MEDICAL 70 [place] [address] Roberta Wilde MD 70 [place] [address] Social History Tobacco Use Types Packs/Day Years [...] Facility: [facility] Address of Treating Facility: [address] [place] [address] Patient's Physical Address: [address] [place] [address] (This is on the request form) Date of Expiration: 09/16/2025 [facility] Number: [id number] Does the patient need door to door [...] Description 09/27/2025 4:00 PM EST Telemedicine [place] [facility] MEDICAL [address] [place], [place] [phone] Roberta Wilde MD [address] [place], [place] 10/13/2025 12:20 PM EST Office Visit [place] [facility] MED[facility] [address] [place] [address] Roberta Wilde MD [address] [place] [address] documented as of this encounter Visit Diagnoses Not on filedocumented in this encounter Care Teams Digital Commentator Relationship Specialty Start Date End Date Roberta Wilde MD [address] [place] [address] PCP - General Family Medicine 12/03/22 documented as of this encounter
--- OUTSIDE RECORDS SUMMARY | 2025-08-27 19:12 | XMS_ITS | Encounter Summary ---
Author Organization [employer] Address 75 [facility] 7 [place] [address] Care Team Providers Care Business Project Analyst Name Role Phone Roberta Wilde MD Primary Care Provider [phone] Reason for Visit * Reason Onset Date Comments Med Refill 08/24/2025 Encounter Details Date Type Department Care Team (Late st Contact Info) Description 08/24/2025 Refill [facility] MEDICAL [address] [place] [address] Roberta Wilde MD 70 [place] [address] ADHD, impulsive type; Antisocial personality disorder (CMS/HCC) [...] and has enough until Thursday (08/28/25). Pharmacy: [id number] - [place] - [address] [place] [address] [[id number]] JORGE: 06/07/25 NOV: 09/27/25 video and 10/13/25 in person documented in this encounter Plan of Treatment Upcoming Encounters Date Type Department Care Team (Late st Contact Info) Description 09/27/2025 4:[address] [facility] MEDICAL 70 [facility] [place] [address] Roberta Wilde MD 70 [place] [address] 10/13/2025 12:20 PM EST Office Visit [facility] MEDICAL 70 [place] [address] Roberta Wilde MD 70 [place] [address] documented as of this encounter Visit Diagnoses Diagnosis ADHD, impulsive type Antisocial personality disorder (CMS/HCC) (HCC) Antisocial personality disorder documented in this encounter Care Teams Business Project Analyst Relationship Specialty Start Date End Date Roberta Wilde MD [address] [place] [id number] PCP - General Family Medicine 12/03/22 documented as of this encounter
--- OUTSIDE RECORDS SUMMARY | 2025-08-27 19:12 | XMS_ITS | Encounter Summary ---
Author Organization [employer] Address 75 [facility] 7 [place] [address] Care Team Providers Care Senior Java Ui Developer Name Role Phone Roberta Wilde MD Primary Care Provider Reason for Visit * Reason Onset Date Comments PT1 08/25/2025 Encounter Details Date Type Department Care Team (Late st Contact Info) Description 08/25/2025 Telephone [facility] MEDICAL [address] [place] [address] Roberta Wilde MD 70 [place] [address] PT1 Social History Tobacco Use Types Packs/Day [...] Pt-1 Renewal: Name of Treating Provider/Treating Facility: [facility] Address of Treating Facility: [address] [place] [id number] Number of Visits Requested: 4 times a month Patient's Physical Address: [address] [place] [address] Date of Upcoming Appt: 09/01 Pt-1 Renewal: Name of Treating Provider/Treating Facility: [facility] Address of Treating Facility: [address] [place] [address] Number of Visits Requested: 10 Patient's Physical Address: [address] [place] [address] Date of Upcoming Appt:10/13 Pt-1 Renewal: Name of Treating Provider/Treating Facility: [facility] Address of Treating Facility: [address] [place] [address] Number of Visits Requested: 2 TIMES A MONTH Patient's Physical Address: Date of Upcoming Appt: TBD documented in this encounter Plan of Treatment Upcoming Encounters Date Type Department Care Team (Late st Contact Info) Description 09/27/2025 4:00 PM EST Telemedicine [facility] MEDICAL 70 [place] [address] Roberta Wilde MD 70 [place] [address] 10/13/2025 12:20 PM EST Office Visit [facility] MEDICAL 70 [facility] [place] [address] Roberta Wlide MD [address] [place] [address] documented as of this encounter Visit Diagnoses Not on filedocumented in this encounter Care Teams Senior Java Ui Developer Relationship Specialty Start Date End Date Roberta Wilde MD 70 [place] [address] PCP - General Family Medicine 12/03/22 documented as of this encounter
--- OUTSIDE RECORDS SUMMARY | 2025-08-27 19:12 | XMS_ITS | Encounter Summary ---
Author Organization [employer] Address 75 [facility] 7 [place] [address] Care Team Providers Care Civil Defense Director Name Role Phone Roberta Wilde MD Primary Care Provider [phone] Encounter Details Date Type Department Care Team (Late st Contact Info) Description 09/20/2024 Orders Only [facility] [address] [place] [address] Roberta Wilde MD 70 [place] [address] Social History Tobacco Use Types Packs/Day Years [...] Info) Description 09/27/2025 4:00 PM EST Telemedicine [facility] MEDICAL 70 [place] [address] Roberta Wilde MD [address] [place] [address] 10/13/2025 12:20 PM EST Office Visit [facility] 70 [place] [address] Roberta Wilde MD 70 [place] [address] documented as of this encounter Procedures Procedure Name Priority Date/Time Associated Diagnosis Comments ECG 12-LEAD Routine 09/18/2024 8:54 AM EST documented in this encounter Results * ECG 12 lead (09/18/2024 8:54 AM EST) Roberta Wilde MD ECG ORDERABLES Final Result documented in this encounter Visit Diagnoses Not on filedocumented in this encounter Care Teams Civil Defense Director Relationship Specialty Start Date End Date Roberta Wilde MD [address] [place] [address] PCP - General Family Medicine 12/03/22 documented as of this encounter
--- OUTSIDE RECORDS SUMMARY | 2025-08-27 19:13 | XMS_ITS | Encounter Summary ---
Author Organization [employer] Address 75 [facility] 7 [place] [address] Care Team Providers Care Online Advertising Manager Name Role Phone Roberta Wilde MD Primary Care Provider [phone] Encounter Details Date Type Department Care Team (Late st Contact Info) Description 12/26/2024 Orders Only [facility] [address] [place] [address] Roberta Wilde MD 70 [place] [address] Social History Tobacco Use Types Packs/Day Years [...] Info) Description 09/27/2025 4:00 PM EST Telemedicine [facility] 70 [place] [address] Roberta Wilde MD 70 [place] [address] 10/13/2025 12:20 PM EST Office Visit [facility] 70 [place] [address] Roberta Wilde MD 70 [place] [address] documented as of this encounter Procedures Procedure Name Priority Date/Time Associated Diagnosis Comments COMPREHENSIVE METABOLIC PANEL Routine 12/23/2024 8:53 AM EST documented in this encounter Results * Comprehensive Metabolic Panel (12/23/2024 8:53 AM EST) Blood Venous blood specimen / Unknown Roberta Wilde MD LAB BLOOD ORDERABLES Final Res ult documented in this encounter Visit Diagnoses Not on filedocumented in this encounter Care Teams Online Advertising Manager Relationship Specialty Start Date End Date Roberta Wilde MD [address] [place] [address] PCP - General Family Medicine 12/03/22 documented as of this encounter
--- OUTSIDE RECORDS SUMMARY | 2025-08-27 19:13 | XMS_ITS | Encounter Summary ---
Author Organization [employer] Address [address] [place] [address] 7 [place] [address] Care Team Providers Care Other Sports Official Name Role Phone Roberta Wilde MD Primary Care Provider [phone] Reason for Visit * Reason Onset Date Comments Labs Only 12/23/2024 Encounter Details Date Type Department Care Team (Late st Contact Info) Description 12/23/2024 Telephone [facility] MEDICAL [address] [place] [address] Roberta Wilde MD [address] [place] [address] Labs Only Social History Tobacco Use Types [...] EST Telemedicine [facility] MEDICAL 70 [facility] [place] [address] Roberta Wilde MD 70 [place] [address] 10/13/2025 12:20 PM EST Office Visit [facility] 70 [place] [address] Roberta Wilde MD [address] [place] [address] documented as of this encounter Visit Diagnoses Not on filedocumented in this encounter Care Teams Other Sports Official Relationship Specialty Start Date End Date Roberta Wilde MD 70 [place] [address] PCP - General Family Medicine 12/03/22 documented as of this encounter
--- OUTSIDE RECORDS SUMMARY | 2025-08-27 19:13 | XMS_ITS | Encounter Summary ---
Author Organization [employer] Address [address] [place] [address] [place] [address] Care Team Providers Care Ore Feeder Name Role Phone Roberta Wilde MD Primary Care Provider [phone] Reason for Visit * Reason Onset Date Comments Med Refill 07/24/2023 Encounter Details Date Type Department Care Team (Late st Contact Info) Description 07/24/2023 Refill [facility] MEDICAL [address] [place] [address] Roberta Wilde MD [address] [place] [address] Chronic midline low back pain with bilateral [...] Info) Description 09/27/2025 4:00 PM EST Telemedicine [facility] MEDICAL [address] [place] [address] Roberta Wilde MD [address] [place] [address] 10/13/2025 12:20 PM EST Office Visit [facility] [address] [facility] [place] [address] Roberta Wilde MD [address] [place] [address] documented as of this encounter Visit Diagnoses Diagnosis Chronic midline low back pain with bilateral sciatica Vitamin D deficiency ADHD, impulsive type Antisocial personality disorder (CMS/HCC) (HCC) Antisocial personality disorder documented in this encounter Care Teams Ore Feeder Relationship Specialty Start Date End Date Roberta Wilde MD [address] [place] [address] PCP - General Family Medicine 12/03/22 documented as of this encounter
--- OUTSIDE RECORDS SUMMARY | 2025-08-27 19:13 | XMS_ITS | Encounter Summary ---
Author Organization [employer] Address [address] [place] [address] [place] [address] Care Team Providers Care Physician Gynecologist Name Role Phone Roberta Wilde MD Primary Care Provider [phone] Reason for Visit * Reason Onset Date Comments Med Refill 01/02/2025 Encounter Details Date Type Department Care Team (Late st Contact Info) Description 01/02/2025 Refill [facility] MEDICAL [address] [place] [address] Roberta Wilde MD [address] [place] [address] Antisocial personality disorder (CMS/HCC); ADHD, impulsive type [...] Info) Description 09/27/2025 4:00 PM EST Telemedicine [facility] MEDICAL 70 [place] [address] Roberta Wilde MD [address] [place] [address] 10/13/2025 12:20 PM EST Office Visit [facility] MEDICAL 70 [place] [address] Roberta Wilde MD [address] [place] [address] documented as of this encounter Visit Diagnoses Diagnosis Antisocial personality disorder (CMS/HCC) (HCC) Antisocial personality disorder ADHD, impulsive type documented in this encounter Care Teams Physician Gynecologist Relationship Specialty Start Date End Date Roberta Wilde MD 70 [place] [address] PCP - General Family Medicine 12/03/22 documented as of this encounter
[2025-08-27] MEDS: Diphth,Pertus(ACell),Tet Adult 0.5 ML SYRINGE IM (19:17)
[2025-08-27 19:38] VITALS: BP 119/76; PULSE 81; RESP 18; TEMP 36.7; O2SAT 100
[2025-08-27 20:53] VITALS: BP 119/76; PULSE 81; RESP 18; TEMP 36.7; O2SAT 100
== END 2025-08-27 20:53 | disposition home or self-care (01) ==
PROVIDERS: Emergency Provider Student in an Organized Health Care Education/Training Program; PCP Family Medicine
DX: S61.012A Laceration without foreign body of left thumb without damage to nail, initial encounter (principal); W26.0XXA Contact with knife, initial encounter; Y93.89 Activity, other specified; Y92.9 Unspecified place or not applicable; Z23 Encounter for immunization
CPT/HCPCS: 12001; 90471; 90715; 99283; 99284

== ENCOUNTER 2025-09-25 12:47 | Outpatient (AMB) | payer MEDICAID, SELFPAY ==
[2025-09-25 13:01] VITALS: BP 120/70; PULSE 66; O2SAT 97
--- NOTE | 2025-09-25 13:01 | A.OFFVIS_ITS ---
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 Denies use of opiates, alcohol, and other substances. Engages in conversation re: coping with symptoms of a upper respiratory illness. [facility] Medical History Substance abuse HTN (hypertension) Alcoholism Social History Alcohol intake: current Patient Tobacco Use Status: Current someday Tobacco user Substance Use Type: Crack/Cocaine Review of Systems Const All systems reviewed & are unremarkable except as noted in HPI and below Physical Exam Vital Signs: Last Vital Signs Pulse 66 09/25/25 13:01 BP 120/70 09/25/25 13:01 Pulse Ox 97 09/25/25 13:01 Const General: cooperative Assessment & Plan Assessment & Plan (1) Opioid use disorder in remission: Code(s): F11.91 - Opioid use, unspecified, in remission Category: Medical Plan The plan of care is to continue with buprenorphine-naloxone 8-2 mg TID and follow-up in 2 months or sooner if needed. Encouraged to follow-up with primary care provider and/or urgent care if symptoms of upper respiratory illness worsen. Medications: Changed From buprenorphine-naloxone 8-2 mg (Suboxone) 1 film sublingual TID 30 days 90 ea 0RF To buprenorphine-naloxone 8-2 mg (Suboxone) One film sublingually 3 times per day 1 film sublingual TID 90 ea 1RF 30 days Patient Instructions: - Continue with buprenorphine-naloxone as prescribed. - Follow-up with primary care provider and/or urgent care if symptoms of upper respiratory illness worsen. - Follow-up in 2 months or sooner if needed. - Call with questions, concerns, or to report side effects/new onset of symptoms to [facility]. - The patient verbalized understanding and agreed with plan of care. Coding Level of Care Code Est Pt Level 3 (99377) Diagnoses Opioid use disorder in remission F11.91
== END 2025-09-25 13:18 | disposition home or self-care (01) ==
LOC: HO.HCC 12:47
PROVIDERS: PCP Family Medicine; Visit Provider Clinical Nurse Specialist Psychiatric/Mental Health
DX: F11.91 Opioid use, unspecified, in remission (principal)
CPT/HCPCS: 99213

== ENCOUNTER → 2025-09-25 12:47 | Outpatient (BNVA) | payer MEDICAID, SELFPAY | PROVIDERS: PCP Family Medicine; Visit Provider Clinical Nurse Specialist Psychiatric/Mental Health | DX: F11.91 Opioid use, unspecified, in remission (principal) | CPT/HCPCS: 99212 ==